=== PATIENT | female | born 2005 | race African-American/Black ===

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

== ENCOUNTER 2023-04-13 15:21 | Outpatient (CLI) | payer OTHER, SELFPAY | END 2023-04-13 15:22 | disposition home or self-care (01) | LOC: AMB 04-30 23:07 | PROVIDERS: PCP Family Medicine; Visit Provider Family Medicine | DX: R55 Syncope and collapse (principal) | CPT/HCPCS: A0425; A0427 ==

== ENCOUNTER 2023-04-13 15:49 | Emergency (ER) | payer OTHER, SELFPAY ==
[2023-04-13 15:54] VITALS: BP 137/91; PULSE 80; RESP 18; TEMP 37.6; O2SAT 95; BMI 33.5
[2023-04-13 16:00] VITALS: BP 137/92; PULSE 84; RESP 12; O2SAT 97
--- NOTE | 2023-04-13 16:07 | ED_ITS ---
HPI - General Adult General Chief complaint: Syncope/Fainted Stated complaint: Faint, short of breath Time Seen by Provider: 04/13/23 15:55 History of Present Illness HPI narrative: Patient was in class ([employer] [place] ) when she had 2 syncopal episodes while sitting at the desk. Notes stabbing chest pain. Currently being worked up for POTS. Patient notes she had a fever over the weekend up to 101.9, denies other sick symptoms. Blood sugar by EMS 90. 17-year-old young woman returning via EMS to the emergency department with concern of syncopal events. Apparently was sitting in class and felt things go black and a couple of occasions ultimately a 3rd as witnessed by significant other who accompanies. Does have a history of recurrent syncopal events currently being evaluated for POTS. Inconclusive to date. There was no head injury. Not described as particularly postictal. Apparently after these events today, had difficulty moving her extremities or standing up and so was recommended to come to the emergency department though she herself prefer not to. No shortness of breath. No cough or cold symptoms prior to this. No dysuria but is having some abdominal cramping now on day 2 of menses. Had a fever between 6 and 5 days ago measured up to 101.9. Has been chilled since. She has been worked up for what sounds to be a fibroma in the spine causing some radicular symptoms to her leg. She was not describing new pain prior to this event. Related Data Home Medications Medication Instructions Recorded Confirmed fluticasone propionate 50 1 spray intranasal DAILY 06/19/22 04/13/23 mcg/actuation nasal spray,suspension loratadine 10 mg tablet 10 mg PO DAILY 06/19/22 04/13/23 sertraline 100 mg tablet (Zoloft) 100 mg PO Q24H 06/19/22 04/13/23 sertraline 25 mg tablet (Zoloft) 25 mg PO DAILY 06/19/22 04/13/23 dextroamphetamine-amphetamine ER 1 cap PO DAILY 12/15/22 04/13/23 10 mg 24hr capsule,extend release (Adderall XR) divalproex 500 mg tablet,extended 500 mg PO DAILY 12/15/22 12/15/22 release 24 hr hydroxyzine HCl 25 mg tablet 25 - 50 mg PO DAILY PRN anxiety 04/13/23 04/13/23 ondansetron 4 mg disintegrating 4 mg PO Q8H PRN nausea/vomiting 04/13/23 04/13/23 tablet Previous Rx's Medication Instructions Recorded prednisone 20 mg tablet 20 mg PO BID #10 tabs 12/15/22 Allergies Allergy/AdvReac Type Severity Reaction Status Date / Time Barnes And Derivatives Allergy Severe Anaphylaxis Verified 04/13/23 15:53 tomato Allergy Intermediate Rash Verified 04/13/23 15:53 adhesive Allergy Unknown Verified 04/13/23 15:53 grapefruit Allergy Unknown Rash Verified 04/13/23 15:53 pineapple Allergy Unknown Rash Verified 04/13/23 15:53 dairy Allergy Intermediate Gi Uncoded 12/15/22 19:11 intolerance Review of Systems Status of ROS: Reports: 6 or more systems reviewed and unremarkable except as noted in History and below [facility] Medical History Seasonal allergies ?J30.2 - Other seasonal allergic rhinitis (ICD-10) Fainting ?R55 - Syncope and collapse (ICD-10) Anxiety and depression ?F41.9 - Anxiety disorder, unspecified (ICD-10) ?F32.A - Depression, unspecified (ICD-10) Asthma ?J45.909 - Unspecified asthma, uncomplicated (ICD-10) Anemia ?D64.9 - Anemia, unspecified (ICD-10) Surgical History History of wisdom tooth extraction ?K08.409 - Partial loss of teeth, unspecified cause, unspecified class (ICD- 10) Social History Smoking Status: Never smoker Do you use any of these nicotine containing products: Vaping Products Second hand tobacco smoke exposure: No How often do you have a drink containing alcohol: never How often do you have six or more drinks on one occasion: Never AUDIT-C Alcohol total score: 0 Non-prescribed substance use: denies use service: No Exam Narrative: Exam Narrative: Pleasant. NAD. With good energy. Breathing easily. Head is atraumatic. Cranial nerves 2-12 intact. No nystagmus evident. Pupils are equal and briskly reactive. Oropharynx unremarkable. Neck is supple without lymphadenopathy. TMs bilaterally are clear. She is sensitive though with this exam but I do not appreciate any inflammation of the ear canals. Heart in a regular rate and rhythm without murmur rub or gallop. Moving all extremities without difficulty. Sensation appears to be intact. Well-perfused peripherally. Abdomen is soft nontender in the upper abdomen. Const: Vital Signs, click to edit/add: Vital Signs - 24 hr 04/13/23 15:54 Temperature 99.6 F Pulse Rate [Pulse Oximeter] 80 Respiratory Rate 18 Blood Pressure [Ri ght Upper Arm] 137/91 H Pulse Oximetry 95 Oxygen Delivery Me thod Room Air Documenting provider has reviewed patient's vital signs: yes Course Vital Signs Vital signs: Initial Vital Signs Temperature 99.6 F 04/13/23 15:54 Temperature Source Temporal Artery Scan 04/13/23 15:54 Pulse Rate 80 04/13/23 15:54 Respiratory Rate 18 04/13/23 15:54 Blood Pressure 137/91 H 04/13/23 15:54 Blood Pressure Mean 106 H 04/13/23 15:54 Blood Pressure Position Sitting 04/13/23 15:54 Pulse Oximetry 95 04/13/23 15:54 Oxygen Delivery Method Room Air 04/13/23 15:54 Vital Signs Temperature 99.6 F 04/13/23 15:54 Pulse Rate 80 04/13/23 15:54 Respiratory Rate 18 04/13/23 15:54 Blood Pressure 137/91 H 04/13/23 15:54 Pulse Oximetry 95 04/13/23 15:54 Oxygen Delivery Method Room Air 04/13/23 15:54 Temperature 99.6 F 04/13/23 15:54 Pulse Rate 84 04/13/23 16:30 Respiratory Rate 11 L 04/13/23 16:30 Blood Pressure 137/87 04/13/23 16:30 Pulse Oximetry 96 04/13/23 16:30 Oxygen Delivery Method Room Air 04/13/23 16:00 Medical Decision Making MDM Narrative Medical decision making narrative: Has had extensive evaluation for the syncopal events. Lab evaluation by me in the past has been negative. Wondering if this may have been a pain response with history of low resting tone and anxiety. Have also though been under some physical stress as sounds to have been ill. With no other symptoms I would screen for COVID/influenza and urinalysis which in the setting of menses would wait to verify singular culture before treating. EKG had already been collected. Discussed considerations and offered IV hydration as well as antiemetic as expressing some nausea. They would rather return home. See patient discharge plan Lab Data Labs: Lab Results 04/13/23 04/13/23 Range/Units 16:25 16:55 Urine Color Yellow (Yellow) Urine Appearance Clear (Clear) Urine pH 7.5 (5.0-8.5) Ur Specific [place] 1.025 (1.000-1.030) Urine Protein Negative (Negative) Urine Glucose (UA) Negative (Negative) Urine Ketones Negative (Negative) Urine Blood 1+ A (Negative) Urine Nitrite Negative (Negative) Urine Bilirubin Negative (Negative) Urine Urobilinogen 0.2 (0.2-1.0) Ur Leukocyte Esterase Negative (Negative) Urine RBC 0-2 (0-2) Urine WBC 0-2 (0-5) Ur Squamous Epith Cells Few (None-Few) Urine Bacteria Few A (None) SARS-CoV-2 (PCR) Negative SARS-CoV-2 (Negative) Influenza Type A (PCR) Negative PCR FLU A (Negative) Influenza Type B (PCR) Negative PCR FLU B (Negative) ECG Data Attestation: I personally reviewed and interpreted this ECG as follows: (Normal sinus rhythm rate of 79 without acute ischemic changes.) Discharge Plan Discharge Clinical Impression: Fever, Syncope Patient Disposition: Home w/ Parent or Adult Condition: Improved Additional Instructions: Stay well-hydrated. Rest. Ibuprofen or acetaminophen for chills. I will call you if any of these results warrant discussion or positive. Return as needed. Prescriptions: No Action fluticasone propionate 50 mcg/actuation spray,suspension 1 spray INTRANASAL DAILY Patient Comments: INSTILL 1 SPRAY INTO AFFECTED NOSTRIL/S DAILY loratadine 10 mg tablet 10 mg PO DAILY Patient Comments: TAKE 1 TABLET (10 MG TOTAL) BY MOUTH DAILY sertraline [Zoloft] 100 mg tablet 100 mg PO Q24H sertraline [Zoloft] 25 mg tablet 25 mg PO DAILY divalproex 500 mg tablet extended release 24 hr 500 mg PO DAILY dextroamphetamine-amphetamine [Adderall XR] 10 mg capsule,extended release 24hr 1 cap PO DAILY prednisone 20 mg tablet 20 mg PO BID Qty: 10 0RF hydroxyzine HCl 25 mg tablet 25 - 50 mg PO DAILY PRN (Reason: anxiety) ondansetron 4 mg tablet,disintegrating 4 mg PO Q8H PRN (Reason: nausea/vomiting) Follow Up/Referrals: Evelia Garcia MD [Primary Care Provider] - Stand Alone Forms: [employer] Info Instructions
[2023-04-13 16:30] VITALS: BP 137/87; PULSE 84; RESP 11; O2SAT 96
[2023-04-13 17:03] LABS: Appearance Urine Clear (Clear); Bilirubin Urine Negative (Negative); Blood Urine 1+ (Negative); Color Urine Yellow (Yellow); Glucose Urine Negative (Negative); Ketones Urine Negative (Negative); Leukocyte Esterase Urine Negative (Negative); Nitrite Urine Negative (Negative); Protein Urine Negative (Negative); Specific Gravity Urine 1.025 (1.000-1.030); Urobilinogen Urine 0.2 (0.2-1.0); pH Urine 7.5 (5.0-8.5)
[2023-04-13 17:32] LABS: Bacteria Urine Few; RBC Urine 0-2 (0-2); Squamous Epithelial Cell Urine Few (None-Few); WBC Urine 0-2 (0-5)
[2023-04-13 17:41] LABS: PCR FLU A Negative PCR FLU A (Negative); PCR FLU B Negative PCR FLU B (Negative)
[2023-04-13 17:43] LABS: SARS PCR* Negative SARS-CoV-2 (Negative)
--- NOTE | 2023-04-19 15:13 | ED.NURSE ---
Patient called requesting note that she was seen in ED on 04/13/23 for travel reimbursement (cancelled flight). Note left at front desk receptionist desk for garbage pick up man stating patient was seen in ED on 04/13/23.
== END 2023-04-13 17:07 | disposition home or self-care (01) ==
LOC: ED 16:52
PROVIDERS: Emergency Provider Family Medicine; PCP Family Medicine
DX: R50.9 Fever, unspecified (principal); R55 Syncope and collapse
CPT/HCPCS: 81001; 87086; 87631; 93005; 99284

== ENCOUNTER 2023-04-18 17:43 | Outpatient (CLI) | payer OTHER, SELFPAY | END 2023-04-18 17:44 | disposition home or self-care (01) | PROVIDERS: PCP Family Medicine; Visit Provider Registered Nurse | DX: R50.9 Fever, unspecified (principal); R51.9 Headache, unspecified | CPT/HCPCS: 86618 ==

== ENCOUNTER 2023-06-06 18:55 | Outpatient (CLI) | payer OTHER, SELFPAY | END 2023-06-06 18:56 | disposition home or self-care (01) | LOC: AMB 06-09 06:09 | PROVIDERS: PCP Family Medicine; Visit Provider Family Medicine | DX: R56.9 Unspecified convulsions (principal); R55 Syncope and collapse | CPT/HCPCS: A0998 ==

== ENCOUNTER 2023-06-06 19:53 | Outpatient (CLI) | payer OTHER, MEDICAID, SELFPAY | END 2023-06-06 19:54 | disposition home or self-care (01) | LOC: AMB 06-09 06:13 | PROVIDERS: PCP Family Medicine; Visit Provider Family Medicine | DX: R55 Syncope and collapse (principal); R56.9 Unspecified convulsions | CPT/HCPCS: A0425; A0427 ==

== ENCOUNTER 2023-06-06 20:21 | Emergency (ER) | payer OTHER, MEDICAID, SELFPAY ==
[2023-06-06 20:38] VITALS: BP 132/101; PULSE 84; RESP 16; TEMP 36.7; O2SAT 99
[2023-06-06 20:51] VITALS: BP 137/92; PULSE 88; O2SAT 98
[2023-06-06 20:52] VITALS: PULSE 89; RESP 19; O2SAT 98
[2023-06-06 21:00] VITALS: PULSE 88; RESP 17; O2SAT 98
[2023-06-06 21:01] VITALS: BP 135/94; PULSE 83; RESP 18; O2SAT 97
[2023-06-06 21:45] VITALS: BP 127/88
--- NOTE | 2023-06-06 22:28 | ED.GENADULT ---
HPI - General Adult General Date Seen: 06/06/23 Chief complaint: Syncope/Fainted Stated complaint: Syncopal seizure Time Seen by Provider: 06/06/23 20:48 History of Present Illness HPI narrative: This is a 17-year-old female brought to the ER today by EMS for possible seizures. [facility] reports that she has a history of possible absence seizures when she was a child, also is currently being worked up for seizures, being worked up for POTS, as well as other medical conditions. EMS reports that she has had multiple episodes today where she seemed to have eye fluttering and unresponsive spells. There been perhaps 20 or 25 episodes today. 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 Her roommate had witnessed the spells. Initially the patient had refused to come to the ER even though her roommate wanted her to come in for evaluation. Her roommate then insisted that they come. They were coming by private car and she had more spells in route. 911 was called. Paramedics responded. The notice that the patient had episodes which seem to have snoring respirations, let her head slumped back, eyes were fluttering, and went unresponsive. She did not respond to sternal rub. No definite seizure activity in her arms or legs. She had a couple more episodes EN route. EMS thought they saw that the patient desaturated down to the 70s briefly. They put her on oxygen. They have not been able to establish an IV. Related Data Home Medications Medication Instructions Recorded Confirmed fluticasone propionate 50 1 spray intranasal DAILY 06/19/22 04/18/23 mcg/actuation nasal spray,suspension loratadine 10 mg tablet 10 mg PO DAILY 06/19/22 04/18/23 sertraline 100 mg tablet (Zoloft) 100 mg PO Q24H 06/19/22 04/18/23 sertraline 25 mg tablet (Zoloft) 25 mg PO DAILY 06/19/22 04/18/23 dextroamphetamine-amphetamine ER 1 cap PO DAILY 12/15/22 04/18/23 10 mg 24hr capsule,extend release (Adderall XR) divalproex 500 mg tablet,extended 500 mg PO DAILY 12/15/22 04/18/23 release 24 hr hydroxyzine HCl 25 mg tablet 25 - 50 mg PO DAILY PRN anxiety 04/13/23 04/18/23 ondansetron 4 mg disintegrating 4 mg PO Q8H PRN nausea/vomiting 04/13/23 04/18/23 tablet Previous Rx's Medication Instructions Recorded prednisone 20 mg tablet 20 mg PO BID #10 tabs 12/15/22 Allergies Allergy/AdvReac Type Severity Reaction Status Date / Time [place] And Derivatives Allergy Severe Anaphylaxis Verified 04/13/23 15:53 tomato Allergy Intermediate Rash Verified 04/13/23 15:53 adhesive Allergy Unknown Verified 04/13/23 15:53 grapefruit Allergy Unknown Rash Verified 04/13/23 15:53 pineapple Allergy Unknown Rash Verified 04/13/23 15:53 dairy Allergy Intermediate Gi Uncoded 12/15/22 19:11 intolerance PFSH PFSH Medical History Seasonal allergies ?J30.2 - Other seasonal allergic rhinitis (ICD-10) Fainting ?R55 - Syncope and collapse (ICD-10) Anxiety and depression ?F41.9 - Anxiety disorder, unspecified (ICD-10) ?F32.A - Depression, unspecified (ICD-10) Asthma ?J45.909 - Unspecified asthma, uncomplicated (ICD-10) Anemia ?D64.9 - Anemia, unspecified (ICD-10) Surgical History History of wisdom tooth extraction ?K08.409 - Partial loss of teeth, unspecified cause, unspecified class (ICD-10) Social History Smoking Status: Never smoker Do you use any of these nicotine containing products: Vaping Products Second hand tobacco smoke exposure: No How often do you have a drink containing alcohol: never How often do you have six or more drinks on one occasion: Never AUDIT-C Alcohol total score: 0 Non-prescribed substance use: denies use service: No Exam Narrative: Exam Narrative: A-patent. No stridor. Bi-lung sounds clear and equal. Oxygen 98 100% on room air. C-no active bleeding. Nurses are working on getting an IV. Blood pressure normal. Normal cap refill D-patient presents with unusual spells. She has twitching her eyelids and fluttering her eyes side to side without any other clear facial tic. She is making some unusual groaning/snoring respirations sounds. Initially concerning for possible partial seizure. EMS report that she did not respond to sternal rub. She does respond to trapezius pinch which abruptly ceases her fluttering she becomes awake. She says that her shoulder is sore. She had another episode of fluttering and sonorous respirations that again ceased when she was splashed in the face with 5 mL of cold saline. Given the abrupt response to external stimuli that causes sensation of these episodes I am confident they are not seizures. Once her seizure-like activity spells ceases she is more conversant. Airways patent. Phonation is normal. Constitutional: Appears well-developed and well-nourished. Alert. Annual she is initially fairly conversant. When I try to ask her about any psychosocial stressors she usually says there are none. She then volunteers that her mother and her mother's are getting . She says that the divorce is not bother her but the fact that her mother's may get ?half of her stuff? including her dog Reagan, it really bothers her. She feels like it is not fair, even though that is the way [place] law his written. When we start talking about this she then developed some odd tics, twisting her head to the right in turning her head right word. I verbally challenged her that I think the tics or probably psychosomatic and she stopped them. Non toxic. HENT: Head: Atraumatic. Nose: Nose normal. Mouth/Throat: Oral mucosa is clear and moist. no trismus. Pharynx normal. Tonsils symmetric. No tonsillar enlargement, erythema, or exudate. Eyes: Conjunctivae normal. EOM normal. Pupils equal, round, and reactive to light. No scleral icterus. Neck: Normal range of motion. Neck supple. No tracheal deviation present. Cardiovascular: Normal rate, regular rhythm. No gallop. No friction rub. No murmur heard. Symmetric radial artery pulses Pulmonary/Chest: Effort normal. No stridor. No respiratory distress. No wheezes. No rales. No rhonchi . No tenderness. Abdominal: Soft. Bowel sounds normal. No distension. No mass. No tenderness. No rebound. No guarding. Musculoskeletal: RUE: Normal range of motion. No tenderness. No deformity LUE: Normal range of motion. No tenderness. No deformity RLE: Normal range of motion. No edema. No tenderness. No deformity LLE: Normal range of motion. No edema. No tenderness. No deformity Lymph: No cervical adenopathy. Neurological: Alert and oriented to person, place, and time. Normal strength. CN II-VII intact. No sensory deficit. GCS eye subscore is 4. GCS verbal subscore is 5. GCS motor subscore is 6. Normal coordination Skin: Skin is warm and dry. No rash noted. No pallor. Normal capillary refill. Psychiatric: Patient presented by EMS after having had multiple repetitive neurologic events. Based on her response to physical stimuli here in the ER I am confident that these are nonepileptic seizures. These are probably pseudoseizures. She also developed some tics here in the ER. I tried to spend time with the patient, and her roommate, to discuss the presentation. I am concerned that these probably are sub conscious/manifestations of mental health. My recommendation was to pursue her that workup. I requested that the patient talk with JOSE. We discussed that perhaps we could add additional outpatient resources, or even possibly pursue an inpatient admission if the spells are becoming so frequent that they were disruptive to her life, and her roommates life, in the dorm. Patient declines to speak with josek. She refuses. I discussed that it is difficult to get her any resources without getting further evaluation with them. Patient does not want inpatient admission. She does not want any further outpatient resources. Patient says she is not suicidal. She denies any other stressors other than her mother's divorce. She says she likes her professors and is doing well in her classes. She denies any other relationship stresses. Subsequently her roommate arrives. Roommate is very supportive. Const: Vital Signs, click to edit/add: Vital Signs - 24 hr 06/06/23 20:38 06/06/23 20:51 06/06/23 20:52 Temperature 98.1 F Pulse Rate 88 89 Pulse Rate [Pulse Oximeter] 84 Respiratory Rate 16 19 Blood Pressure 137/92 H Blood Pressure [Ri ght Upper Arm] 132/101 H Pulse Oximetry 99 98 98 Oxygen Delivery Me thod Room Air 06/06/23 21:00 06/06/23 21:01 06/06/23 21:45 Temperature Pulse Rate 88 83 Pulse Rate [Pulse Oximeter] Respiratory Rate 17 18 Blood Pressure 135/94 H 127/88 Blood Pressure [Ri ght Upper Arm] Pulse Oximetry 98 97 Oxygen Delivery Me thod Course Course ED Course: Initial evaluation performed. We determined that the patient was having pseudoseizures and not epileptic seizures. I offered further evaluation and mental health evaluation but patient is refusing. She says she just wants to go home. I asked the patient to at least complete an ambulation trial. When she stood up at the edge of the bed she is says she got dizzy and nearly fainted. She lowered herself to the floor. This apparently has been a problem for her lately and she is being worked up for POTS. Vital signs are otherwise stable, including blood pressure. I do not think this truly represents a cardiac event or near syncope. Suspect this is probably related to her mental health, similar to her pseudoseizures in her tics from earlier in the ER course. Patient rested in bed for a while. I re-evaluated. I had another long conversation with the patient and her roommate. I again recommended that we pursue a mental health evaluation. The patient again firmly declines. She is really resistant to pursuing that avenue of evaluation. She says she just wants to go home. I asked her to re-attempt ambulation trial with me. She was able to stand up. She did not have any dizziness or fall. Her gait was abnormal. Her steps were slow. With each step she would pause for a minute voice with her the rear foot up on the toes and then abruptly swing at forward in step-down. Then the new rear foot would pause upon the toes and then swing forward. She was initially holding onto me and grabbing onto the cabinets in her room. When I asked her why she was holding on for balance and challenge her on that she actually then could walk without holding onto anything. She ambulated in the hallway with me with her slow and irregular gait all the way to the bathroom without falling. She then ambulated back from the bathroom with a more steady gait. No longer which she having the pauses with her feet boys on the toes. While she was in the bathroom I met with the patient's roommate to disc to meet privately. Patient verbalizes her understanding that were concerned about a mental health crisis. When she got back from her bathroom, I again offered further evaluation of the patient. I am not clear if she has any insight about what is causing her symptoms. She does not want further evaluation. She just wants discharge home. As she is now ambulatory, not suicidal, no longer having her seizure-like spells, I do not have any criteria to place her on a hold. I told her, with honesty, that I feel like it is a mistake for her to go home at this point without some further resources but ultimately I cannot force her to stay. She discharged home with a roommate. She says she will follow up with her outpatient psychiatrist and her counselor. Reevaluation(s) Reevaluation #1: After the patient left her mother Jana called [phone] for an update. I called the patient's mother back. I left a message but she did not answer. Vital Signs Vital signs: Initial Vital Signs Temperature 98.1 F 06/06/23 20:38 Temperature Source Temporal Artery Scan 06/06/23 20:38 Pulse Rate 84 06/06/23 20:38 Respiratory Rate 16 06/06/23 20:38 Blood Pressure 132/101 H 06/06/23 20:38 Blood Pressure Mean 111 H 06/06/23 20:38 Blood Pressure Position Supine 06/06/23 20:38 Pulse Oximetry 99 06/06/23 20:38 Oxygen Delivery Method Room Air 06/06/23 20:38 Vital Signs Temperature 98.1 F 06/06/23 20:38 Pulse Rate 84 06/06/23 20:38 Respiratory Rate 16 06/06/23 20:38 Blood Pressure 132/101 H 06/06/23 20:38 Pulse Oximetry 99 06/06/23 20:38 Oxygen Delivery Method Room Air 06/06/23 20:38 Temperature 98.1 F 06/06/23 20:38 Pulse Rate 83 06/06/23 21:01 Respiratory Rate 18 06/06/23 21:01 Blood Pressure 127/88 06/06/23 21:45 Pulse Oximetry 97 06/06/23 21:01 Oxygen Delivery Method Room Air 06/06/23 20:38 Discharge Plan Discharge Clinical Impression: Psychogenic nonepileptic seizure, Behavioral tic Patient Disposition: Home, Self-Care Condition: Stable Instructions: Epilepsy (DC) Additional Instructions: Please return to the ER right away if you have any concerns, more shaking events, unconscious spells, or any other problems. Please follow-up with her psychiatrist and her counselor soon as possible. Please follow-up with your doctors for your recheck. Prescriptions: No Action fluticasone propionate 50 mcg/actuation spray,suspension 1 spray INTRANASAL DAILY Patient Comments: INSTILL 1 SPRAY INTO AFFECTED NOSTRIL/S DAILY loratadine 10 mg tablet 10 mg PO DAILY Patient Comments: TAKE 1 TABLET (10 MG TOTAL) BY MOUTH DAILY sertraline [Zoloft] 100 mg tablet 100 mg PO Q24H sertraline [Zoloft] 25 mg tablet 25 mg PO DAILY divalproex 500 mg tablet extended release 24 hr 500 mg PO DAILY dextroamphetamine-amphetamine [Adderall XR] 10 mg capsule,extended release 24hr 1 cap PO DAILY prednisone 20 mg tablet 20 mg PO BID Qty: 10 0RF hydroxyzine HCl 25 mg tablet 25 - 50 mg PO DAILY PRN (Reason: anxiety) ondansetron 4 mg tablet,disintegrating 4 mg PO Q8H PRN (Reason: nausea/vomiting) Follow Up/Referrals: Evelia Garcia MD [Primary Care Provider] - Stand Alone Forms: [employer] Info Instructions
== END 2023-06-06 22:35 | disposition home or self-care (01) ==
PROVIDERS: Emergency Provider Emergency Medicine; PCP Family Medicine
DX: R56.9 Unspecified convulsions (principal); F95.8 Other tic disorders
CPT/HCPCS: 99283; 99284

== ENCOUNTER 2023-06-08 13:04 | Outpatient (CLI) | payer OTHER, SELFPAY | END 2023-06-08 13:05 | disposition home or self-care (01) | LOC: AMB 06-09 07:12 | PROVIDERS: PCP Family Medicine; Visit Provider Family Medicine | DX: R55 Syncope and collapse (principal) | CPT/HCPCS: A0425; A0427 ==

== ENCOUNTER 2023-06-08 13:41 | Emergency (ER) | payer OTHER, SELFPAY ==
[2023-06-08 13:45] VITALS: BP 119/86; PULSE 90; RESP 16; TEMP 36.5; O2SAT 98; BMI 34.2
--- NOTE | 2023-06-08 13:55 | ED_ITS ---
HPI - General Adult General Time Seen by Provider: 13:55 Date Seen: 06/08/23 Chief complaint: Syncope/Fainted Stated complaint: syncope Time Seen by Provider: 06/08/23 13:45 Source: patient Mode of arrival: EMS History of Present Illness HPI narrative: Patient is a 17-year-old single student who presents with near syncope x2 today. She apparently was in with other students and passed out and was taken to the ground, she passed out nearly in the ambulance gurney. She was brought in by EMS. Patient has been here several times and has probable significant psychosocial issues, anxiety depression, she there has been some question whether she has seizures but she canceled and EEG she had in the past due to a final tests test. Patient reports she really likes school she is from [facility], she was here Tuesday with similar symptoms. She has had no chest pain breathing problem fever chills or other systemic signs of illness no leg swelling or edema no bleeding or clotting problems. Was recommended she get mental health evaluation. She has worked with s iron worker and neurologist, as well as mental health professionals and it is felt that she may have a component of POTS syndrome, or a manifestation of mental illness although that did not make her happy to hear that. Patient denies symptoms at this time and feels well. She has noticed when she eats salty foods she feels much better. She is enjoying her classes she is from [place] as mention. She denies . She reports she has had no trauma or injury. Related Data Home Medications Medication Instructions Recorded Confirmed fluticasone propionate 50 1 spray intranasal DAILY 06/19/22 06/08/23 mcg/actuation nasal spray,suspension loratadine 10 mg tablet 10 mg PO DAILY 06/19/22 06/08/23 sertraline 100 mg tablet (Zoloft) 100 mg PO Q24H 06/19/22 06/08/23 sertraline 25 mg tablet (Zoloft) 25 mg PO DAILY 06/19/22 06/08/23 dextroamphetamine-amphetamine ER 1 cap PO DAILY 12/15/22 06/08/23 10 mg 24hr capsule,extend release (Adderall XR) divalproex 500 mg tablet,extended 500 mg PO DAILY 12/15/22 06/08/23 release 24 hr hydroxyzine HCl 25 mg tablet 25 - 50 mg PO DAILY PRN anxiety 04/13/23 06/08/23 ondansetron 4 mg disintegrating 4 mg PO Q8H PRN nausea/vomiting 04/13/23 06/08/23 tablet Previous Rx's Medication Instructions Recorded prednisone 20 mg tablet 20 mg PO BID #10 tabs 12/15/22 Allergies Allergy/AdvReac Type Severity Reaction Status Date / Time [place] And Derivatives Allergy Severe Anaphylaxis Verified 06/08/23 14:05 tomato Allergy Intermediate Rash Verified 06/08/23 14:05 adhesive Allergy Unknown Verified 06/08/23 14:05 grapefruit Allergy Unknown Rash Verified 06/08/23 14:05 pineapple Allergy Unknown Rash Verified 06/08/23 14:05 dairy Allergy Intermediate Gi Uncoded 12/15/22 19:11 intolerance Review of Systems Status of ROS: Reports: 6 or more systems reviewed and unremarkable except as noted in History and below [facility] Medical History Seasonal allergies ?J30.2 - Other seasonal allergic rhinitis (ICD-10) Fainting ?R55 - Syncope and collapse (ICD-10) Anxiety and depression ?F41.9 - Anxiety disorder, unspecified (ICD-10) ?F32.A - Depression, unspecified (ICD-10) Asthma ?J45.909 - Unspecified asthma, uncomplicated (ICD-10) Anemia ?D64.9 - Anemia, unspecified (ICD-10) Surgical History History of wisdom tooth extraction ?K08.409 - Partial loss of teeth, unspecified cause, unspecified class (ICD- 10) Social History Smoking Status: Never smoker Do you use any of these nicotine containing products: Vaping Products Second hand tobacco smoke exposure: No How often do you have a drink containing alcohol: never How often do you have six or more drinks on one occasion: Never AUDIT-C Alcohol total score: 0 Non-prescribed substance use: denies use service: No Exam Narrative: Exam Narrative: Objective in general the patient is animated alert, no distress cough talking in even unlabored sentences. Vital signs per a paramedics are unremarkable Alert orient x3 Neurologic nonfocal Pulses regular Heart regular no murmur Lungs clear denies abdominal pain Good peripheral perfusion Const: Vital Signs, click to edit/add: Vital Signs - 24 hr 06/08/23 13:45 Temperature 97.7 F Pulse Rate [Pulse Oximeter] 90 Respiratory Rate 16 Blood Pressure [Ri ght Upper Arm] 119/86 Pulse Oximetry 98 Oxygen Delivery Me thod Room Air Course Vital Signs Vital signs: Initial Vital Signs Temperature 97.7 F 06/08/23 13:45 Temperature Source Temporal Artery Scan 06/08/23 13:45 Pulse Rate 90 06/08/23 13:45 Pulse Rhythm Regular 06/08/23 13:45 Pulse Strength 3+ Normal 06/08/23 13:45 Respiratory Rate 16 06/08/23 13:45 Blood Pressure 119/86 06/08/23 13:45 Blood Pressure Mean 97 06/08/23 13:45 Blood Pressure Position Semi-Fowlers 06/08/23 13:45 Pulse Oximetry 98 06/08/23 13:45 Oxygen Delivery Method Room Air 06/08/23 13:45 Vital Signs Temperature 97.7 F 06/08/23 13:45 Pulse Rate 90 06/08/23 13:45 Respiratory Rate 16 06/08/23 13:45 Blood Pressure 119/86 06/08/23 13:45 Pulse Oximetry 98 06/08/23 13:45 Oxygen Delivery Method Room Air 06/08/23 13:45 Temperature 97.7 F 06/08/23 13:45 Pulse Rate 90 06/08/23 13:45 Respiratory Rate 16 06/08/23 13:45 Blood Pressure 119/86 06/08/23 13:45 Pulse Oximetry 98 06/08/23 13:45 Oxygen Delivery Method Room Air 06/08/23 13:45 Medical Decision Making [facility] Narrative Medical decision making narrative: 17-year-old since college student with mental health issues, question of POTS syndrome. Possible pseudo-seizure activity. At this point recommend just rechecking her EKG which looks to show normal sinus rhythm by my read. Also check her heme 4 basic 7 and she will be allowed to eat some salty food which tends to make her feel better. She feels she is able to go home and I would agree with that. She can follow up with regular physicians as needed. Addendum 2:35 p.m. patient has been stable, and has normal lab studies. EKG looks reassuring I thin we can allow the patient to proceed home. Follow up with providers as planned return as needed. Lab Data Labs: Lab Results 06/08/23 Range/Units 13:59 WBC 4.24 L (4.50-11.00) K/uL RBC 4.29 (4.00-5.20) m/uL Hgb 12.5 (12.0-16.0) gm/dL Hct 39.7 (33.0-51.0) % MCV 93 (80-100) fL MCH 29 (26-34) pg MCHC 32 (32-36) gm/dL RDW Coeff of Preeti 11.5 (11.5-15.5) % Plt Count 274 (140-440) K/uL Neut % (Auto) 41.7 L (42.0-72.0) % Lymph % (Auto) 45.3 H (20-44) % [place] % (Auto) 9.7 (0.0-11.0) % Eos % (Auto) 2.6 (0.0-7.0) % Baso % (Auto) 0.7 (0.0-3.0) % Neut # (Auto) 1.80 (1.7-7.0) K/uL Lymph # (Auto) 1.90 (0.90-2.90) K/uL [place] # (Auto) 0.40 (0.00-0.90) K/UL Eos # (Auto) 0.10 (0.00-0.50) K/uL Baso # (Auto) 0.00 (0.00-0.30) K/uL Abs Immat Gran (auto) 0.00 (0.00-0.30) K/uL Imm/Tot Granulo (auto) 0.0 % Sodium 140 (135-149) mmol/L Potassium 4.7 (3.6-5.1) mmol/L Chloride 106 (96-114) mmol/L Carbon Dioxide 27 (20-32) mmol/L Anion Gap 7 (7-15) mEq/L BUN 15 (5-24) mg/dL Creatinine 0.6 (0.6-1.2) mg/dL Estimated Creat Clear 152.13 Estimated GFR 133 ml/min Glucose 83 (60-115) mg/dL Calcium 9.7 (8.7-10.8) mg/dL Discharge Plan Discharge Clinical Impression: Behavioral tic, Near syncope Condition: Improved Additional Instructions: Recommend salty food, continue home medications, follow up with regular physician group as planned. Return to ED as needed. Would avoid driving or athletics over the next week or 2 until re-evaluated by your care team Activity Level: No Restrictions Discharge Diet: Regular Prescriptions: No Action fluticasone propionate 50 mcg/actuation spray,suspension 1 spray INTRANASAL DAILY Patient Comments: INSTILL 1 SPRAY INTO AFFECTED NOSTRIL/S DAILY loratadine 10 mg tablet 10 mg PO DAILY Patient Comments: TAKE 1 TABLET (10 MG TOTAL) BY MOUTH DAILY sertraline [Zoloft] 100 mg tablet 100 mg PO Q24H sertraline [Zoloft] 25 mg tablet 25 mg PO DAILY divalproex 500 mg tablet extended release 24 hr 500 mg PO DAILY dextroamphetamine-amphetamine [Adderall XR] 10 mg capsule,extended release 24hr 1 cap PO DAILY prednisone 20 mg tablet 20 mg PO BID Qty: 10 0RF hydroxyzine HCl 25 mg tablet 25 - 50 mg PO DAILY PRN (Reason: anxiety) ondansetron 4 mg tablet,disintegrating 4 mg PO Q8H PRN (Reason: nausea/vomiting) Follow Up/Referrals: Evelia Garcia MD [Primary Care Provider] - Stand Alone Forms: [employer] Info Instructions
[2023-06-08 14:07] LABS: Basophils Percent Auto 0.7 % (0.0-3.0); Eosinophils Percent Auto 2.6 % (0.0-7.0); Hematocrit 39.7 % (33.0-51.0); Hemoglobin* 12.5 gm/dL (12.0-16.0); Lymphocytes Percent Auto 45.3 % (20-44); Mean Corpuscular HGB Conc 32 gm/dL (32-36); Mean Corpuscular Hemoglobin 29 pg (26-34); Mean Corpuscular Volume 93 fL (80-100); Monocytes Percent Auto 9.7 % (0.0-11.0); Neutrophils Percent Auto 41.7 % (42.0-72.0); Platelet Count* 274 K/uL (140-440); RDW Coefficient of Variation % 11.5 % (11.5-15.5); Red Blood Count 4.29 m/uL (4.00-5.20); White Blood Count* 4.24 K/uL (4.50-11.00)
[2023-06-08 14:21] LABS: Slide Review Reflex No
[2023-06-08 14:28] LABS: Chloride* 106 mmol/L (96-114); Potassium* 4.7 mmol/L (3.6-5.1); Sodium* 140 mmol/L (135-149)
[2023-06-08 14:31] LABS: Anion Gap 7 mEq/L (7-15); Blood Urea Nitrogen* 15 mg/dL (5-24); Carbon Dioxide* 27 mmol/L (20-32); Creatinine* 0.6 mg/dL (0.6-1.2); Est. Creatinine Clearance* 152.13; Estimated Glomerular Filt Rate 133 ml/min; Glucose* 83 mg/dL (60-115)
[2023-06-08 14:32] LABS: Calcium* 9.7 mg/dL (8.7-10.8)
== END 2023-06-08 14:45 | disposition home or self-care (01) ==
PROVIDERS: Emergency Provider Family Medicine; PCP Family Medicine
DX: F95.8 Other tic disorders (principal); R55 Syncope and collapse
CPT/HCPCS: 36415; 80048; 85025; 93005; 99284

== ENCOUNTER 2023-06-14 18:44 | Outpatient (CLI) | payer OTHER, SELFPAY | END 2023-06-14 18:45 | disposition home or self-care (01) | LOC: AMB 06-20 15:15 | PROVIDERS: PCP Family Medicine; Visit Provider Student in an Organized Health Care Education/Training Program | DX: R53.1 Weakness (principal) | CPT/HCPCS: A0998 ==

== ENCOUNTER 2023-06-15 12:18 | Outpatient (CLI) | payer OTHER, SELFPAY | END 2023-06-15 12:19 | disposition home or self-care (01) | LOC: AMB 06-20 15:32 | PROVIDERS: PCP Family Medicine; Visit Provider Family Medicine | DX: R55 Syncope and collapse (principal) | CPT/HCPCS: A0425; A0429 ==

== ENCOUNTER 2023-06-15 12:42 | Emergency (ER) | payer OTHER, SELFPAY ==
--- NOTE | 2023-06-15 12:51 | ED.GENADULT ---
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 She has been diagnosed with potential pots disorder, and has been worked up by Neurology and Cardiology. She felt too hot today as she is ?unable to regulate her temperature. And stepped outside and felt lightheaded and dizzy. School demanded that she go with the ambulance to the hospital. She feels fine at this time. She ate breakfast today, she has been drinking water. She has no dysuria frequency chest pain breathing problem fevers chills cough chest pain headache or other issues. Related Data Home Medications Medication Instructions Recorded Confirmed fluticasone propionate 50 1 spray intranasal DAILY 06/19/22 06/08/23 mcg/actuation nasal spray,suspension loratadine 10 mg tablet 10 mg PO DAILY 06/19/22 06/08/23 sertraline 100 mg tablet (Zoloft) 100 mg PO Q24H 06/19/22 06/08/23 sertraline 25 mg tablet (Zoloft) 25 mg PO DAILY 06/19/22 06/08/23 dextroamphetamine-amphetamine ER 1 cap PO DAILY 12/15/22 06/08/23 10 mg 24hr capsule,extend release (Adderall XR) divalproex 500 mg tablet,extended 500 mg PO DAILY 12/15/22 06/08/23 release 24 hr hydroxyzine HCl 25 mg tablet 25 - 50 mg PO DAILY PRN anxiety 04/13/23 06/08/23 ondansetron 4 mg disintegrating 4 mg PO Q8H PRN nausea/vomiting 04/13/23 06/08/23 tablet Previous Rx's Medication Instructions Recorded prednisone 20 mg tablet 20 mg PO BID #10 tabs 12/15/22 Allergies Allergy/AdvReac Type Severity Reaction Status Date / Time [place] And Derivatives Allergy Severe Anaphylaxis Verified 06/08/23 14:05 tomato Allergy Intermediate Rash Verified 06/08/23 14:05 adhesive Allergy Unknown Verified 06/08/23 14:05 grapefruit Allergy Unknown Rash Verified 06/08/23 14:05 pineapple Allergy Unknown Rash Verified 06/08/23 14:05 dairy Allergy Intermediate Gi Uncoded 12/15/22 19:11 intolerance Review of Systems Status of ROS: Reports: 6 or more systems reviewed and unremarkable except as noted in History and below [facility] Medical History Seasonal allergies ?J30.2 - Other seasonal allergic rhinitis (ICD-10) Fainting ?R55 - Syncope and collapse (ICD-10) Anxiety and depression ?F41.9 - Anxiety disorder, unspecified (ICD-10) ?F32.A - Depression, unspecified (ICD-10) Asthma ?J45.909 - Unspecified asthma, uncomplicated (ICD-10) Anemia ?D64.9 - Anemia, unspecified (ICD-10) Surgical History History of wisdom tooth extraction ?K08.409 - Partial loss of teeth, unspecified cause, unspecified class (ICD-10) Social History Smoking Status: Never smoker Do you use any of these nicotine containing products: Vaping Products Second hand tobacco smoke exposure: No How often do you have a drink containing alcohol: never How often do you have six or more drinks on one occasion: Never AUDIT-C Alcohol total score: 0 Non-prescribed substance use: denies use service: No Exam Narrative: Exam Narrative: Objective: General patient apparent distress reading or computer interactive Vital signs are within normal limits HEENT is unremarkable no facial asymmetry Heart rhythm regular heart murmur Neurologic in upper extremities nonfocal Const: Vital Signs, click to edit/add: Vital Signs - 24 hr 06/15/23 12:54 06/15/23 13:05 Temperature 97.1 F L 97.1 F L Pulse Rate [Right Pulse Oximeter] 88 88 Respiratory Rate 16 16 Blood Pressure [Ri ght Upper Arm] 148/95 H 148/95 H Pulse Oximetry 99 Oxygen Delivery Me thod Room Air Course Vital Signs Vital signs: Initial Vital Signs Temperature 97.1 F L 06/15/23 12:54 Temperature Source Temporal Artery Scan 06/15/23 12:54 Pulse Rate 88 06/15/23 12:54 Respiratory Rate 16 06/15/23 12:54 Blood Pressure 148/95 H 06/15/23 12:54 Blood Pressure Mean 112 H 06/15/23 12:54 Blood Pressure Position Sitting 06/15/23 12:54 Pulse Oximetry 99 06/15/23 12:54 Oxygen Delivery Method Room Air 06/15/23 12:54 Vital Signs Temperature 97.1 F L 06/15/23 12:54 Pulse Rate 88 06/15/23 12:54 Respiratory Rate 16 06/15/23 12:54 Blood Pressure 148/95 H 06/15/23 12:54 Pulse Oximetry 99 06/15/23 12:54 Oxygen Delivery Method Room Air 06/15/23 12:54 Temperature 97.1 F L 06/15/23 13:05 Pulse Rate 88 06/15/23 13:05 Respiratory Rate 16 06/15/23 13:05 Blood Pressure 148/95 H 06/15/23 13:05 Pulse Oximetry 99 06/15/23 12:54 Oxygen Delivery Method Room Air 06/15/23 12:54 Medical Decision Making MDM Narrative Medical decision making narrative: 17-year-old college student with recurrent near syncope episodes, questionable pots disorder. EKGs, workup has been negative to this point. At this point I thinks she is going to get some water, recommend light activity today in fluids and return to class and continue present activities. She should follow up with neurologist and aircraft steel fabricator as planned. Return to ED is problems or concerns. Again there was no concern at this time for cardiac embolic febrile or other issue. Discharge Plan Discharge Clinical Impression: Near syncope Patient Disposition: Home, Self-Care Condition: Improved Additional Instructions: Light activity today, drink lots of fluids, follow-up with your aircraft steel fabricator, neurologist as planned. Activity Level: Light activity Discharge Diet: Regular Prescriptions: No Action fluticasone propionate 50 mcg/actuation spray,suspension 1 spray INTRANASAL DAILY Patient Comments: INSTILL 1 SPRAY INTO AFFECTED NOSTRIL/S DAILY loratadine 10 mg tablet 10 mg PO DAILY Patient Comments: TAKE 1 TABLET (10 MG TOTAL) BY MOUTH DAILY sertraline [Zoloft] 100 mg tablet 100 mg PO Q24H sertraline [Zoloft] 25 mg tablet 25 mg PO DAILY divalproex 500 mg tablet extended release 24 hr 500 mg PO DAILY dextroamphetamine-amphetamine [Adderall XR] 10 mg capsule,extended release 24hr 1 cap PO DAILY prednisone 20 mg tablet 20 mg PO BID Qty: 10 0RF hydroxyzine HCl 25 mg tablet 25 - 50 mg PO DAILY PRN (Reason: anxiety) ondansetron 4 mg tablet,disintegrating 4 mg PO Q8H PRN (Reason: nausea/vomiting) Follow Up/Referrals: Evelia Garcia MD [Primary Care Provider] - Stand Alone Forms: [employer] Info Instructions
[2023-06-15 12:54] VITALS: BP 148/95; PULSE 88; RESP 16; TEMP 36.2; O2SAT 99; BMI 26.6
--- NOTE | 2023-06-15 13:00 | ED.NURSE ---
Water provided, per MD request.
[2023-06-15 13:05] VITALS: BP 148/95; PULSE 88; RESP 16; TEMP 36.2
== END 2023-06-15 13:05 | disposition home or self-care (01) ==
LOC: ED 12:54
PROVIDERS: Emergency Provider Family Medicine; PCP Family Medicine
DX: R55 Syncope and collapse (principal)
CPT/HCPCS: 99283

== ENCOUNTER 2023-09-18 21:53 | Outpatient (CLI) | payer OTHER, SELFPAY | END 2023-09-18 21:54 | disposition home or self-care (01) | LOC: AMB 10-02 12:40 | PROVIDERS: PCP Family Medicine; Visit Provider Family Medicine | DX: R55 Syncope and collapse (principal) | CPT/HCPCS: A0998 ==

== ENCOUNTER 2023-09-19 21:30 | Outpatient (CLI) | payer OTHER, MEDICAID, SELFPAY | END 2023-09-19 21:31 | disposition home or self-care (01) | LOC: AMB 10-05 12:37 | PROVIDERS: PCP Family Medicine; Visit Provider Emergency Medicine | DX: R55 Syncope and collapse (principal); R10.9 Unspecified abdominal pain | CPT/HCPCS: A0425; A0433 ==

== ENCOUNTER 2023-09-19 22:08 | Emergency (ER) | payer OTHER, SELFPAY ==
[2023-09-19] VITALS (12 sets, daily range): BP systolic 109–151; BP diastolic 63–104; PULSE 76–100; RESP 14–16; TEMP 36.7; O2SAT 95–99; BMI 37.3
--- NOTE | 2023-09-19 22:22 | ED_ITS ---
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 No clear findings. She was here in June of 2023, that note is reviewed in its entirety. She had episodes of eye fluttering and unresponsiveness which aborted abruptly with splashing cold water on her face. Symptoms consistent with pseudoseizures. EMS gave her 2 and half of Versed. They noted that she had had about a 2 minute episode staring into space, they gave her Versed, she has was conversant for about 30 seconds and then began staring into space again. They had not given her any additional medication. She has not had any generalized tonic clonic activity. On arrival to the ER she was staring into space with her lips kind of trembling. Color was good, no tonic clonic movement. Her IV became dislodged moving her over to the ER cart, and before giving her any additional medications her spell seem to resolve. Thus far she is not verbalizing anything to me or answering questions though. This seems to be a typical pattern for her. Related Data Home Medications Medication Instructions Recorded Confirmed fluticasone propionate 50 1 spray intranasal DAILY 06/19/22 06/08/23 mcg/actuation nasal spray,suspension loratadine 10 mg tablet 10 mg PO DAILY 06/19/22 06/08/23 sertraline 100 mg tablet (Zoloft) 100 mg PO Q24H 06/19/22 06/08/23 sertraline 25 mg tablet (Zoloft) 25 mg PO DAILY 06/19/22 06/08/23 dextroamphetamine-amphetamine ER 1 cap PO DAILY 12/15/22 06/08/23 10 mg 24hr capsule,extend release (Adderall XR) divalproex 500 mg tablet,extended 500 mg PO DAILY 12/15/22 06/08/23 release 24 hr hydroxyzine HCl 25 mg tablet 25 - 50 mg PO DAILY PRN anxiety 04/13/23 06/08/23 ondansetron 4 mg disintegrating 4 mg PO Q8H PRN nausea/vomiting 04/13/23 06/08/23 tablet albuterol sulfate 90 mcg/actuation inhalation 09/19/23 aerosol inhaler cholecalciferol (vitamin D3) 25 PO 09/19/23 mcg (1,000 unit) tablet hydroxyzine pamoate 25 mg capsule 25 mg PO DAILY PRN 09/19/23 09/19/23 Previous Rx's Medication Instructions Recorded prednisone 20 mg tablet 20 mg PO BID #10 tabs 12/15/22 Allergies Allergy/AdvReac Type Severity Reaction Status Date / Time [place] And Derivatives Allergy Severe Anaphylaxis Verified 09/19/23 22:30 tomato Allergy Intermediate Rash Verified 09/19/23 22:30 adhesive Allergy Unknown Verified 09/19/23 22:30 grapefruit Allergy Unknown Rash Verified 09/19/23 22:30 pineapple Allergy Unknown Rash Verified 09/19/23 22:30 dairy Allergy Intermediate Gi Uncoded 12/15/22 19:11 intolerance Review of Systems Status of ROS: Reports: unobtainable due to medical condition [facility] Medical History Seasonal allergies ?J30.2 - Other seasonal allergic rhinitis (ICD-10) Fainting ?R55 - Syncope and collapse (ICD-10) Anxiety and depression ?F41.9 - Anxiety disorder, unspecified (ICD-10) ?F32.A - Depression, unspecified (ICD-10) Asthma ?J45.909 - Unspecified asthma, uncomplicated (ICD-10) Anemia ?D64.9 - Anemia, unspecified (ICD-10) Surgical History History of wisdom tooth extraction ?K08.409 - Partial loss of teeth, unspecified cause, unspecified class (ICD- 10) Social History Smoking Status: Never smoker Do you use any of these nicotine containing products: Vaping Products Second hand tobacco smoke exposure: No How often do you have a drink containing alcohol: never How often do you have six or more drinks on one occasion: Never AUDIT-C Alcohol total score: 0 Non-prescribed substance use: denies use service: No Exam Narrative: Exam Narrative: Vital signs as noted above. In general, an alert, nontoxic young woman. Head: Normocephalic, atraumatic. Eyes: Pupils are equal reactive. Extraocular movements are full. Conjunctivae are normal. ENT: Mucous membranes are moist. Neck: Supple without lymphadenopathy. Heart: Regular rate and rhythm. No murmur or rub. Lungs: Clear bilaterally. No increased work of breathing, crackles or wheezes. Abdomen: Soft and nontender. No organomegaly. Extremities: Well perfused. No edema. No calf tenderness. Pulses intact. Neurologic: Patient currently alert, looking around the room. Not answering questions at present. Affect: Flat. Skin: Warm and dry. Well perfused. Const: Vital Signs, click to edit/add: Vital Signs - 24 hr 09/19/23 22:18 09/19/23 22:20 09/19/23 22:23 Temperature 98.1 F Pulse Rate 89 88 Pulse Rate [Pulse Oximeter] 85 Respiratory Rate 14 Blood Pressure 138/93 H Blood Pressure [Ri ght Upper Arm] 151/104 H Pulse Oximetry 95 96 99 Oxygen Delivery Me thod Room Air 09/19/23 22:30 09/19/23 22:32 09/19/23 22:45 Temperature Pulse Rate 97 92 88 Pulse Rate [Pulse Oximeter] Respiratory Rate Blood Pressure 135/104 H Blood Pressure [Ri ght Upper Arm] Pulse Oximetry 97 98 99 Oxygen Delivery Me thod 09/19/23 22:46 09/19/23 22:50 09/19/23 23:11 Temperature Pulse Rate 100 99 Pulse Rate [Pulse Oximeter] Respiratory Rate 16 16 16 Blood Pressure 143/89 H 129/87 135/81 Blood Pressure [Ri ght Upper Arm] Pulse Oximetry 97 96 98 Oxygen Delivery Me thod 09/19/23 23:17 09/19/23 23:31 09/19/23 23:46 Temperature Pulse Rate 82 76 81 Pulse Rate [Pulse Oximeter] Respiratory Rate 16 16 16 Blood Pressure 129/82 125/78 109/63 Blood Pressure [Ri ght Upper Arm] Pulse Oximetry 97 97 95 Oxygen Delivery Me thod Documenting provider has reviewed patient's vital signs: yes Course Course ED Course: Given patient's history, my suspicion for true neurologic event such as seizure is quite low. She has a pattern of similar behaviors which have not been documented to be seizures, and her evaluation for seizure has been negative, including EEG and MRI. Workup for POTS has apparently been unrevealing as well. She is maintained on Adderall and sertraline, she does take divalproex as of April of 2023, unclear whether she is still on this medication and unclear whether it is being used to treat seizure-like activity. Dr. Goodrich spoke to her at length suggesting mental health evaluation last time she was here and she refused. She did not receive further medications in the ER. She was interactive with the nurses initially though not with me. After a bit she was sitting up and using her phone and at that point she was willing to talk to me. She talks about herself in a somewhat self-deprecating manner, stating that she is lots of fun as a patient, and then clarifying that she is being sarcastic. She is a sophomore and says that school is going very well, she is particularly enjoying a class on [employer]. She tells me that her doctors in [place] are very close to making a diagnosis, and have narrowed it to 4 things. She has a video appointment upcoming with her neurologist in [place] apparently. Evaluation is unremarkable here. Labs including CBC, BMP, LFTs are normal. Drug screen is positive for opiates, I believe the medics did give her some morphine. Interestingly, there are no benzos in her drug screen, despite having received Versed in the rig. Alcohol level is 0. She is at baseline, exam and workup are unremarkable. Jakub at [facility] requested an update, which was provided after the patient agreed. Plan will be to discharge back to school, outpatient follow-up as planned. Vital Signs Vital signs: Initial Vital Signs Pulse Rate 89 09/19/23 22:18 Pulse Oximetry 95 09/19/23 22:18 Vital Signs Pulse Rate 89 09/19/23 22:18 Pulse Oximetry 95 09/19/23 22:18 Temperature 98.1 F 09/19/23 22:23 Pulse Rate 81 09/19/23 23:46 Respiratory Rate 16 09/19/23 23:46 Blood Pressure 109/63 02/19/24 23:46 Pulse Oximetry 95 09/19/23 23:46 Oxygen Delivery Method Room Air 09/19/23 22:23 Medications Administered Medications: Discontinued Medications Generic Name Dose Route Start Last Admin Trade Name Val PRN Reason Stop Dose Admin Ondansetron HCl 4 mg 09/19/23 22:30 09/19/23 22:34 Ondansetron 2 Mg/Ml Inj IVP 09/19/23 22:31 4 mg ONCE ONE Administration Medical Decision Making Lab Data Labs: Lab Results 09/19/23 09/19/23 09/19/23 Range/Units 22:20 23:00 23:00 WBC 5.14 (4.50-11.00) K/uL RBC 3.93 L (4.00-5.20) m/uL Hgb 11.4 L (12.0-16.0) gm/dL Hct 36.7 (33.0-51.0) % MCV 93 (80-100) fL MCH 29 (26-34) pg MCHC 31 L (32-36) gm/dL RDW Coeff of Preeti 11.9 (11.5-15.5) % Plt Count 277 (140-440) K/uL Neut % (Auto) 43.8 (42.0-72.0) % Lymph % (Auto) 44.9 H (20-44) % [place] % (Auto) 9.5 (0.0-11.0) % Eos % (Auto) 1.4 (0.0-7.0) % Baso % (Auto) 0.4 (0.0-3.0) % Neut # (Auto) 2.25 (1.7-7.0) K/uL Lymph # (Auto) 2.30 (0.90-2.90) K/uL [place] # (Auto) 0.50 (0.00-0.90) K/UL Eos # (Auto) 0.07 (0.00-0.50) K/uL Baso # (Auto) 0.02 (0.00-0.30) K/uL Abs Immat Gran (auto) 0.00 (0.00-0.30) K/uL Imm/Tot Granulo (auto) 0.0 % Sodium 138 (135-149) mmol/L Potassium 3.5 L (3.6-5.1) mmol/L Chloride 106 (96-114) mmol/L Carbon Dioxide 24 (20-32) mmol/L Anion Gap 8 (7-15) mEq/L BUN 12 (5-24) mg/dL Creatinine 0.6 (0.5-1.5) mg/dL Estimated Creat Clear 150.88 Estimated GFR 132 ml/min Glucose 96 (60-115) mg/dL Calcium 9.2 (8.4-10.6) mg/dL Magnesium 1.9 (1.5-2.6) mg/dL Total Bilirubin 0.3 (0.1-1.5) mg/dL Direct Bilirubin 0.0 (0.0-0.5) mg/dL AST 34 (12-35) U/L ALT 30 (4-35) U/L Alkaline Phosphatase 73 (40-150) U/L Total Protein 8.1 (6.0-8.3) g/dL Albumin 4.7 (3.3-5.0) g/dL Urine Color Yellow Cancelled (Yellow) Urine Appearance Slightly Cloudy A (Clear) Urine pH (5.0-8.5) Ur Specific [place] (1.000-1.030) Urine Protein (Negative) Urine Glucose (UA) (Negative) Urine Ketones (Negative) Urine Blood (Negative) Urine Nitrite (Negative) Urine Bilirubin (Negative) Urine Urobilinogen (0.2-1.0) Ur Leukocyte Esterase (Negative) Urine RBC (0-2) Urine WBC (0-5) Urine WBC Clumps Ur Squamous Epith Cells (None-Few) [place] Biurate Crystals Calcium Carbonate Cryst Calcium Phosphate Cryst Calcium Oxalate Crystal Cystine Crystals Uric Acid Crystals Triple Phos Crystals Sulfur Crystals Cholesterol Crystals Tyrosine Crystals Hippuric Acid Crystals Amorphous Sediment (None) Other Sediment Urine Bacteria (None) Fatty Casts Hyaline Casts Fine Granular Casts Coarse Granular Casts Waxy Casts RBC Casts WBC Casts Other Casts Urine Starch Urine Mucus Urine Trichomonas Urine Yeast Urine HCG, Qual (Negative) Urine Opiates Screen (Negative) Ur Oxycodone Screen (Negative) Urine Methadone Screen (Negative) Ur Barbiturates Screen (Negative) U Tricyclic Antidepress (Negative) Ur Phencyclidine Scrn (Negative) Ur Amphetamines Screen (Negative) U Methamphetamines Scrn (Negative) U Benzodiazepines Scrn (Negative) Urine Cocaine Screen (Negative) U Marijuana (THC) Screen (Negative) Ur Drug Screen Comment Ethyl Alcohol < 0.01 L (0.01-0.03) % 09/19/23 09/19/23 09/19/23 Range/Units 23:00 23:00 23:00 WBC (4.50-11.00) K/uL RBC (4.00-5.20) m/uL Hgb (12.0-16.0) gm/dL Hct (33.0-51.0) % MCV (80-100) fL MCH (26-34) pg MCHC (32-36) gm/dL RDW Coeff of Preeti (11.5-15.5) % Plt Count (140-440) K/uL Neut % (Auto) (42.0-72.0) % Lymph % (Auto) (20-44) % [place] % (Auto) (0.0-11.0) % Eos % (Auto) (0.0-7.0) % Baso % (Auto) (0.0-3.0) % Neut # (Auto) (1.7-7.0) K/uL Lymph # (Auto) (0.90-2.90) K/uL [place] # (Auto) (0.00-0.90) K/UL Eos # (Auto) (0.00-0.50) K/uL Baso # (Auto) (0.00-0.30) K/uL Abs Immat Gran (auto) (0.00-0.30) K/uL Imm/Tot Granulo (auto) % Sodium (135-149) mmol/L Potassium (3.6-5.1) mmol/L Chloride (96-114) mmol/L Carbon Dioxide (20-32) mmol/L Anion Gap (7-15) mEq/L BUN (5-24) mg/dL Creatinine (0.5-1.5) mg/dL Estimated Creat Clear Estimated GFR ml/min Glucose (60-115) mg/dL Calcium (8.4-10.6) mg/dL Magnesium (1.5-2.6) mg/dL Total Bilirubin (0.1-1.5) mg/dL Direct Bilirubin (0.0-0.5) mg/dL AST (12-35) U/L ALT (4-35) U/L Alkaline Phosphatase (40-150) U/L Total Protein (6.0-8.3) g/dL Albumin (3.3-5.0) g/dL Urine Color (Yellow) Urine Appearance Cancelled (Clear) Urine pH 6.5 Cancelled (5.0-8.5) Ur Specific [place] 1.025 Cancelled (1.000-1.030) Urine Protein Negative (Negative) Urine Glucose (UA) (Negative) Urine Ketones (Negative) Urine Blood (Negative) Urine Nitrite (Negative) Urine Bilirubin (Negative) Urine Urobilinogen (0.2-1.0) Ur Leukocyte Esterase (Negative) Urine RBC (0-2) Urine WBC (0-5) Urine WBC Clumps Ur Squamous Epith Cells (None-Few) [place] Biurate Crystals Calcium Carbonate Cryst Calcium Phosphate Cryst Calcium Oxalate Crystal Cystine Crystals Uric Acid Crystals Triple Phos Crystals Sulfur Crystals Cholesterol Crystals Tyrosine Crystals Hippuric Acid Crystals Amorphous Sediment (None) Other Sediment Urine Bacteria (None) Fatty Casts Hyaline Casts Fine Granular Casts Coarse Granular Casts Waxy Casts RBC Casts WBC Casts Other Casts Urine Starch Urine Mucus Urine Trichomonas Urine Yeast Urine HCG, Qual (Negative) Urine Opiates Screen (Negative) Ur Oxycodone Screen (Negative) Urine Methadone Screen (Negative) Ur Barbiturates Screen (Negative) U Tricyclic Antidepress (Negative) Ur Phencyclidine Scrn (Negative) Ur Amphetamines Screen (Negative) U Methamphetamines Scrn (Negative) U Benzodiazepines Scrn (Negative) Urine Cocaine Screen (Negative) U Marijuana (THC) Screen (Negative) Ur Drug Screen Comment Ethyl Alcohol (0.01-0.03) % 09/19/23 09/19/23 09/19/23 Range/Units 23:00 23:00 23:00 WBC (4.50-11.00) K/uL RBC (4.00-5.20) m/uL Hgb (12.0-16.0) gm/dL Hct (33.0-51.0) % MCV (80-100) fL MCH (26-34) pg MCHC (32-36) gm/dL RDW Coeff of Preeti (11.5-15.5) % Plt Count (140-440) K/uL Neut % (Auto) (42.0-72.0) % Lymph % (Auto) (20-44) % [place] % (Auto) (0.0-11.0) % Eos % (Auto) (0.0-7.0) % Baso % (Auto) (0.0-3.0) % Neut # (Auto) (1.7-7.0) K/uL Lymph # (Auto) (0.90-2.90) K/uL [place] # (Auto) (0.00-0.90) K/UL Eos # (Auto) (0.00-0.50) K/uL Baso # (Auto) (0.00-0.30) K/uL Abs Immat Gran (auto) (0.00-0.30) K/uL Imm/Tot Granulo (auto) % Sodium (135-149) mmol/L Potassium (3.6-5.1) mmol/L Chloride (96-114) mmol/L Carbon Dioxide (20-32) mmol/L Anion Gap (7-15) mEq/L BUN (5-24) mg/dL Creatinine (0.5-1.5) mg/dL Estimated Creat Clear Estimated GFR ml/min Glucose (60-115) mg/dL Calcium (8.4-10.6) mg/dL Magnesium (1.5-2.6) mg/dL Total Bilirubin (0.1-1.5) mg/dL Direct Bilirubin (0.0-0.5) mg/dL AST (12-35) U/L ALT (4-35) U/L Alkaline Phosphatase (40-150) U/L Total Protein (6.0-8.3) g/dL Albumin (3.3-5.0) g/dL Urine Color (Yellow) Urine Appearance (Clear) Urine pH (5.0-8.5) Ur Specific [place] (1.000-1.030) Urine Protein Cancelled (Negative) Urine Glucose (UA) Negative Cancelled (Negative) Urine Ketones Negative Cancelled (Negative) Urine Blood 1+ A (Negative) Urine Nitrite (Negative) Urine Bilirubin (Negative) Urine Urobilinogen (0.2-1.0) Ur Leukocyte Esterase (Negative) Urine RBC (0-2) Urine WBC (0-5) Urine WBC Clumps Ur Squamous Epith Cells (None-Few) [place] Biurate Crystals Calcium Carbonate Cryst Calcium Phosphate Cryst Calcium Oxalate Crystal Cystine Crystals Uric Acid Crystals Triple Phos Crystals Sulfur Crystals Cholesterol Crystals Tyrosine Crystals Hippuric Acid Crystals Amorphous Sediment (None) Other Sediment Urine Bacteria (None) Fatty Casts Hyaline Casts Fine Granular Casts Coarse Granular Casts Waxy Casts RBC Casts WBC Casts Other Casts Urine Starch Urine Mucus Urine Trichomonas Urine Yeast Urine HCG, Qual (Negative) Urine Opiates Screen (Negative) Ur Oxycodone Screen (Negative) Urine Methadone Screen (Negative) Ur Barbiturates Screen (Negative) U Tricyclic Antidepress (Negative) Ur Phencyclidine Scrn (Negative) Ur Amphetamines Screen (Negative) U Methamphetamines Scrn (Negative) U Benzodiazepines Scrn (Negative) Urine Cocaine Screen (Negative) U Marijuana (THC) Screen (Negative) Ur Drug Screen Comment Ethyl Alcohol (0.01-0.03) % 09/19/23 09/19/23 09/19/23 Range/Units 23:00 23:00 23:00 WBC (4.50-11.00) K/uL RBC (4.00-5.20) m/uL Hgb (12.0-16.0) gm/dL Hct (33.0-51.0) % MCV (80-100) fL MCH (26-34) pg MCHC (32-36) gm/dL RDW Coeff of Preeti (11.5-15.5) % Plt Count (140-440) K/uL Neut % (Auto) (42.0-72.0) % Lymph % (Auto) (20-44) % [place] % (Auto) (0.0-11.0) % Eos % (Auto) (0.0-7.0) % Baso % (Auto) (0.0-3.0) % Neut # (Auto) (1.7-7.0) K/uL Lymph # (Auto) (0.90-2.90) K/uL [place] # (Auto) (0.00-0.90) K/UL Eos # (Auto) (0.00-0.50) K/uL Baso # (Auto) (0.00-0.30) K/uL Abs Immat Gran (auto) (0.00-0.30) K/uL Imm/Tot Granulo (auto) % Sodium (135-149) mmol/L Potassium (3.6-5.1) mmol/L Chloride (96-114) mmol/L Carbon Dioxide (20-32) mmol/L Anion Gap (7-15) mEq/L BUN (5-24) mg/dL Creatinine (0.5-1.5) mg/dL Estimated Creat Clear Estimated GFR ml/min Glucose (60-115) mg/dL Calcium (8.4-10.6) mg/dL Magnesium (1.5-2.6) mg/dL Total Bilirubin (0.1-1.5) mg/dL Direct Bilirubin (0.0-0.5) mg/dL AST (12-35) U/L ALT (4-35) U/L Alkaline Phosphatase (40-150) U/L Total Protein (6.0-8.3) g/dL Albumin (3.3-5.0) g/dL Urine Color (Yellow) Urine Appearance (Clear) Urine pH (5.0-8.5) Ur Specific [place] (1.000-1.030) Urine Protein (Negative) Urine Glucose (UA) (Negative) Urine Ketones (Negative) Urine Blood Cancelled (Negative) Urine Nitrite Negative Cancelled (Negative) Urine Bilirubin Negative Cancelled (Negative) Urine Urobilinogen 0.2 (0.2-1.0) Ur Leukocyte Esterase (Negative) Urine RBC (0-2) Urine WBC (0-5) Urine WBC Clumps Ur Squamous Epith Cells (None-Few) [place] Biurate Crystals Calcium Carbonate Cryst Calcium Phosphate Cryst Calcium Oxalate Crystal Cystine Crystals Uric Acid Crystals Triple Phos Crystals Sulfur Crystals Cholesterol Crystals Tyrosine Crystals Hippuric Acid Crystals Amorphous Sediment (None) Other Sediment Urine Bacteria (None) Fatty Casts Hyaline Casts Fine Granular Casts Coarse Granular Casts Waxy Casts RBC Casts WBC Casts Other Casts Urine Starch Urine Mucus Urine Trichomonas Urine Yeast Urine HCG, Qual (Negative) Urine Opiates Screen (Negative) Ur Oxycodone Screen (Negative) Urine Methadone Screen (Negative) Ur Barbiturates Screen (Negative) U Tricyclic Antidepress (Negative) Ur Phencyclidine Scrn (Negative) Ur Amphetamines Screen (Negative) U Methamphetamines Scrn (Negative) U Benzodiazepines Scrn (Negative) Urine Cocaine Screen (Negative) U Marijuana (THC) Screen (Negative) Ur Drug Screen Comment Ethyl Alcohol (0.01-0.03) % 09/19/23 09/19/23 09/19/23 Range/Units 23:00 23:00 23:00 WBC (4.50-11.00) K/uL RBC (4.00-5.20) m/uL Hgb (12.0-16.0) gm/dL Hct (33.0-51.0) % MCV (80-100) fL MCH (26-34) pg MCHC (32-36) gm/dL RDW Coeff of Preeti (11.5-15.5) % Plt Count (140-440) K/uL Neut % (Auto) (42.0-72.0) % Lymph % (Auto) (20-44) % [place] % (Auto) (0.0-11.0) % Eos % (Auto) (0.0-7.0) % Baso % (Auto) (0.0-3.0) % Neut # (Auto) (1.7-7.0) K/uL Lymph # (Auto) (0.90-2.90) K/uL [place] # (Auto) (0.00-0.90) K/UL Eos # (Auto) (0.00-0.50) K/uL Baso # (Auto) (0.00-0.30) K/uL Abs Immat Gran (auto) (0.00-0.30) K/uL Imm/Tot Granulo (auto) % Sodium (135-149) mmol/L Potassium (3.6-5.1) mmol/L Chloride (96-114) mmol/L Carbon Dioxide (20-32) mmol/L Anion Gap (7-15) mEq/L BUN (5-24) mg/dL Creatinine (0.5-1.5) mg/dL Estimated Creat Clear Estimated GFR ml/min Glucose (60-115) mg/dL Calcium (8.4-10.6) mg/dL Magnesium (1.5-2.6) mg/dL Total Bilirubin (0.1-1.5) mg/dL Direct Bilirubin (0.0-0.5) mg/dL AST (12-35) U/L ALT (4-35) U/L Alkaline Phosphatase (40-150) U/L Total Protein (6.0-8.3) g/dL Albumin (3.3-5.0) g/dL Urine Color (Yellow) Urine Appearance (Clear) Urine pH (5.0-8.5) Ur Specific [place] (1.000-1.030) Urine Protein (Negative) Urine Glucose (UA) (Negative) Urine Ketones (Negative) Urine Blood (Negative) Urine Nitrite (Negative) Urine Bilirubin (Negative) Urine Urobilinogen Cancelled (0.2-1.0) Ur Leukocyte Esterase Trace A Cancelled (Negative) Urine RBC 0-2 Cancelled (0-2) Urine WBC 2-5 (0-5) Urine WBC Clumps Ur Squamous Epith Cells (None-Few) [place] Biurate Crystals Calcium Carbonate Cryst Calcium Phosphate Cryst Calcium Oxalate Crystal Cystine Crystals Uric Acid Crystals Triple Phos Crystals Sulfur Crystals Cholesterol Crystals Tyrosine Crystals Hippuric Acid Crystals Amorphous Sediment (None) Other Sediment Urine Bacteria (None) Fatty Casts Hyaline Casts Fine Granular Casts Coarse Granular Casts Waxy Casts RBC Casts WBC Casts Other Casts Urine Starch Urine Mucus Urine Trichomonas Urine Yeast Urine HCG, Qual (Negative) Urine Opiates Screen (Negative) Ur Oxycodone Screen (Negative) Urine Methadone Screen (Negative) Ur Barbiturates Screen (Negative) U Tricyclic Antidepress (Negative) Ur Phencyclidine Scrn (Negative) Ur Amphetamines Screen (Negative) U Methamphetamines Scrn (Negative) U Benzodiazepines Scrn (Negative) Urine Cocaine Screen (Negative) U Marijuana (THC) Screen (Negative) Ur Drug Screen Comment Ethyl Alcohol (0.01-0.03) % 09/19/23 09/19/23 09/19/23 Range/Units 23:00 23:00 23:00 WBC (4.50-11.00) K/uL RBC (4.00-5.20) m/uL Hgb (12.0-16.0) gm/dL Hct (33.0-51.0) % MCV (80-100) fL MCH (26-34) pg MCHC (32-36) gm/dL RDW Coeff of Preeti (11.5-15.5) % Plt Count (140-440) K/uL Neut % (Auto) (42.0-72.0) % Lymph % (Auto) (20-44) % [place] % (Auto) (0.0-11.0) % Eos % (Auto) (0.0-7.0) % Baso % (Auto) (0.0-3.0) % Neut # (Auto) (1.7-7.0) K/uL Lymph # (Auto) (0.90-2.90) K/uL [place] # (Auto) (0.00-0.90) K/UL Eos # (Auto) (0.00-0.50) K/uL Baso # (Auto) (0.00-0.30) K/uL Abs Immat Gran (auto) (0.00-0.30) K/uL Imm/Tot Granulo (auto) % Sodium (135-149) mmol/L Potassium (3.6-5.1) mmol/L Chloride (96-114) mmol/L Carbon Dioxide (20-32) mmol/L Anion Gap (7-15) mEq/L BUN (5-24) mg/dL Creatinine (0.5-1.5) mg/dL Estimated Creat Clear Estimated GFR ml/min Glucose (60-115) mg/dL Calcium (8.4-10.6) mg/dL Magnesium (1.5-2.6) mg/dL Total Bilirubin (0.1-1.5) mg/dL Direct Bilirubin (0.0-0.5) mg/dL AST (12-35) U/L ALT (4-35) U/L Alkaline Phosphatase (40-150) U/L Total Protein (6.0-8.3) g/dL Albumin (3.3-5.0) g/dL Urine Color (Yellow) Urine Appearance (Clear) Urine pH (5.0-8.5) Ur Specific [place] (1.000-1.030) Urine Protein (Negative) Urine Glucose (UA) (Negative) Urine Ketones (Negative) Urine Blood (Negative) Urine Nitrite (Negative) Urine Bilirubin (Negative) Urine Urobilinogen (0.2-1.0) Ur Leukocyte Esterase (Negative) Urine RBC (0-2) Urine WBC Cancelled (0-5) Urine WBC Clumps Cancelled Ur Squamous Epith Cells Moderate A Cancelled (None-Few) [place] Biurate Crystals Cancelled Calcium Carbonate Cryst Cancelled Calcium Phosphate Cryst Cancelled Calcium Oxalate Crystal Cancelled Cystine Crystals Cancelled Uric Acid Crystals Cancelled Triple Phos Crystals Cancelled Sulfur Crystals Cancelled Cholesterol Crystals Cancelled Tyrosine Crystals Cancelled Hippuric Acid Crystals Cancelled Amorphous Sediment Few A Cancelled (None) Other Sediment Cancelled Urine Bacteria Moderate A (None) Fatty Casts Hyaline Casts Fine Granular Casts Coarse Granular Casts Waxy Casts RBC Casts WBC Casts Other Casts Urine Starch Urine Mucus Urine Trichomonas Urine Yeast Urine HCG, Qual (Negative) Urine Opiates Screen (Negative) Ur Oxycodone Screen (Negative) Urine Methadone Screen (Negative) Ur Barbiturates Screen (Negative) U Tricyclic Antidepress (Negative) Ur Phencyclidine Scrn (Negative) Ur Amphetamines Screen (Negative) U Methamphetamines Scrn (Negative) U Benzodiazepines Scrn (Negative) Urine Cocaine Screen (Negative) U Marijuana (THC) Screen (Negative) Ur Drug Screen Comment Ethyl Alcohol (0.01-0.03) % 09/19/23 Range/Units 23:00 WBC (4.50-11.00) K/uL RBC (4.00-5.20) m/uL Hgb (12.0-16.0) gm/dL Hct (33.0-51.0) % MCV (80-100) fL MCH (26-34) pg MCHC (32-36) gm/dL RDW Coeff of Preeti (11.5-15.5) % Plt Count (140-440) K/uL Neut % (Auto) (42.0-72.0) % Lymph % (Auto) (20-44) % [place] % (Auto) (0.0-11.0) % Eos % (Auto) (0.0-7.0) % Baso % (Auto) (0.0-3.0) % Neut # (Auto) (1.7-7.0) K/uL Lymph # (Auto) (0.90-2.90) K/uL [place] # (Auto) (0.00-0.90) K/UL Eos # (Auto) (0.00-0.50) K/uL Baso # (Auto) (0.00-0.30) K/uL Abs Immat Gran (auto) (0.00-0.30) K/uL Imm/Tot Granulo (auto) % Sodium (135-149) mmol/L Potassium (3.6-5.1) mmol/L Chloride (96-114) mmol/L Carbon Dioxide (20-32) mmol/L Anion Gap (7-15) mEq/L BUN (5-24) mg/dL Creatinine (0.5-1.5) mg/dL Estimated Creat Clear Estimated GFR ml/min Glucose (60-115) mg/dL Calcium (8.4-10.6) mg/dL Magnesium (1.5-2.6) mg/dL Total Bilirubin (0.1-1.5) mg/dL Direct Bilirubin (0.0-0.5) mg/dL AST (12-35) U/L ALT (4-35) U/L Alkaline Phosphatase (40-150) U/L Total Protein (6.0-8.3) g/dL Albumin (3.3-5.0) g/dL Urine Color (Yellow) Urine Appearance (Clear) Urine pH (5.0-8.5) Ur Specific [place] (1.000-1.030) Urine Protein (Negative) Urine Glucose (UA) (Negative) Urine Ketones (Negative) Urine Blood (Negative) Urine Nitrite (Negative) Urine Bilirubin (Negative) Urine Urobilinogen (0.2-1.0) Ur Leukocyte Esterase (Negative) Urine RBC (0-2) Urine WBC (0-5) Urine WBC Clumps Ur Squamous Epith Cells (None-Few) [place] Biurate Crystals Calcium Carbonate Cryst Calcium Phosphate Cryst Calcium Oxalate Crystal Cystine Crystals Uric Acid Crystals Triple Phos Crystals Sulfur Crystals Cholesterol Crystals Tyrosine Crystals Hippuric Acid Crystals Amorphous Sediment (None) Other Sediment Urine Bacteria Cancelled (None) Fatty Casts Cancelled Hyaline Casts Cancelled Fine Granular Casts Cancelled Coarse Granular Casts Cancelled Waxy Casts Cancelled RBC Casts Cancelled WBC Casts Cancelled Other Casts Cancelled Urine Starch Cancelled Urine Mucus Cancelled Urine Trichomonas Cancelled Urine Yeast Cancelled Urine HCG, Qual Negative (Negative) Urine Opiates Screen POSITIVE A (Negative) Ur Oxycodone Screen Negative (Negative) Urine Methadone Screen Negative (Negative) Ur Barbiturates Screen Negative (Negative) U Tricyclic Antidepress Negative (Negative) Ur Phencyclidine Scrn Negative (Negative) Ur Amphetamines Screen POSITIVE A (Negative) U Methamphetamines Scrn Negative (Negative) U Benzodiazepines Scrn Negative (Negative) Urine Cocaine Screen Negative (Negative) U Marijuana (THC) Screen Negative (Negative) Ur Drug Screen Comment See Note Ethyl Alcohol (0.01-0.03) % Discharge Plan Discharge Clinical Impression: Unresponsive episode Patient Disposition: Home, Self-Care Condition: Improved Additional Instructions: Continue to follow-up with your outpatient providers. Return as needed. Prescriptions: No Action fluticasone propionate 50 mcg/actuation spray,suspension 1 spray INTRANASAL DAILY Patient Comments: INSTILL 1 SPRAY INTO AFFECTED NOSTRIL/S DAILY loratadine 10 mg tablet 10 mg PO DAILY Patient Comments: TAKE 1 TABLET (10 MG TOTAL) BY MOUTH DAILY sertraline [Zoloft] 100 mg tablet 100 mg PO Q24H sertraline [Zoloft] 25 mg tablet 25 mg PO DAILY albuterol sulfate 90 mcg/actuation HFA aerosol inhaler inhalation hydroxyzine pamoate 25 mg capsule 25 mg PO DAILY PRN cholecalciferol (vitamin D3) 25 mcg (1,000 unit) tablet PO divalproex 500 mg tablet extended release 24 hr 500 mg PO DAILY dextroamphetamine-amphetamine [Adderall XR] 10 mg capsule,extended release 24hr 1 cap PO DAILY prednisone 20 mg tablet 20 mg PO BID Qty: 10 0RF hydroxyzine HCl 25 mg tablet 25 - 50 mg PO DAILY PRN (Reason: anxiety) ondansetron 4 mg tablet,disintegrating 4 mg PO Q8H PRN (Reason: nausea/vomiting) Follow Up/Referrals: Evelia Garcia MD [Primary Care Provider] - Stand Alone Forms: [facility] Info Instructions
--- OUTSIDE RECORDS SUMMARY | 2023-09-19 22:23 | XMS_ITS | Clinical Summary ---
Author Name Unknown Organization [facility] Address [address] [place] [id number] Care Team Providers Care Tank Wagon Driver Name Role Phone None Reported, Pcp Primary Care Provider Unavail able Source Comments Patient records contain information from all sites at [facility]. For routine questions regarding patient records, call [phone] during business hours, M-F 8:00 AM - 5:00 PM Central Time. Record requests for emergency care only can be directed to [phone] at any time.[facility] Allergies Active Allergy Reactions Criticality Noted Date Comments Grapefruit Rash,GI intolerance Medium 04/20/2022 Milk GI intolerance Medium 11/29/2019 Pineapple Rash Medium 07/05/2022 Medications Medication Sig Dispensed Refills Start Date End Date Status diphenhydrAMINE (BENADRYL) 25 mg capsule Take 50 mg by mouth every 6 (six) hours as needed for itching. 0 02/24/2022 Active fluticasone propionate (FLONASE) 50 mcg/actuation nasal spray Administer 1 spray into each nostril daily. 0 04/12/2022 Active ibuprofen (ADVIL,MOTRIN) 400 mg tablet Take 400 mg by mouth every 8 (eight) hours as needed. 0 09/04/2019 Active levonorgestreL-ethiny l estrad (AVIANE,ALESSE,LESSIN A) 0.1-20 mg-mcg per tablet Take 1 tablet by mouth daily. 0 05/01/2019 Active melatonin 5 mg tablet Take 5 mg by mouth at bedtime as needed. 0 Active divalproex (DEPAKOTE ER) 500 mg 24 hr tablet Take 1 tablet (500 mg total) by mouth daily. 30 tablet 0 08/22/2022 Active ondansetron ODT (ZOFRAN-ODT) 4 mg disintegrating tablet Dissolve 1 tablet (4 mg total) in the mouth every 6 (six) hours as needed for nausea or vomiting. 10 tablet 0 08/22/2022 Active sertraline (ZOLOFT) 100 mg tablet Take 1 tablet (100 mg total) by mouth at bedtime. 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 Other Iron Deficiency Anemias 04/15/2019 Resolved Problems Problem Noted Date Diagnosed Date Resolved Date Suicide Ideation 08/17/2022 08/22/2022 Family History * Patient is adopted Medical History Relation Name Comments Schizophrenia Father Substance dependence Father Heroin Schizophrenia Mother Substance dependence Mother Heroin Relation Name Status Comments Father Mother Social History Tobacco Use Types Packs/Day Years Used Date Smoking Tobacco: Never Tobacco Cessation:Counseling Given: Not Answered Alcohol Use Standard Drinks/Week Comments Never 0 (1 standard drink = 0.6 oz pur e alcohol) PHQ-2 Answer Date Recorded PHQ-2 Score 4 08/17/2022 Depression Answer Date Recor ded PHQ-9 Total Score (max 27) 14 08/17 Nutrition Answer Date Recorded Nutrition: EVOO Fat Source Unknown 08/17 Nutrition: Servings of Fruits/Vegetables per Day Not on file 08/17/2022 Dental Answer Date Recorded Dental: Regular Dentist Unknown 08/17/19 Sex and Gender Information Value Date Recorded Sex Assigned at Not on file Gender Identity Not on file Sexual Orientation Not on file Last Filed Vital Signs Vital Sign Reading Time Taken Comments Blood Pressure 107/55 08/22/2022 6:45 AM BOX TRUCK WASHER Pulse 58 08/22/2022 6:45 AM BOX TRUCK WASHER Temperature 36.3 ??C (97.3 ??F) 08/22/2022 6:45 AM CS T Respiratory Rate 16 08/22/2022 6:45 AM BOX TRUCK WASHER Oxygen Saturation 99% 08/22/2022 6:45 AM BOX TRUCK WASHER Inhaled Oxygen Concentration - - Weight 87.1 kg (192 lb) 08/17/2022 3:00 AM BOX TRUCK WASHER Height 172.7 cm (5' 8) 08/17/2022 3:00 AM BOX TRUCK WASHER Body Mass Index 29.19 08/17/2022 3:00 AM BOX TRUCK WASHER Plan of Treatment Health Maintenance Due Date Last Done Comments Chlamydia and Gonorrhea Screening 2003 HIV Screening 2003 Hearing Screening during Well Child Visit 2003 Hepatitis C Screening 2003 Tobacco Cessation counseling 2003 1 week Well Child Check-Up 2003 1 month Well Child Check-Up 2003 2 month Well Child Check-Up 2003 4 month Well Child Check-Up 2003 6 month Well Child Check-Up 02/10/2004 9 month Well Child Check-Up 05/12/2004 12 month Well Child Check-Up 08/12/2004 15 month Well Child Check-Up 11/10/2004 Hepatitis B Vaccines (2 of 3 - 3-dose series) 12/09/2004 11/11/2004 18 month Well Child Check-Up 02/09/2005 2 year Well Child Check-Up 08/12/2005 30 month Well Child Check-Up 02/09/2006 3 year Well Child Check-Up 08/12/2006 Well Child Check-Up Completed in Past Year 08/12/2006 4 year Well Child Check-Up 08/12/2007 5 year Well Child Check-Up 08/12/2008 6 year Well Child Check-Up 08/12/2009 7 year Well Child Check-Up 08/12/2010 8 year Well Child Check-Up 08/12/2011 9 year Well Child Check-Up 08/12/2012 10 year Well Child Check-Up 08/12/2013 11 year Well Child Check-Up 08/12/2014 12 year Well Child Check-Up 08/12/2015 13 year Well Child Check-Up 08/12/2016 14 year Well Child Check-Up 08/12/2017 Vision Screening during Well Child Visit 2017 15 year Well Child Check-Up 08/12/2018 16 year Well Child Check-Up 08/12/2019 17 year Well Child Check-Up 08/12/2020 18 year Well Child Check-Up 08/12/2021 19 year Well Child Check-Up 08/12/2022 Influenza Vaccine (#1) 2023 2, 06/05/2019, 09/06/2017, Additional history exists Depression Screening (Annual PHQ-2) 08/01/2023 20 year Well Child Check-Up 08/12/2023 Well Child Check-Up ([facility]) 08/12/2023 DTaP,Tdap,and Td Vaccines (7 - Td or Tdap) 09/25/2024 09/25/2014, 04/24/2008, 04/07/2006, Additional history exists Pneumococcal vaccine (0-64 years) Aged Out 07/12/2005, 03/30/2005, 09/08/2004, Additional history exists No longer eligible based on patient's age to complete this topic HPV Vaccines Completed 05/08/2015, 03/2015, 09/25/2014 Meningococcal Vaccine Completed 04/16/2020, 015 Anemia/Iron Deficiency Screening During Well Child Visit (if High Risk Menstruating Female) Completed 05/11/2023, 04/20/2023, 08/18/2022, Additional history exists COVID-19 Vaccine Completed 05/11/2023, , 08/26/2021, Additional history exists Advance Directives For more information, please contact: [phone] Latest Code Status on File Code Status Date Activated Date Inactivated Comments Full Code 08/17/2022 3:26 AM 08/22/2022 11:38 AM Question Answer Comments Full Code: Not Discussed Due to: Not medically appropriate Care Teams Tank Wagon Driver Relationship Specialty Start Date End Date None Reported, Pcp PCP - General Family Medicine 08/17/22
--- OUTSIDE RECORDS SUMMARY | 2023-09-19 22:24 | XMS_ITS ---
Author Name Unknown Organization [facility] Address [address] [place] [address] Care Team Providers Care Trouble Locater Name Role Phone Unavailable Unavailable Unavailable Surgery Details Not on file Complications Check Surgery Details section. Procedure Estimated Blood Loss Check Surgery Details section. Procedure Findings Check Surgery Details section. Procedure Specimens Taken Check Surgery Details section.
--- OUTSIDE RECORDS SUMMARY | 2023-09-19 22:24 | XMS_ITS | Clinical Summary ---
Author Name Unknown Organization [facility] Address [place] [address] Care Team Providers Care Software Development Intern Name Role Phone Evelia Garcia MD Primary Care Provider [phone] Allergies Active Allergy Reactions Criticality Noted Date Comments Adhesive *Unknown 04/13/2023 Alfalfa And Derivatives Anaphylaxis High 12/15/2022 Grapefruit GI Upset 04/20/2022 Lactase GI Upset High 12/15/2022 Pineapple Hives Medium 03/09/2022 Tomato Itching,Rash 10/12/2022 Medications Medication Sig Dispensed Refills Start Date End Date Status diphenhydrAMINE (BENADRYL) 25 mg capsule Take 50 mg by mouth every 6 hours if needed. 0 02/24/2022 Active melatonin 5 mg tab tablet Take 5 mg by mouth once daily if needed. 0 Active ondansetron (ZOFRAN ODT) 4 mg disintegrating tabletIndications:Naus ea Place 1 Tablet (4 mg) on the tongue every 8 hours if needed for Nausea/Vomiting . 30 Tablet 0 09/30/2022 Active dextroamphetamine-amph etamine (Adderall XR) 10 mg Extended-Release capsuleIndications:Att ention deficit hyperactivity disorder (ADHD), predominantly inattentive type Take 1 Capsule (10 mg) by mouth once daily. 30 Capsule 0 10/12/2022 Active fluticasone (50 mcg per actuation) nasal solution (FLONASE) Inhale 1 [place] into affected nostril(s). 0 01/06/2023 Active loratadine (CLARITIN) 10 mg tablet Take 10 mg by mouth. 0 01/06/2023 Active dextroamphetamine-amph etamine (Adderall XR) 10 mg Extended-Release capsuleIndications:Att ention deficit hyperactivity disorder (ADHD), predominantly inattentive type Take 1 Capsule (10 mg) by mouth once daily. 30 Capsule 0 06/10/2023 Active sertraline (ZOLOFT) 100 mg tabletIndications:Gene ralized anxiety disorder Take 1 Tablet (100 mg) by mouth once daily. 90 Tablet 0 04/11/2023 Active sertraline (ZOLOFT) 25 mg tabletIndications:Gene ralized anxiety disorder Take 1 Tablet (25 mg) by mouth once daily. Take with 100 mg tablet for total of 125 mg daily. 90 Tablet 0 04/11/2023 Active hydrOXYzine HCL (ATARAX) 25 mg tabletIndications:Gene ralized anxiety disorder Take 1-2 tablets (25-50 mg) once daily as needed for anxiety. Do not take with Benadryl. 60 Tablet 2 04/11/2023 Active ibuprofen (ADVIL; MOTRIN) 600 mg tablet Take 600 mg by mouth every 6 hours if needed. 0 04/19/2023 Active blood-glucose meterIndications:Hypog lycemia Dispense meter, test strips, lancets covered by pt ins. For Hypoglycemia. Check blood sugar when symptoms occur. 1 Each 0 06/13/2023 Active Active Problems Problem Noted Date Diagnosed Date POTS (postural orthostatic tachycardia syndrome) 06/13/2023 Syncope and collapse 06/13/2023 Generalized anxiety disorder 10/13/2022 Attention deficit hyperactiv ity disorder (ADHD), predominantly inattentive type 10/13/2022 Controlled substance agreement signed 10/12/2022 Overview: 10/12/2022, Laith Spears NP, Psychairty Bipolar II disorder 08/26/2022 Immunizations Name Administration Dates Next Due COVID-19 Vaccine Spikevax (M oderna 50mcg/0.5mL) 12YO+ [id number] Formula PF 05/11/2023 COVID-19 vaccine ([place] [employer] NTech 30mcg/0.3mL) 12YO+ BIVALENT PF, MDV 04/20/2022 DTaP 04/24/2008, 6,03/30/2005,09/08,2003,2003 HIB-HepB (Comvax) 11/11/2004 HPV 9 (Gardasil 9) 05/08/2015 Hepatitis A (Peds) 11/22/2006,04/07/2006 Hepatitis B (Peds) 11/11/2004,09/08/2004, 004 Hib Conjugate, Unspecified 11/11/2004,09/08/2004 ,2003 Human Papilloma Virus Vaccine 01/06/2015, 015 Inactivated Polio Vaccine 04/24/2008,,09/08/2004,12/24 Influenza Virus, Unspecified 07/29/2022,06/05/20 19,09/06/2017 Influenza, IIV4 05/05/2023 Influenza,LAIV4 Live Intrana leo (Flumist) 06/04/2015 MMR 04/24/2008,11/11/2004 Meningococcal Vaccine (Menactra) 04/16/2020,03/2015 Pneumococcal conj 7-Valent (Prevnar 7) 1 2004,03/30/2005,09/08/2004,12/24 Tdap 09/25/2014 Varicella Vaccine 04/24/2008,11/11/2004 Social History Tobacco Use Types Packs/Day Years Used Date Smoking Tobacco: Never Passive Smoke Exposure: Never Smokeless Tobacco: Never Tobacco Cessation:Counseling Given: Yes Alcohol Use Standard Drinks/Week Comments Never 0 (1 standard drink = 0.6 oz pur e alcohol) PHQ-2 Answer Date Recorded PHQ-2 TOTAL SCORE 4 04/11/2023 Social Connections Answer Date Recorded Frequency of Communication with Friends and Fami ly Not on file 08/26/2023 Financial Resource Strain Answer Date R ecorded Difficulty of Paying Living Expenses 3 08/25/2022 Difficulty of Paying Living Expenses Not on file 08/25/2022 Food Insecurity Answer Date Recorded Worried About Running Out of Food in the Last Ye ar 1 08/25/2022 Transportation Needs Answer Date Record ed Lack of Transportation (Medical) 1 08/25/2022 Housing Stability Answer Date Recorded Unable to Pay for Housing in the Last Year 1 08/25/2022 Sex and Gender Information Value Date Recorded Sex Assigned at Female 08/31/2022 10:12 AM COMMUTATOR PRESSER Gender Identity nonbinary 09/04/2022 11:21 PM COMMUTATOR PRESSER Sexual Orientation Not on file Obstetrics History Last Filed Vital Signs Vital Sign Reading Time Taken Comments Blood Pressure 118/77 06/14/2023 9:35 AM COMMUTATOR PRESSER Pulse 85 06/14/2023 9:35 AM COMMUTATOR PRESSER Temperature 36.7 ??C (98 ??F) 08/26/2022 2:13 PM COMMUTATOR PRESSER Respiratory Rate - - Oxygen Saturation 95% 06/14/2023 9:35 AM COMMUTATOR PRESSER Inhaled Oxygen Concentration - - Weight 100.7 kg (222 lb) 06/14/2023 9:35 AM COMMUTATOR PRESSER Height 174 cm (5' 8.5) 04/22/2023 8:44 AM CDT Body Mass Index - - Plan of Treatment Health Maintenance Due Date Last Done Comments Well Child Check for age 3-20 08/12/2006 HIV for age 15-65 2018 Chlamydia for age 16-24 2019 Hepatitis C screening for age 18-79 2021 Depression screening for age 12+ 04/11/2024 04/11/2023, 11/10/2022, 11/09/2022, Additional history exists BMI (ht and wt on same day) for age 18+ 04/22/2024 04/22/2023, 11/09/2022, 04/20/2022 Tetanus booster 09/25/2024 09/25/2014 Pneumococcal series for age 6-64 Aged Out 07/12/2005, 03/30/2005, 09/08/2004, Additional history exists No longer eligible based on patient's age to complete this topic Tdap Completed 09/25/2014 HPV series for age 9-26 Completed 05/08/20 15, 01/06/2015, 09/25/2014 HPV series for age 9-26 Completed 05/08/20 15, 01/06/2015, 09/25/2014 Meningococcal series for age 11-21 Completed 04/16/2020, 01/06/2015 Influenza for age 9-49 Completed 3, 07/29/2022, 06/05/2019, Additional history exists COVID-19 vaccine series Completed 05/11/20 23, 04/20/2022, 08/26/2021, Additional history exists Care Teams Software Development Intern Relationship Specialty Start Date End Date Evelia Garcia MD [address] [place] [address] PCP - General Family Practice 08/06/22
--- OUTSIDE RECORDS SUMMARY | 2023-09-19 22:24 | XMS_ITS | Encounter Summary ---
Author Name Unknown Organization [facility] Address [address] [place] [address] Care Team Providers Care Latex Caster Name Role Phone None Reported, Pcp Primary Care Provider Unavail able Encounter Details Date Type Department Care Team (Latest Contact Info) Description 08/17/2022 Intake [facility] Social History Tobacco Use Types Packs/Day Years Used Date Smoking Tobacco: Never Alcohol Use Standard Drinks/Week Comments Never 0 [...] on file Sexual Orientation Not on file documented as of this encounter Plan of Treatment Not on file documented as of this encounter Visit Diagnoses Not on filedocumented in this encounter Additional Health Concerns Assessment Noted Time PHQ-9 Depression Total Score: 14 023 2:57 PM NON CDL DRIVER documented as of this encounter Care Teams Latex Caster Relationship Specialty Start Date End Date None Reported, Pcp PCP - General Family Medicine 08/17/22 documented as of this encounter
--- OUTSIDE RECORDS SUMMARY | 2023-09-19 22:24 | XMS_ITS | Referral Summary ---
Author Name Unknown Organization [facility] Address [address] [place] [address] Care Team Providers Care Position Classification Specialist Name Role Phone None Reported, Pcp Primary Care Provider Unavail able Source Comments Patient records contain information from all sites at [facility]. For routine questions regarding patient records, call [phone] during business hours, M-F 8:00 AM - 5:00 PM Central Time. Record requests for emergency care only can be directed to [phone] at any time.[facility] Allergies Active Allergy Reactions Criticality Noted Date [...] Date Resolved Date Suicide Ideation 08/17/2022 08/22/2022 Social History Tobacco Use Types Packs/Day Years [...] Comments Blood Pressure 107/55 08/22/2022 6:45 AM LONG HAUL TRUCK DRIVER Pulse 58 08/22/2022 6:45 AM LONG HAUL TRUCK DRIVER Temperature 36.3 ??C (97.3 ??F) 08/22/2022 6:45 AM CS T Respiratory Rate 16 08/22/2022 6:45 AM LONG HAUL TRUCK DRIVER Oxygen Saturation 99% 08/22/2022 6:45 AM LONG HAUL TRUCK DRIVER Inhaled Oxygen Concentration - - Weight 87.1 kg (192 lb) 08/17/2022 3:00 AM LONG HAUL TRUCK DRIVER Height 172.7 cm (5' 8) 08/17/2022 3:00 AM LONG HAUL TRUCK DRIVER Body Mass Index 29.19 08/17/2022 3:00 AM LONG HAUL TRUCK DRIVER Plan of Treatment Not on file Advance Directives For more information, please contact: [phone] Latest Code Status on File Code Status Date Activated Date Inactivated Comments Full Code 08/17/2022 3:26 AM 08/22/2022 11:38 AM Question Answer Comments Full Code: Not Discussed Due to: Not medically appropriate Care Teams Position Classification Specialist Relationship Specialty Start Date End Date None Reported, Pcp PCP - General Family Medicine 08/17/22
[2023-09-19 22:31] LABS: Basophils Absolute Auto 0.02 K/uL (0.00-0.30); Basophils Percent Auto 0.4 % (0.0-3.0); Eosinophils Absolute Auto 0.07 K/uL (0.00-0.50); Eosinophils Percent Auto 1.4 % (0.0-7.0); Hematocrit 36.7 % (33.0-51.0); Hemoglobin* 11.4 gm/dL (12.0-16.0); Lymphocytes Percent Auto 44.9 % (20-44); Mean Corpuscular HGB Conc 31 gm/dL (32-36); Mean Corpuscular Hemoglobin 29 pg (26-34); Mean Corpuscular Volume 93 fL (80-100); Monocytes Percent Auto 9.5 % (0.0-11.0); Neutrophils Absolute Auto 2.25 K/uL (1.7-7.0); Neutrophils Percent Auto 43.8 % (42.0-72.0); Platelet Count* 277 K/uL (140-440); RDW Coefficient of Variation % 11.9 % (11.5-15.5); Red Blood Count 3.93 m/uL (4.00-5.20); White Blood Count* 5.14 K/uL (4.50-11.00)
[2023-09-19] MEDS: ONDANSETRON 2 MG/ML inj 4 MG IVP (22:34)
[2023-09-19 22:41] LABS: Albumin* 4.7 g/dL (3.3-5.0)
[2023-09-19 22:42] LABS: Chloride* 106 mmol/L (96-114); Potassium* 3.5 mmol/L (3.6-5.1); Sodium* 138 mmol/L (135-149)
[2023-09-19 22:44] LABS: Anion Gap 8 mEq/L (7-15); Aspartate Amino Transferase* 34 U/L (12-35); Bilirubin Total* 0.3 mg/dL (0.1-1.5); Blood Urea Nitrogen* 12 mg/dL (5-24); Carbon Dioxide* 24 mmol/L (20-32); Creatinine* 0.6 mg/dL (0.5-1.5); Est. Creatinine Clearance* 150.88; Estimated Glomerular Filt Rate 132 ml/min; Total Protein* 8.1 g/dL (6.0-8.3)
[2023-09-19 22:45] LABS: Alanine Aminotransferase* 30 U/L (4-35); Alkaline Phosphatase* 73 U/L (40-150); Calcium* 9.2 mg/dL (8.4-10.6); Glucose* 96 mg/dL (60-115); Magnesium* 1.9 mg/dL (1.5-2.6)
[2023-09-19 22:52] LABS: Ethanol* < 0.01 % (0.01-0.03)
[2023-09-19 22:58] LABS: Slide Review Reflex No
[2023-09-19 23:20] LABS: Appearance Urine Slightly Cloudy (Clear); Bilirubin Urine Negative (Negative); Blood Urine 1+ (Negative); Color Urine Yellow (Yellow); Glucose Urine Negative (Negative); Ketones Urine Negative (Negative); Leukocyte Esterase Urine Trace (Negative); Nitrite Urine Negative (Negative); Protein Urine Negative (Negative); Specific Gravity Urine 1.025 (1.000-1.030); Urobilinogen Urine 0.2 (0.2-1.0); pH Urine 6.5 (5.0-8.5)
[2023-09-19 23:23] LABS: Amphetamine Screen Urine POSITIVE (Negative); Barbiturate Screen Urine Negative (Negative); Benzodiazepines Screen Urine Negative (Negative); Cannabinoid Screen Urine Negative (Negative); Cocaine Screen Urine Negative (Negative); Methadone Screen Urine Negative (Negative); Methamphetamines Screen Urine Negative (Negative); Opiate Screen Urine POSITIVE (Negative); Oxycodone Screen Urine Negative (Negative); Phencyclidine Screen Urine Negative (Negative); Tricyclic Antidepressant Urine Negative (Negative)
[2023-09-19 23:38] LABS: Amorphous Sediment Urine Few; Bacteria Urine Moderate; RBC Urine 0-2 (0-2); Squamous Epithelial Cell Urine Moderate (None-Few)
[2023-09-19 23:55] LABS: Ur HCG Qualitative* Negative (Negative)
--- NOTE | 2023-09-20 00:07 | PC.NURSE ---
public safety contacted for transport. patient DC via W/C per request, all DC instructions reviewed with fely and she has no further questions. patients belongings all sent home with patient
== END 2023-09-20 00:09 | disposition home or self-care (01) ==
PROVIDERS: Emergency Provider Emergency Medicine; PCP Family Medicine
DX: R41.82 Altered mental status, unspecified (principal)
CPT/HCPCS: 36415; 80048; 80076; 80306; 81001; 81025; 82077; 83735; 85025; 87086; 96374; 99283; 99284; J2405

== ENCOUNTER 2023-09-20 17:55 | Outpatient (CLI) | payer OTHER, SELFPAY | END 2023-09-20 17:56 | disposition home or self-care (01) | LOC: AMB 10-07 13:36 | PROVIDERS: PCP Family Medicine; Visit Provider Emergency Medicine | DX: R55 Syncope and collapse (principal) | CPT/HCPCS: A0998 ==

== ENCOUNTER 2023-09-21 17:10 | Outpatient (CLI) | payer OTHER, SELFPAY | END 2023-09-21 17:11 | disposition home or self-care (01) | LOC: AMB 10-07 13:44 | PROVIDERS: PCP Family Medicine; Visit Provider Student in an Organized Health Care Education/Training Program | DX: R55 Syncope and collapse (principal) | CPT/HCPCS: A0425; A0433 ==

== ENCOUNTER 2023-09-21 21:40 | Emergency (ER) | payer OTHER, MEDICAID, SELFPAY ==
[2023-09-21 21:57] VITALS: BP 115/59; PULSE 97; RESP 20; TEMP 37.6; O2SAT 95; BMI 36.5
[2023-09-21 22:10] VITALS: PULSE 93; O2SAT 95
[2023-09-21 22:30] VITALS: PULSE 93; O2SAT 94
[2023-09-21 22:31] VITALS: BP 131/49; PULSE 92; O2SAT 93
--- NOTE | 2023-09-21 22:39 | CT_ITS ---
Final Report Patient: [facility] Facility:?[facility] Patient ID:?[id number] Site Patient ID:?[id number]. Site :?2003 Study:?CT Abdomen/Pelvis W/ISOVUE 370 118CC-09/21/2023 11:56:25 PM Ordering Physician:JENIFER Final Report: INDICATION: Diffuse abdominal pain. TECHNIQUE: CT abdomen and pelvis acquired with 118 cc Isovue 370 IV contrast. COMPARISON: None. FINDINGS: Lower chest: Unremarkable. Liver: Unremarkable. Normal in size and attenuation. No suspicious masses. Gallbladder and bile ducts: Unremarkable. No stones or inflammation. No biliary dilatation. Pancreas: Unremarkable. No mass or inflammation. Spleen: Unremarkable. Normal in size. No masses. Adrenal glands: Unremarkable. No nodules. Kidneys: Unremarkable. No suspicious masses, stones, or hydronephrosis. GI tract: Large colonic stool burden. Fecalized terminal ileum, implying a slow transit state. No bowel obstruction, mural thickening, or inflammatory changes. Normal appendix. Vasculature: Abdominal aorta is normal in caliber. Mesenteric arteries are patent. Lymph nodes: No lymphadenopathy. Peritoneum/Abdominal Wall: Unremarkable. No sign of mass or infiltration. No free air or significant free fluid. Pelvis: Unremarkable. Bones: Unremarkable for age. IMPRESSION: 1. No acute findings within the abdomen and pelvis. Normal appendix. 2. Large colonic stool burden with fecalized terminal ileum, implying a slow transit state. Recommend correlation for constipation. Please note that all CT scans at this facility use dose modulation, iterative reconstruction, and/or weight-based dosing when appropriate to reduce radiation dose to as low as reasonably achievable. Dictated by Mio Rose MD @ 09/22/2023 12:03:07 AM (Electronic Signature)
--- NOTE | 2023-09-21 22:53 | ED_ITS ---
HPI - General Adult General Date Seen: 09/21/23 Chief complaint: Syncope/Fainted Stated complaint: Syncopal Time Seen by Provider: 09/21/23 21:41 Source: patient Mode of arrival: EMS Limitations: no limitations History of Present Illness HPI narrative: Patient is a 18-year-old female presenting to the emergency department for multiple complaints. She has a history of multiple unresponsive episodes that she has been coming to our emergency department for over the past few months. She says she has been dealing with this for several years. She states she would just pass out and has been told she has chronic neurocardiogenic syncope also known as vasovagal syncope. She has had this worked up by multiple doctors in [place] where she is from. She last saw her providers 3 weeks ago and has seen her neurologist in 2 days. 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 Based on previous notes she will wake up to stimulation during these seizure episodes. EMS was called to her today for a multiple episodes of passing out. They tried to get her to a improved symptom pena but they states she within passed out for 6-7 minutes very frequently they state. They state by her side for several hours. She is now states she feels asymptomatic other than some abdominal pain she has been having for a few days. She do with having abdominal pain last time she was seen in the emergency department and lab work was done and was normal. Denies having symptoms like this before. Her mother called in says she is concerned about the abdominal pain gets is not normal for her. Patient denies chest pain, shortness of breath, lightheadedness, dizziness, nausea/vomiting, fevers, chills. Related Data Home Medications Medication Instructions Recorded Confirmed fluticasone propionate 50 1 spray intranasal DAILY 06/19/22 09/21/23 mcg/actuation nasal spray,suspension loratadine 10 mg tablet 10 mg PO DAILY 06/19/22 09/21/23 sertraline 100 mg tablet (Zoloft) 100 mg PO Q24H 06/19/22 09/21/23 sertraline 25 mg tablet (Zoloft) 25 mg PO DAILY 06/19/22 09/21/23 dextroamphetamine-amphetamine ER 1 cap PO DAILY 12/15/22 09/21/23 10 mg 24hr capsule,extend release (Adderall XR) divalproex 500 mg tablet,extended 500 mg PO DAILY 12/15/22 09/21/23 release 24 hr hydroxyzine HCl 25 mg tablet 25 - 50 mg PO DAILY PRN anxiety 04/13/23 09/21/23 ondansetron 4 mg disintegrating 4 mg PO Q8H PRN nausea/vomiting 04/13/23 09/21/23 tablet albuterol sulfate 90 mcg/actuation inhalation 09/19/23 aerosol inhaler cholecalciferol (vitamin D3) 25 PO 09/19/23 mcg (1,000 unit) tablet hydroxyzine pamoate 25 mg capsule 25 mg PO DAILY PRN 09/19/23 09/21/23 Previous Rx's Medication Instructions Recorded prednisone 20 mg tablet 20 mg PO BID #10 tabs 12/15/22 Allergies Allergy/AdvReac Type Severity Reaction Status Date / Time Labette And Derivatives Allergy Severe Anaphylaxis Verified 09/21/23 21:56 tomato Allergy Intermediate Rash Verified 09/21/23 21:56 adhesive Allergy Unknown Verified 09/21/23 21:56 grapefruit Allergy Unknown Rash Verified 09/21/23 21:56 pineapple Allergy Unknown Rash Verified 09/21/23 21:56 dairy Allergy Intermediate Gi Uncoded 12/15/22 19:11 intolerance Review of Systems Status of ROS: Reports: 10 or more systems reviewed and unremarkable except as noted in History and below [facility] Medical History Seasonal allergies ?J30.2 - Other seasonal allergic rhinitis (ICD-10) Fainting ?R55 - Syncope and collapse (ICD-10) Anxiety and depression ?F41.9 - Anxiety disorder, unspecified (ICD-10) ?F32.A - Depression, unspecified (ICD-10) Asthma ?J45.909 - Unspecified asthma, uncomplicated (ICD-10) Anemia ?D64.9 - Anemia, unspecified (ICD-10) Surgical History History of wisdom tooth extraction ?K08.409 - Partial loss of teeth, unspecified cause, unspecified class (ICD-1 0) Social History Smoking Status: Never smoker Do you use any of these nicotine containing products: None and Vaping Products Second hand tobacco smoke exposure: No How often do you have a drink containing alcohol: never How often do you have six or more drinks on one occasion: Never AUDIT-C Alcohol total score: 0 Non-prescribed substance use: denies use service: No Exam Narrative: Exam Narrative: Const: Well-nourished, Well-developed, in mild distress Eyes: PERRL, no conjunctival injection, and symmetrical lids HENT: Atraumatic external nose and ears. Moist mucous membranes. Neck: Symmetric, trachea midline, No thyromegaly. CVS: RRR, No murmurs or gallops. Peripheral pulses 2+ and equal in all ex tremities RESP: Unlabored respiratory effort. Clear to auscultation bilaterally. GI: Diffuse abdominal tenderness, Nondistended, No rebound or guarding. MSK:Extremities w/o deformity, Normal Active ROM Skin: Warm, Dry. No rashes or lesions. Neuro: Normal Muscle tone, No focal neurological deficits. Psych: Awake, Alert, & Oriented x3. Appropriate mood and affect. Const: Vital Signs, click to edit/add: Vital Signs - 24 hr 09/21/23 21:57 09/21/23 22:10 09/21/23 22:30 Temperature 99.6 F Pulse Rate 93 93 Pulse Rate [Pulse Oximeter] 97 Respiratory Rate 20 Blood Pressure Blood Pressure [Ri ght Upper Arm] 115/59 L Pulse Oximetry 95 95 94 Oxygen Delivery Me thod Room Air 09/21/23 22:31 09/21/23 23:00 09/21/23 23:01 Temperature Pulse Rate 92 88 87 Pulse Rate [Pulse Oximeter] Respiratory Rate Blood Pressure 131/49 L 105/60 Blood Pressure [Ri ght Upper Arm] Pulse Oximetry 93 96 96 Oxygen Delivery Me thod Course Vital Signs Vital signs: Initial Vital Signs Temperature 99.6 F 09/21/23 21:57 Temperature Source Temporal Artery Scan 09/21/23 21:57 Pulse Rate 97 09/21/23 21:57 Respiratory Rate 20 09/21/23 21:57 Blood Pressure 115/59 L 09/21/23 21:57 Blood Pressure Mean 77 09/21/23 21:57 Blood Pressure Position Left Lateral 09/21/23 21:57 Pulse Oximetry 95 09/21/23 21:57 Oxygen Delivery Method Room Air 09/21/23 21:57 Vital Signs Temperature 99.6 F 09/21/23 21:57 Pulse Rate 97 09/21/23 21:57 Respiratory Rate 20 09/21/23 21:57 Blood Pressure 115/59 L 09/21/23 21:57 Pulse Oximetry 95 09/21/23 21:57 Oxygen Delivery Method Room Air 09/21/23 21:57 Temperature 99.6 F 09/21/23 21:57 Pulse Rate 87 09/21/23 23:01 Respiratory Rate 20 09/21/23 21:57 Blood Pressure 105/60 09/21/23 23:01 Pulse Oximetry 96 09/21/23 23:01 Oxygen Delivery Method Room Air 09/21/23 21:57 Medical Decision Making MDM Narrative Medical decision making narrative: Patient is a 18-year-old presenting to the emergency department for abdominal pain and syncopal episodes. These syncopal episodes and seizure episodes have been worked up extensively here in the emergency department and she has even been offered a psych evaluation as previous provider is believe a lot this is psych related. She has also had extensive workup done with her doctors in [place]. She has had 0 episodes here in the emergency department I do not believe this needs to be further worked up at this time. Her mother is concerned about her abdominal pain we will work this up. Will order CBC, CMP, lipase and do a CT scan of the abdomen and pelvis. She did not get imaging a few days ago when the symptoms started. CBC, CMP, lipase all returned showing no concerning findings. Hemoglobin appears stable. CT scan reviewed by myself and the radiologist shows a large stool burden. Removed this constipation may be was causing her recent abdominal pain no other acute concerning findings were seen. She was given instructions to have a colon cleanout prep done to help with the constipation. Patient is agreeable to this plan. Of note her entire time she was in the emergency department she had no further episodes of syncope or seizure-like activity. Lab Data Labs: Lab Results 09/21/23 Range/Units 23:00 WBC 5.74 (4.50-11.00) K/uL RBC 3.83 L (4.00-5.20) m/uL Hgb 11.2 L (12.0-16.0) gm/dL Hct 36.0 (33.0-51.0) % MCV 94 (80-100) fL MCH 29 (26-34) pg MCHC 31 L (32-36) gm/dL RDW Coeff of Preeti 11.9 (11.5-15.5) % Plt Count 273 (140-440) K/uL Neut % (Auto) 52.6 (42.0-72.0) % Lymph % (Auto) 36.6 (20-44) % [place] % (Auto) 9.1 (0.0-11.0) % Eos % (Auto) 0.9 (0.0-7.0) % Baso % (Auto) 0.3 (0.0-3.0) % Neut # (Auto) 3.02 (1.7-7.0) K/uL Lymph # (Auto) 2.10 (0.90-2.90) K/uL [place] # (Auto) 0.50 (0.00-0.90) K/UL Eos # (Auto) 0.05 (0.00-0.50) K/uL Baso # (Auto) 0.02 (0.00-0.30) K/uL Abs Immat Gran (auto) 0.03 (0.00-0.30) K/uL Imm/Tot Granulo (auto) 0.5 % Sodium 140 (135-149) mmol/L Potassium 3.7 (3.6-5.1) mmol/L Chloride 105 (96-114) mmol/L Carbon Dioxide 26 (20-32) mmol/L Anion Gap 9 (7-15) mEq/L BUN 12 (5-24) mg/dL Creatinine 0.6 (0.5-1.5) mg/dL Estimated Creat Clear 150.88 Estimated GFR 132 ml/min Glucose 97 (60-115) mg/dL Calcium 9.1 (8.4-10.6) mg/dL Total Bilirubin 0.3 (0.1-1.5) mg/dL AST 24 (12-35) U/L ALT 20 (4-35) U/L Alkaline Phosphatase 71 (40-150) U/L Total Protein 7.6 (6.0-8.3) g/dL Albumin 4.4 (3.3-5.0) g/dL Lipase 66 (23-300) U/L HCG, Qual Negative (Negative) Imaging Data CT scan abdomen pelvis: Radiologist's impression: 1. No acute findings within the abdomen and pelvis. Normal appendix. 2. Large colonic stool burden with fecalized terminal ileum, implying a slow transit state. Recommend correlation for constipation. Please note that all CT scans at this facility use dose modulation, iterative reconstruction, and/or weight-based dosing when appropriate to reduce radiation dose to as low as reasonably achievable. Dictated by Mio Rose MD @ 09/22/2023 12:03:07 AM Discharge Plan Discharge Clinical Impression: Constipation Qualifiers: Constipation type: unspecified constipation type Qualified Code(s): K59.00 - Constipation, unspecified Patient Disposition: Home, Self-Care Condition: Stable Instructions: Constipation (DC) Additional Instructions: ?2 - Bisacodyl tablets (Dulcolax? laxative NOT Dulcolax? stool softener) each tablet contains 5 mg of bisacodyl ?1 - 8.3 ounce bottle of Polyethylene Glycol (PEG) 3350 Powder (MiraLAX, SmoothLAX, ClearLAX or generic equivalent) 64 oz. Gatorade? (No red colored flavors) Regular Gatorade?, Gatorade G2?, Powerade?, Powerade Zero?, Pedialyte or Propel?, Liquid IV, and other electrolyte beverages are acceptable. Red flavors are not allowed; all other colors (yellow, green, orange, purple, blue) are okay. It is also okay to buy two 2.12 oz packets of powdered Gatorade that can be mixed with water to a total volume of 64 oz of liquid. ?1 - 10 oz. bottle Magnesium Citrate (No red colored flavors) It is also okay for you to use a 0.5 ounce package of powdered magnesium citrate (17 grams) mixed with 10 ounces of water. ?Tomorrow begin Clear Liquid Diet (clear liquids include things you can see through). Examples of a clear liquid diet include: water, clear broth or bouillon (gluten free options available), Gatorade, Pedialyte or Powerade, car bonated and non-carbonated soft drinks (Sprite, 7-Up, Gingerale), strained fruit juices without pulp (apple, white grape, white cranberry), Jell-O, popsicles, and up to one cup of black coffee or tea (no milk or cream) each day. The following are not allowed on a clear liquid diet: red liquids, alcoholic beverages, dairy products, protein shakes, cream broths, juice with pulp, products containing oil and chewing tobacco. For additional details on following a clear liquid diet, please see [email or web address]-[email or web address] ?Take 2 Bisacodyl (Dulcolax) tablets ?4-6 hour later Drink Miralax ? Gatorade preparation Mix 1 bottle of Miralax with 64 oz. of Gatorade in a large pitcher. Drink 1 - 8 oz. glass of the Miralax/Gatorade solution. Continue drinking 1 - 8 oz. glass every 15 minutes thereafter until the mixture is gone Prescriptions: No Action fluticasone propionate 50 mcg/actuation spray,suspension 1 spray INTRANASAL DAILY Patient Comments: INSTILL 1 SPRAY INTO AFFECTED NOSTRIL/S DAILY loratadine 10 mg tablet 10 mg PO DAILY Patient Comments: TAKE 1 TABLET (10 MG TOTAL) BY MOUTH DAILY sertraline [Zoloft] 100 mg tablet 100 mg PO Q24H sertraline [Zoloft] 25 mg tablet 25 mg PO DAILY albuterol sulfate 90 mcg/actuation HFA aerosol inhaler inhalation hydroxyzine pamoate 25 mg capsule 25 mg PO DAILY PRN cholecalciferol (vitamin D3) 25 mcg (1,000 unit) tablet PO divalproex 500 mg tablet extended release 24 hr 500 mg PO DAILY dextroamphetamine-amphetamine [Adderall XR] 10 mg capsule,extended release 24hr 1 cap PO DAILY prednisone 20 mg tablet 20 mg PO BID Qty: 10 0RF hydroxyzine HCl 25 mg tablet 25 - 50 mg PO DAILY PRN (Reason: anxiety) ondansetron 4 mg tablet,disintegrating 4 mg PO Q8H PRN (Reason: nausea/vomiting) Follow Up/Referrals: Evelia Garcia MD [Primary Care Provider] - Stand Alone Forms: [facility] Info Instructions
[2023-09-21 23:00] VITALS: PULSE 88; O2SAT 96
[2023-09-21 23:01] VITALS: BP 105/60; PULSE 87; O2SAT 96
[2023-09-21 23:07] LABS: Basophils Absolute Auto 0.02 K/uL (0.00-0.30); Basophils Percent Auto 0.3 % (0.0-3.0); Eosinophils Absolute Auto 0.05 K/uL (0.00-0.50); Eosinophils Percent Auto 0.9 % (0.0-7.0); Hemoglobin* 11.2 gm/dL (12.0-16.0); Immature Granulocytes Abs Auto 0.03 K/uL (0.00-0.30); Immature Granulocytes Pct Auto 0.5 %; Lymphocytes Percent Auto 36.6 % (20-44); Mean Corpuscular HGB Conc 31 gm/dL (32-36); Mean Corpuscular Hemoglobin 29 pg (26-34); Mean Corpuscular Volume 94 fL (80-100); Monocytes Percent Auto 9.1 % (0.0-11.0); Neutrophils Absolute Auto 3.02 K/uL (1.7-7.0); Neutrophils Percent Auto 52.6 % (42.0-72.0); Platelet Count* 273 K/uL (140-440); RDW Coefficient of Variation % 11.9 % (11.5-15.5); Red Blood Count 3.83 m/uL (4.00-5.20); White Blood Count* 5.74 K/uL (4.50-11.00)
[2023-09-21 23:40] LABS: Slide Review Reflex No
[2023-09-21 23:41] LABS: Albumin* 4.4 g/dL (3.3-5.0); Chloride* 105 mmol/L (96-114); Sodium* 140 mmol/L (135-149)
[2023-09-21 23:42] LABS: Potassium* 3.7 mmol/L (3.6-5.1)
[2023-09-21 23:44] LABS: Alanine Aminotransferase* 20 U/L (4-35); Alkaline Phosphatase* 71 U/L (40-150); Anion Gap 9 mEq/L (7-15); Aspartate Amino Transferase* 24 U/L (12-35); Bilirubin Total* 0.3 mg/dL (0.1-1.5); Blood Urea Nitrogen* 12 mg/dL (5-24); Carbon Dioxide* 26 mmol/L (20-32); Creatinine* 0.6 mg/dL (0.5-1.5); Est. Creatinine Clearance* 150.88; Estimated Glomerular Filt Rate 132 ml/min; Glucose* 97 mg/dL (60-115); Lipase* 66 U/L (23-300); Total Protein* 7.6 g/dL (6.0-8.3)
[2023-09-21 23:45] LABS: Calcium* 9.1 mg/dL (8.4-10.6); HCG Qualitative Serum* Negative (Negative)
== END 2023-09-22 01:15 | disposition home or self-care (01) ==
PROVIDERS: Emergency Provider Student in an Organized Health Care Education/Training Program; PCP Family Medicine
DX: J44.1 Chronic obstructive pulmonary disease with (acute) exacerbation (principal)
CPT/HCPCS: 36415; 74177; 80053; 83690; 84703; 85025; 99283; 99285; Q9967

== ENCOUNTER 2023-09-26 20:01 | Outpatient (CLI) | payer OTHER, SELFPAY | END 2023-09-26 20:02 | disposition home or self-care (01) | LOC: AMB 10-08 15:34 | PROVIDERS: PCP Family Medicine; Visit Provider Family Medicine | DX: R56.9 Unspecified convulsions (principal) | CPT/HCPCS: A0425; A0427 ==

== ENCOUNTER 2023-09-26 20:27 | Emergency (ER) | payer OTHER, MEDICAID, SELFPAY ==
[2023-09-26 20:31] VITALS: BP 145/101; PULSE 95; RESP 18; TEMP 37; O2SAT 98; BMI 35.4
[2023-09-26 20:56] VITALS: BP 133/89; PULSE 89; RESP 16; O2SAT 98
--- NOTE | 2023-09-26 20:57 | PC.NURSE ---
patient left with out being seen, paper work signed
== END 2023-09-26 21:52 | disposition left against medical advice (07) ==
PROVIDERS: Emergency Provider Family Medicine; PCP Family Medicine
DX: Z53.21 Procedure and treatment not carried out due to patient leaving prior to being seen by health care provider (principal)

== ENCOUNTER 2023-10-04 21:32 | Outpatient (CLI) | payer OTHER, SELFPAY | END 2023-10-04 21:33 | disposition home or self-care (01) | LOC: AMB 10-15 06:10 | PROVIDERS: PCP Family Medicine; Visit Provider Emergency Medicine | DX: R51.9 Headache, unspecified (principal) | CPT/HCPCS: A0998 ==

== ENCOUNTER 2023-11-20 19:32 | Outpatient (CLI) | payer OTHER, SELFPAY ==
--- OUTSIDE RECORDS SUMMARY | 2023-12-02 04:04 | XMS_ITS ---
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 Procedure Estimated Blood Loss Check Surgery Details section. Procedure Findings Check Surgery Details section. Procedure Specimens Taken Check Surgery Details section.
--- OUTSIDE RECORDS SUMMARY | 2023-12-02 04:04 | XMS_ITS | Referral Summary ---
Author Name Unknown Organization [facility] Address [address] [place] [id number] Care Team Providers Care Certified Paralegal Name Role Phone None Reported, Pcp Primary Care Provider Unavail able Source Comments Patient records contain information from all sites at [facility]. For routine questions regarding patient records, call [phone] during business hours, M-F 8:00 AM - 5:00 PM Central Time. Record requests for emergency care only can be directed to [phone] at any time.[facility] Allergies Active Allergy Reactions Criticality Noted Date Comments Grapefruit Rash,GI intolerance Medium 04/20/2022 Milk GI intolerance Medium 11/29/2019 Pineapple Rash Medium 07/05/2022 Medications Medication Sig Dispensed Refills Start Date End Date Status diphenhydrAMINE (BENADRYL) 25 mg capsule Take 50 mg by mouth every 6 (six) hours as needed for itching. 02/24/2022 Active fluticasone propionate (FLONASE) 50 mcg/actuation nasal spray Administer 1 spray into each nostril daily. 04/12/2022 Active ibuprofen (ADVIL,MOTRIN) 400 mg tablet Take 400 mg by mouth every 8 (eight) hours as needed. 09/04/2019 Active levonorgestreL-ethiny l estrad (AVIANE,ALESSE,LESSIN A) 0.1-20 mg-mcg per tablet Take 1 tablet by mouth daily. 05/01/2019 Active melatonin 5 mg tablet Take 5 mg by mouth at bedtime as needed. Active divalproex (DEPAKOTE ER) 500 mg 24 hr tablet Take 1 tablet (500 mg total) by mouth daily. 30 tablet 08/22/2022 Active ondansetron ODT (ZOFRAN-ODT) 4 mg disintegrating tablet Dissolve 1 tablet (4 mg total) in the mouth every 6 (six) hours as needed for nausea or vomiting. 10 tablet 08/22/2022 Active sertraline (ZOLOFT) 100 mg tablet Take 1 tablet (100 mg total) by mouth at bedtime. 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 Inhaled Oxygen Concentration - - Weight 87.1 kg (192 lb) 08/17/2022 3:00 AM [employer]ES [employer]OUTE DRIVER HELPER Height 172.7 cm (5' 8) 08/17/2022 3:00 AM [employer]IVER HELPER Body Mass Index 29.19 08/17/2022 3:00 AM [employer] DRIVER HELPER Plan of Treatment Not on file Procedures Procedure Name Priority Date/Time Associated Diagnosis Comments EXTI CBC WITH DIFFERENTIAL, B Routine 05/11/2023 4:00 PM CDT from Last 3 Months or Most Recently Relevant to Health Maintenance Advance Directives For more information, please contact: [phone] * Full Code (Latest Code Status on File) Date Activated Date Inactivated Comments 08/17/2022 3:26 AM 08/22/2022 11:38 AM Question Answer Comments Full Code: Not Discussed Due to: Not medically appropriate Care Teams Certified Paralegal Relationship Specialty Start Date End Date None Reported, Pcp PCP - General Family Medicine 08/17/22
--- OUTSIDE RECORDS SUMMARY | 2023-12-02 04:04 | XMS_ITS | Clinical Summary ---
Author Name Unknown Organization [facility] Address [place] [address] Care Team Providers Care Snowmobile Mechanic Name Role Phone Evelia Garcia MD Primary Care Provider Allergies Active Allergy Reactions Criticality Noted Date Comments Adhesive *Unknown,*Unknown - Follow up needed 04/13/2023 Cantaloupe Chest Pain,Hives,Itching,Rash 05/15/2023 [place] And Derivatives Anaphylaxis High 12/15/2022 Grapefruit GI Upset,Rash 04/20/2022 Lactase GI Upset High 12/15/2022 Pineapple Hives,Rash Medium 03/09/2022 Radish Cough,Hives,Itching, Nausea Only,Rash Low 09/30/2014 Tomato Itching,Rash High 10/12/2022 Unlisted Allergen (Include Detail In Comments) Cough,Hives,Itching,Rash 09/30/2014 Medications Medication Sig Dispensed Refills Start Date End Date Status fluticasone (50 mcg per actuation) nasal solution (FLONASE) Inhale 1 [place] into affected nostril(s). 01/06/2023 Active loratadine (CLARITIN) 10 mg tablet Take 10 mg by mouth. 01/06/2023 Active ibuprofen (ADVIL; MOTRIN) 600 mg tablet Take 600 mg by mouth every 6 hours if needed. 04/19/2023 Active blood-glucose meterIndications:Hy poglycemia Dispense meter, test strips, lancets covered by pt ins. For Hypoglycemia. Check blood sugar when symptoms occur. 1 Each 06/13/2023 Active albuterol HFA (PRO-AIR; VENTOLIN; PROVENTIL) 90 mcg/actuation inhaler Inhale 2 Puffs by mouth every 4 hours if needed for Shortness Of Breath or Wheezing. 08/29/2023 Active hydrOXYzine HCL (ATARAX) 25 mg tabletIndications:G eneralized anxiety disorder,Bipolar II disorder (HC),Obsessive-comp ulsive disorder, unspecified type Take 1-2 tablets (25-50 mg) once daily as needed for anxiety. Do not take with Benadryl. 60 Tablet 2 10/05/2023 Active sertraline (ZOLOFT) 100 mg tabletIndications:G eneralized anxiety disorder,Bipolar II disorder (HC),Obsessive-comp ulsive disorder, unspecified type Take 1 Tablet (100 mg) by mouth once daily. 90 Tablet 10/05/2023 Active sertraline (ZOLOFT) 25 mg tabletIndications:G eneralized anxiety disorder,Bipolar II disorder (HC),Obsessive-comp ulsive disorder, unspecified type Take 1 Tablet (25 mg) by mouth once daily. Take with 100 mg tablet for total of 125 mg daily. 90 Tablet 10/05/2023 Active dextroamphetamine-a mphetamine (Adderall XR) 10 mg Extended-Release capsuleIndications: Attention deficit hyperactivity disorder (ADHD), predominantly inattentive type Take 1 Capsule (10 mg) by mouth once daily. 30 Capsule 11/04/2023 Active dextroamphetamine-a mphetamine (Adderall XR) 10 mg Extended-Release capsuleIndications: Attention deficit hyperactivity disorder (ADHD), predominantly inattentive type Take 1 Capsule (10 mg) by mouth once daily. 30 Capsule 12/04/2023 Active ondansetron (ZOFRAN ODT) 4 mg disintegrating tabletIndications:N ausea PLACE 1 TABLET (4 MG) ON THE TONGUE EVERY 8 HOURS IF NEEDED FOR NAUSEA/VOMITIN G. 30 Tablet 10/19/2023 Active polyethylene glycoL (MIRALAX) 17 gram/scoop powderIndications:C onstipation, unspecified constipation type Mix 1 scoop (17 g) in liquid then take by mouth once daily if needed for Constipation. 510 g 11/09/2023 Active diphenhydrAMINE (BENADRYL) 25 mg capsule Take 50 mg by mouth every 6 hours if needed. 02/24/2022 4 Discontinued (*Patient states no longer taking) dextroamphetamine-a mphetamine (Adderall XR) 10 mg Extended-Release capsuleIndications: Attention deficit hyperactivity disorder (ADHD), predominantly inattentive type Take 1 Capsule (10 mg) by mouth once daily. 30 Capsule 10/05/2023 dicyclomine (BENTYL) 10 mg capsuleIndications: Generalized abdominal pain Take 1 Capsule (10 mg) by mouth two times daily before meals. 30 Capsule 11/09/2023 4 Discontinued (*Discontinu ed by another clinician) Active Problems Problem Noted Date Diagnosed Date POTS (postural orthostatic tachycardia syndrome) 06/13/2023 Syncope and collapse 06/13/2023 Generalized anxiety disorder 10/13/2022 Attention deficit hyperactiv ity disorder (ADHD), predominantly inattentive type 10/13/2022 Controlled substance agreement signed 10/12/2022 Overview: 10/12/2022, Laith Spears NP, Psychairty Bipolar II disorder 08/26/2022 Encounters Date Type Department Care Team Description 11/11/2023 2:25 PM CDT Office Visit [facility] [address] [place] [address] Evelia Garcia MD Concerns (Troubles eating, keeping things down) 11/11/2023 Travel 11/09/2023 10:50 AM CDT Office Visit [facility] [address] [place] [address] Meche Kapoor, ER Follow up (Was struggling to keep liquids and solids down. Started 2 weeks ago. Got IV fluids at 11/02. Has ARFID and anorexia, but food intake has improved in the last week. Using DF meal replacement shakes as well) 11/09/2023 Travel 11/07/2023 Travel 11/03/2023 Travel 11/02/2023 Nurse Triage [facility] [address] [place] [address] Evelia Garcia MD Vomiting 10/19/2023 Refill [facility] [address] [place] [address] Evelia Garcia MD Refill Request (Ondansetron) 10/06/2023 10:50 AM PUBLIC RELATIONS ANALYST Office Visit [facility] [address] [place] [address] Evelia Garcia MD Follow Up 10/05/2023 10:45 AM PUBLIC RELATIONS ANALYST Office Visit [facility] [address] [place] [address] Shila Spears, RONY Medication Management (Has been very anxious for the last two month, was on medical leave due to medical issue,/Is taking Vistaril 25-50 mg to help sleep for about 2 months) 10/05/2023 Travel 10/01/2023 Travel 09/21/2023 Orders Only [facility] Scanner 1 scan: (1-Ord) [facility], CT ABDOMEN PELVIS W CON, 09/21/2023 from Last 3 Months Immunizations Name Administration Dates Next Due COVID-19 Vaccine Spikevax (M oderna 50mcg/0.5mL) 12YO+ 7926-2078 Formula PF 05/11/2023 COVID-19 vaccine ([employer] NTech 30mcg/0.3mL) 12YO+ BIVALENT PF, MDV 04/20/2022 DTaP 04/24/2008, 6,03/30/2005,09/08,2003,2003 HIB-HepB (Comvax) 11/11/2004 HPV 9 (Gardasil 9) 05/08/2015 Hepatitis A (Peds) 11/22/2006,04/07/2006 Hepatitis B (Peds) 11/11/2004,09/08/2004, 004 Hib Conjugate, Unspecified 11/11/2004,09/08/2004 ,2003 Human Papilloma Virus Vaccine 01/06/2015, 015 Inactivated Polio Vaccine 04/24/2008,,09/08/2004,12/24 Influenza Virus, Unspecified 07/29/2022,06/05/20 19,09/06/2017 Influenza, IIV4 05/05/2023 Influenza,LAIV4 Live Intrana leo (Flumist) 06/04/2015 MMR 04/24/2008,11/11/2004 Meningococcal Vaccine (Menactra) 04/16/2020,0603/2015 Pneumococcal conj 7-Valent (Prevnar 7) 1 2004,03/30/2005,09/08/2004,12/24 Tdap 09/25/2014 Varicella Vaccine 04/24/2008,11/11/2004 Social History Tobacco Use Types Packs/Day Years Used Date Smoking Tobacco: Never Passive Smoke Exposure: Never Smokeless Tobacco: Never Tobacco Cessation:Counseling Given: Yes Alcohol Use Standard Drinks/Week Comments Yes 0 (1 standard drink = 0.6 oz pur e alcohol) rare PHQ-2 Answer Date Recorded PHQ-2 TOTAL SCORE 4 10/04/2023 Social Connections Answer Date Recorded Frequency of Communication with Friends and Fami ly 4 10/01/2023 Financial Resource Strain Answer Date R ecorded Difficulty of Paying Living Expenses 3 10/01/2023 Difficulty of Paying Living Expenses Not on file 10/01/2023 Food Insecurity Answer Date Recorded Worried About Running Out of Food in the Last Ye ar 1 10/01/2023 Transportation Needs Answer Date Record ed Lack of Transportation (Medical) 1 10/01/2023 Housing Stability Answer Date Recorded Unable to Pay for Housing in the Last Year 1 10/01/2023 Sex and Gender Information Value Date Recorded Sex Assigned at Female 08/31/2022 10:12 AM PUBLIC RELATIONS ANALYST Gender Identity nonbinary 09/04/2022 11:21 PM PUBLIC RELATIONS ANALYST Sexual Orientation Not on file Obstetrics History Last Filed Vital Signs Vital Sign Reading Time Taken Comments Blood Pressure 118/78 11/11/2023 2:26 PM CDT Pulse 75 11/11/2023 2:26 PM CDT Temperature 36.7 ??C (98 ??F) 08/26/2022 2:13 PM PUBLIC RELATIONS ANALYST Respiratory Rate - - Oxygen Saturation 98% 11/11/2023 2:26 PM CDT Inhaled Oxygen Concentration - - Weight 111.8 kg (246 lb 6.4 oz) 11/11/2023 2:26 PM CDT Height 174 cm (5' 8.5) 04/22/2023 8:44 AM CDT Body Mass Index - - Plan of Treatment Health Maintenance Due Date Last Done Comments Well Child Check for age 3-20 08/12/2006 HIV for age 15-65 2018 Chlamydia for age 16-24 2019 Hepatitis C screening for age 18-79 2021 Influenza for age 9-49 04/01/2024 , 07/29/2022, 06/05/2019, Additional history exists BMI (ht and wt on same day) for age 18+ 04/22/2024 04/22/2023, 11/09/2022, 04/20/2022 Tetanus booster 09/25/2024 09/25/2014 Depression screening for age 12+ 10/05/2024 10/06/2023, 10/05/2023, 10/04/2023, Additional history exists Pneumococcal series for age 6-64 Aged Out 07/12/2005, 03/30/2005, 09/08/2004, Additional history exists No longer eligible based on patient's age to complete this topic Tdap Completed 09/25/2014 HPV series for age 9-26 Completed 05/08/20 15, 01/06/2015, 09/25/2014 HPV series for age 9-26 Completed 05/08/20 15, 01/06/2015, 09/25/2014 Meningococcal series for age 11-21 Completed 04/16/2020, 01/06/2015 COVID-19 vaccine series Completed 05/11/20 23, 04/20/2022, 08/26/2021, Additional history exists Procedures Procedure Name Priority Date/Time Associated Diagnosis Comments STREP A PCR Routine 10/06/2023 11:00 AM PUBLIC RELATIONS ANALYST Fever, unspecified fever cause THROAT RAPID STREP A WITH REFLEX Routine 10/06/2023 11:00 AM PUBLIC RELATIONS ANALYST Fever, unspecified fever cause SCAN-CT INTERPRETATION 12:00 AM PUBLIC RELATIONS ANALYST from Last 3 Months Results * STREP A PCR (10/06/2023 11:00 AM PUBLIC RELATIONS ANALYST) Pathologist [facility] A STREP Negative 10/06/2023 9:40 PM PUBLIC RELATIONS ANALYST [facility] Throat SPECIMEN FROM THROAT / Unknown Non-Blood / Unknown 10/06/2023 11:00 AM PUBLIC RELATIONS ANALYST 10/06/2023 11:12 AM PUBLIC RELATIONS ANALYST Evelia Garcia MD MICROBIOLOGY [facility] [address] [place] [address], [place] * THROAT RAPID STREP A WITH REFLEX (10/06/2023 11:00 AM PUBLIC RELATIONS ANALYST) STREP A ANTIGEN Negative 10/06/2023 11:12 AM PUBLIC RELATIONS ANALYST [facility] Comment:PCR to follow. Throat SPECIMEN FROM THROAT / Unknown Non-Blood / Unknown 10/06/2023 11:00 AM PUBLIC RELATIONS ANALYST 10/06/2023 11:04 AM PUBLIC RELATIONS ANALYST Evelia Garcia MD MICROBIOLOGY Performing Organization Address [facility] Co de Phone Number [facility] [address] [place] [address], * SCAN-CT INTERPRETATION (09/21/2023 12:00 AM PUBLIC RELATIONS ANALYST) Anatomical Region Laterality Modality Other Scanner OTHER from Last 3 Months Care Teams Snowmobile Mechanic Relationship Specialty Start Date End Date Evelia Garcia MD [address] [place] [address] PCP - General Family Practice 08/06/22
--- OUTSIDE RECORDS SUMMARY | 2023-12-02 04:04 | XMS_ITS | Clinical Summary ---
Author Name Unknown Organization [facility] Address [address] [place] [address] Care Team Providers Care Underwriter Mortgage Loan Name Role Phone None Reported, Pcp Primary Care Provider Unavail able Source Comments Patient records contain information from all sites at [facility]. For routine questions regarding patient records, call [phone] during business hours, M-F 8:00 AM - 5:00 PM Central Time. Record requests for emergency care only can be directed to [phone] at any time.[facility] Allergies Active Allergy Reactions Criticality Noted Date [...] Comments Blood Pressure 107/55 08/22/2022 6:45 AM PLASTER LATHER Pulse 58 08/22/2022 6:45 AM PLASTER LATHER Temperature 36.3 ??C (97.3 ??F) 08/22/2022 6:45 AM CS T Respiratory Rate 16 08/22/2022 6:45 AM PLASTER LATHER Oxygen Saturation 99% 08/22/2022 6:45 AM PLASTER LATHER Inhaled Oxygen Concentration - - Weight 87.1 kg (192 lb) 08/17/2022 3:00 AM PLASTER LATHER Height 172.7 cm (5' 8) 08/17/2022 3:00 AM PLASTER LATHER Body Mass Index 29.19 08/17/2022 3:00 AM PLASTER LATHER Plan of Treatment Health Maintenance Due Date [...] 08/12/2021 17 year Well Child Check-Up 08/12/2022 Depression Screening (Annual PHQ-2) 08/01/2023 18 year [...] 03/2015, 09/25/2014 Meningococcal Vaccine Completed 04/16/2020, 015 Influenza Vaccine Completed 05/05/2023, , 06/05/2019, Additional history exists Anemia/Iron Deficiency Screening During Well Child Visit (if High Risk Menstruating Female) Completed 05/11/2023, 04/20/2023, 08/18/2022, Additional history exists COVID-19 Vaccine Completed 05/11/2023, 04/20/2022 Procedures Procedure Name Priority Date/Time Associated Diagnosis Comments EXTI CBC WITH DIFFERENTIAL, B Routine 05/11/2023 4:00 PM CDT from Last 3 Months or Most Recently Relevant to Health Maintenance Advance Directives For more information, please contact: [phone] * Full Code (Latest Code Status on File) Date Activated Date Inactivated Comments 08/17/2022 3:26 AM 08/22/2022 11:38 AM Question Answer Comments Full Code: Not Discussed Due to: Not medically appropriate Care Teams Underwriter Mortgage Loan Relationship Specialty Start Date End Date None Reported, Pcp PCP - General Family Medicine 08/17/22
== END 2023-11-20 19:33 | disposition home or self-care (01) ==
LOC: AMB 12-02 04:02
PROVIDERS: PCP Family Medicine; Visit Provider Family Medicine
DX: R55 Syncope and collapse (principal)
CPT/HCPCS: A0998

== ENCOUNTER 2023-11-20 21:00 | Outpatient (CLI) | payer OTHER, SELFPAY | END 2023-11-20 21:01 | disposition home or self-care (01) | LOC: AMB 12-02 04:04 | PROVIDERS: PCP Family Medicine; Visit Provider Family Medicine | DX: R55 Syncope and collapse (principal) | CPT/HCPCS: A0998 ==

== ENCOUNTER 2024-05-15 22:02 | Outpatient (CLI) | payer MEDICAID, SELFPAY ==
--- OUTSIDE RECORDS SUMMARY | 2024-05-31 15:11 | XMS_ITS | Referral Summary ---
Author Organization [facility] Address [address] [place] [address] Care Team Providers Care Agricultural Equipment Mechanic Name Role Phone None Reported, Pcp Primary Care Provider Unavail able Source Comments Patient records contain information from all sites at [facility]. For routine questions regarding patient records, call [phone] during business hours, M-F 8:00 AM - 5:00 PM Central Time. Record requests for emergency care only can be directed to [phone] at any time.[facility] Allergies Active Allergy Reactions Criticality Noted Date Comments Grapefruit Rash,GI intolerance Medium 04/20/2022 Milk GI intolerance Medium 11/29/2019 Pineapple Rash Medium 07/05/2022 Medications * This document contains information received from the source organization and may not represent a complete record from that organization. diphenhydrAMINE (BENADRYL) 25 mg capsule Take 50 mg by mouth every 6 (six) hours as needed for itching. 2 Active fluticasone propionate (FLONASE) 50 mcg/actuation nasal spray Administer 1 spray into each nostril daily. 2 Active ibuprofen (ADVIL,MOTRIN) 400 mg tablet Take 400 mg by mouth every 8 (eight) hours as needed. 0 Active levonorgestreL-eth inyl estrad (AVIANE,ALESSE,LES CHAI) 0.1-20 mg-mcg per tablet Take 1 tablet by mouth daily. 9 Active melatonin 5 mg tablet Take 5 mg by mouth at bedtime as needed. Active divalproex (DEPAKOTE ER) 500 mg 24 hr tablet Take 1 tablet (500 mg total) by mouth daily. 30 tablet 3 Active ondansetron ODT (ZOFRAN-ODT) 4 mg disintegrating tablet Dissolve 1 tablet (4 mg total) in the mouth every 6 (six) hours as needed for nausea or vomiting. 10 tablet 3 Active sertraline (ZOLOFT) 100 mg tablet Take 1 tablet (100 mg total) by mouth at bedtime. 30 tablet 3 Active Active Problems Problem Noted Date Diagnosed [...] Date Recorded Dental: Regular Dentist Unknown 08/17/19 23 Comments No Sex and Gender Information Value Date Recorded Sex Assigned at Not on file Legal Sex Female 12:49 AM ANIMAL STUNNER Gender Identity Not on file Sexual Orientation Not on file Last Filed Vital Signs Vital Sign Reading Time Taken Comments Blood Pressure 107/55 08/22/2022 6:45 AM ANIMAL STUNNER Pulse 58 08/22/2022 6:45 AM ANIMAL STUNNER Temperature 36.3 ??C (97.3 ??F) 08/22/2022 6:45 AM CS T Respiratory Rate 16 08/22/2022 6:45 AM ANIMAL STUNNER Oxygen Saturation 99% 08/22/2022 6:45 AM ANIMAL STUNNER Inhaled Oxygen Concentration - - Weight 87.1 kg (192 lb) 08/17/2022 3:00 AM ANIMAL STUNNER Height 172.7 cm (5' 8) 08/17/2022 3:00 AM ANIMAL STUNNER Body Mass Index 29.19 08/17/2022 3:00 AM ANIMAL STUNNER Plan of Treatment Not on file Procedures Procedure Name Priority Date/Time Associated Diagnosis Comments CBC WITH DIFFERENTIAL, B Routine 08/18/2022 5:29 AM ANIMAL STUNNER from Last 3 Months or Most Recently Relevant to Health Maintenance Results * (ABNORMAL) CBC with Differential, Blood (08/18/2022 5:29 AM ANIMAL STUNNER) Hemoglobin 11.1(L) 11.6 - 15.0 g/dL 08/18/2022 5:39 AM ANIMAL STUNNER RUSSELL Hematocrit 35.9 35.5 - 44.9 % 08/18/2022 5:39 AM ANIMAL STUNNER RUSSELL Erythrocytes 3.75(L) 3.92 - 5.13 x10(12)/L 08/18/2022 5:39 AM ANIMAL STUNNER RUSSELL MCV 95.7 78.2 - 97.9 fL 08/18/2022 5:39 AM ANIMAL STUNNER RUSSELL RBC Distrib Width 11.7(L) 12.2 - 16.1 % 08/18/2022 5:39 AM ANIMAL STUNNER RUSSELL Platelet Count 246 157 - 371 x10(9)/L 08/18/2022 5:39 AM ANIMAL STUNNER RUSSELL Leukocytes 5.2 3.4 - 9.6 x10(9)/L 08/18/2022 5:39 AM ANIMAL STUNNER RUSSELL Neutrophils 1.22(L) 1.56 - 6.45 x10(9)/L 08/18/2022 5:39 AM ANIMAL STUNNER RUSSELL Lymphocytes 3.52(H) 0.95 - 3.07 x10(9)/L 08/18/2022 5:39 AM ANIMAL STUNNER RUSSELL Monocytes 0.36 0.26 - 0.81 x10(9)/L 08/18/2022 5:39 AM ANIMAL STUNNER RUSSELL Eosinophils 0.09 0.03 - 0.48 x10(9)/L 08/18/2022 5:39 AM ANIMAL STUNNER RUSSELL Basophils <0.03 0.01 - 0.08 x10(9)/L 08/18/2022 5:39 AM ANIMAL STUNNER RUSSELL Blood (Blood, Venous) 08/18/2022 5:29 AM ANIMAL STUNNER 08/18/2022 5:37 AM ANIMAL STUNNER us Fidel Morton M.D. LAB BLOOD ADD-ON Final Resul t [facility] [place] [address] [place] [address], [facility] [address] [facility] [place] [address] from Last 3 Months or Most Recently Relevant to Health Maintenance [place] [address] [place] [address] Advance Directives For more information, please contact: [phone] * Full Code (Latest Code Status on File) Date Activated Date Inactivated Comments 08/17/2022 3:26 AM 08/22/2022 11:38 AM Question Answer Comments Full Code: Not Discussed Due to: Not medically appropriate Care Teams Agricultural Equipment Mechanic Relationship Specialty Start Date End Date None Reported, Pcp PCP - General Family Medicine 08/17/22
--- OUTSIDE RECORDS SUMMARY | 2024-05-31 15:11 | XMS_ITS ---
Author Organization [facility] Address [facility] [address] [place] [address] Care Team Providers Care Certified Medical Asst Name Role Phone Unavailable Unavailable Unavailable Surgery Details Not on file Complications Check Surgery Details section. Procedure Estimated Blood Loss Check Surgery Details section. Procedure Findings Check Surgery Details section. Procedure Specimens Taken Check Surgery Details section.
--- OUTSIDE RECORDS SUMMARY | 2024-05-31 15:11 | XMS_ITS | Clinical Summary ---
Author Organization [facility] Address [address] [place] [id number] Care Team Providers Care Nail Making Machine Setter Name Role Phone None Reported, Pcp Primary Care Provider Unavail able Source Comments Patient records contain information from all sites at [facility]. For routine questions regarding patient records, call [phone] during business hours, M-F 8:00 AM - 5:00 PM Central Time. Record requests for emergency care only can be directed to [phone] at any time.[facility] Allergies Active Allergy Reactions Criticality Noted Date [...] on file Legal Sex Female 12:49 AM DOG CONTROL OFFICER Gender Identity Not on file Sexual Orientation Not on file Last Filed Vital Signs Vital Sign Reading Time Taken Comments Blood Pressure 107/55 08/22/2022 6:45 AM DOG CONTROL OFFICER Pulse 58 08/22/2022 6:45 AM DOG CONTROL OFFICER Temperature 36.3 ??C (97.3 ??F) 08/22/2022 6:45 AM CS T Respiratory Rate 16 08/22/2022 6:45 AM DOG CONTROL OFFICER Oxygen Saturation 99% 08/22/2022 6:45 AM DOG CONTROL OFFICER Inhaled Oxygen Concentration - - Weight 87.1 kg (192 lb) 08/17/2022 3:00 AM DOG CONTROL OFFICER Height 172.7 cm (5' 8) 08/17/2022 3:00 AM DOG CONTROL OFFICER Body Mass Index 29.19 08/17/2022 3:00 AM DOG CONTROL OFFICER Plan of Treatment Health Maintenance Due Date Last Done Comments Chlamydia and Gonorrhea Screening 2003 HIV Screening 2003 Hearing Screening during Well Child Visit 2003 Hepatitis C Screening 2003 TB Screening during Well Child Visit 2003 Tobacco Cessation counseling 2003 1 week [...] Check-Up 08/12/2023 Well Child Check-Up (WCC) 08/12/2023 COVID-19 Vaccine (3 - season) 2024 05/11/2023, 04/20/2022 Influenza Vaccine (#1) 2024 , 07/29/2022, 06/05/2019, Additional history exists DTaP,Tdap,and Td Vaccines (7 - Td or Tdap) 09/25/2024 09/25/2014, 04/24/2008, 04/07/2006, Additional history exists Pneumococcal vaccine (0-64 years) Aged Out 07/12/2005, 03/30/2005, 09/08/2004, Additional history exists No longer eligible based on patient's age to complete this topic IPV Vaccines Completed 04/24/2008, 10/30, 09/08/2004, Additional history exists HPV Vaccines Completed 05/08/2015, 03/2015, 09/25/2014 Meningococcal Vaccine Completed 04/16/2020, 015 Anemia/Iron Deficiency Screening During Well Child Visit (if High Risk Menstruating Female) Completed 05/11/2023, 04/20/2023, 08/18/2022, Additional history exists Procedures Procedure Name Priority Date/Time Associated Diagnosis Comments CBC WITH DIFFERENTIAL, B Routine 08/18/2022 5:29 AM DOG CONTROL OFFICER from Last 3 Months or Most Recently Relevant to Health Maintenance Results * (ABNORMAL) CBC with Differential, Blood (08/18/2022 5:29 AM DOG CONTROL OFFICER) Hemoglobin 11.1(L) 11.6 - 15.0 g/dL 08/18/2022 5:39 AM DOG CONTROL OFFICER RUSSELL Hematocrit 35.9 35.5 - 44.9 % 08/18/2022 5:39 AM DOG CONTROL OFFICER RUSSELL Erythrocytes 3.75(L) 3.92 - 5.13 x10(12)/L 08/18/2022 5:39 AM DOG CONTROL OFFICER RUSSELL MCV 95.7 78.2 - 97.9 fL 08/18/2022 5:39 AM DOG CONTROL OFFICER RUSSELL RBC Distrib Width 11.7(L) 12.2 - 16.1 % 08/18/2022 5:39 AM DOG CONTROL OFFICER RUSSELL Platelet Count 246 157 - 371 x10(9)/L 08/18/2022 5:39 AM DOG CONTROL OFFICER RUSSELL Leukocytes 5.2 3.4 - 9.6 x10(9)/L 08/18/2022 5:39 AM DOG CONTROL OFFICER RUSSELL Neutrophils 1.22(L) 1.56 - 6.45 x10(9)/L 08/18/2022 5:39 AM DOG CONTROL OFFICER RUSSELL Lymphocytes 3.52(H) 0.95 - 3.07 x10(9)/L 08/18/2022 5:39 AM DOG CONTROL OFFICER RUSSELL Monocytes 0.36 0.26 - 0.81 x10(9)/L 08/18/2022 5:39 AM DOG CONTROL OFFICER RUSSELL Eosinophils 0.09 0.03 - 0.48 x10(9)/L 08/18/2022 5:39 AM DOG CONTROL OFFICER RUSSELL Basophils <0.03 0.01 - 0.08 x10(9)/L 08/18/2022 5:39 AM DOG CONTROL OFFICER RUSSELL Blood (Blood, Venous) 08/18/2022 5:29 AM DOG CONTROL OFFICER 08/18/2022 5:37 AM DOG CONTROL OFFICER Fidel Morton M.D. LAB BLOOD ADD-ON Final Resul t [facility] [address] [address], [facility] RUSSELL [place] [facility] [address] [place] [address] from Last 3 Months or Most Recently Relevant to Health Maintenance Insurance [facility] Advance Directives For more information, please contact: [phone] * Full Code (Latest Code Status on File) Date Activated Date Inactivated Comments 08/17/2022 3:26 AM 08/22/2022 11:38 AM Question Answer Comments Full Code: Not Discussed Due to: Not medically appropriate Care Teams Nail Making Machine Setter Relationship Specialty Start Date End Date None Reported, Pcp PCP - General Family Medicine 08/17/22
--- OUTSIDE RECORDS SUMMARY | 2024-05-31 15:11 | XMS_ITS | Clinical Summary ---
Author Organization [email or web address] [facility] Address [place] [address] Care Team Providers Care Benefits Analyst Name Role Phone Evelia Garcia MD Primary Care Provider [phone] Allergies Active Allergy Reactions Criticality Noted Date Comments Adhesive *Unknown,*Unknown - Follow up needed 04/13/2023 Cantaloupe Chest Pain,Hives,Itching,Rash 05/15/2023 Hartley And Derivatives Anaphylaxis High 12/15/2022 Grapefruit GI Upset,Rash 04/20/2022 Lactase GI Upset High 12/15/2022 Pineapple Hives,Rash Medium 03/09/2022 Radish Cough,Hives,Itching, Nausea Only,Rash Low 09/30/2014 Tomato Itching,Rash High 10/12/2022 Unlisted Allergen (Include Detail In Comments) Cough,Hives,Itching,Rash 09/30/2014 Medications Medication Sig Dispensed Refills Start Date End Date Status fluticasone (50 mcg per actuation) nasal solution (FLONASE) Inhale 1 [place] into affected nostril(s). 01/06/2023 Active loratadine (CLARITIN) [...] Shortness Of Breath or Wheezing. 08/29/2023 Active ondansetron (ZOFRAN ODT) 4 mg disintegrating tabletIndications:N ausea PLACE 1 TABLET (4 MG) ON THE TONGUE EVERY 8 HOURS IF NEEDED FOR NAUSEA/VOMITING . 30 Tablet 10/19/2023 Active polyethylene glycoL (MIRALAX) 17 gram/scoop powderIndications:C onstipation, unspecified constipation type Mix 1 scoop (17 g) in liquid then take by mouth once daily if needed for Constipation. 510 g 11/09/2023 Active OneTouch Ultra Test strip TEST DIRECTED 06/13/2023 Active Aerochamber MV Use as instructed 02/03/2024 Active OneTouch Delica Plus Lancet 33 gauge misc DIRECTED CHECK BLOOD SUGAR WHEN SYMPTOMS OCCUR 06/13/2023 Active hydrOXYzine HCL (ATARAX) 50 mg tabletIndications:G eneralized anxiety disorder,Bipolar II disorder (HC) Take 1 tablet (50 mg) by mouth twice daily as needed for anxiety/sleep. 90 Tablet 1 05/01/2024 Active sertraline (ZOLOFT) 25 mg tabletIndications:G eneralized anxiety disorder,Bipolar II disorder (HC) Take 1 Tablet (25 mg) by mouth once daily. Take with 100 mg tablet for total of 125 mg daily. 90 Tablet 05/01/2024 Active sertraline (ZOLOFT) 100 mg tabletIndications:G eneralized anxiety disorder,Bipolar II disorder (HC) Take 1 Tablet (100 mg) by mouth once daily. 90 Tablet 05/01/2024 Active sucralfate (CARAFATE) 1 gram tabletIndications:C hronic constipation,Abdomi nal pain, generalized Take 1 Tablet (1 g) by mouth four times daily before meals and at bedtime. 120 Tablet 05/10/2024 Active methylphenidate (Concerta) 18 mg extended-release tabletIndications:A ttention deficit hyperactivity disorder (ADHD), predominantly inattentive type Take 1 Tablet (18 mg) by mouth once daily. 30 Tablet 05/30/2024 Active famotidine (PEPCID) 20 mg tabletIndications:D ysphagia, unspecified type Take 1 Tablet (20 mg) by mouth two times daily. 60 Tablet 04/19/2024 4 Discontinue d(*Med complete/Re gimen complete/[place] of care change) methylphenidate (Concerta) 36 mg extended-release tabletIndications:A ttention deficit hyperactivity disorder (ADHD), predominantly inattentive type Take 1 Tablet (36 mg) by mouth once daily. 30 Tablet 05/01/2024 4 Discontinue d(*Medicati on adjustment) methylphenidate (Concerta) 36 mg extended-release tabletIndications:A ttention deficit hyperactivity disorder (ADHD), predominantly inattentive type Take 1 Tablet (36 mg) by mouth once daily. 30 Tablet 05/31/2024 4 Discontinue d(*Medicati on adjustment) methylphenidate (Concerta) 36 mg extended-release tabletIndications:A ttention deficit hyperactivity disorder (ADHD), predominantly inattentive type Take 1 Tablet (36 mg) by mouth once daily. 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 [address] [place] [address] MilviaJose Manuel angulo DO Seizure-like activity (HC) (Primary Dx); Nausea and vomiting, unspecified vomiting type; Gastrointestinal symptoms Discharge Disposition: Home Self Care 05/10/2024 2:25 PM CDT Office Visit [facility] [address] [place] [address] Evelia Garcia MD Follow Up (Fainting/eating) 05/09/2024 Travel 05/03/2024 9:45 AM CDT Ancillary Procedure [facility] [address] [place] [address] 05/03/2024 Travel 05/01/2024 1:15 PM CDT Telemedicine [facility] [address] [place] [address] Shila Spears NP Telehealth (patient is in [place]); Follow Up 04/28/2024 Travel 04/26/2024 Travel 04/19/2024 2:25 PM CDT Office Visit [facility] [address] [place] [address] Meche Kapoor DO Concerns (having pre-syncopal episodes 1-3 times a week for several months with vision changes, nausea, weakness. Interested in treatment with IV fluids. Having difficulty with temperature control. ) 04/19/2024 Travel 04/15/2024 Travel 04/05/2024 8:45 AM CDT Telemedicine [facility] [address] [place] [address] Shila Spears NP Telehealth; Medication Management (Things are going okay) 04/03/2024 Travel from Last 3 Months Immunizations Name Administration Dates Next Due COVID-19 VACCINE SPIKEVAX (M ODERNA 50MCG/0.5ML) 12YO+ PFS 05/10/2024,05/11/2023 COVID-19 vaccine (Pfizer-Bio NTech 30mcg/0.3mL) 12YO+ BIVALENT PF, MDV 04/20/2022 DTaP 04/24/2008, 6,03/30/2005,09/08,2003,2003 HIB-HepB (Comvax) 11/11/2004 HPV 9 (Gardasil 9) 05/08/2015 Hepatitis A (Peds) 11/22/2006,04/07/2006 Hepatitis B (Peds) 11/11/2004,09/08/2004, 004 Hib Conjugate, Unspecified 11/11/2004,09/08/2004 ,2003 Human Papilloma Virus Vaccine 01/06/2015, 015 INFLUENZA, IIV3 PF (AGE >= 6 MO) 05/10/2024 Inactivated Polio Vaccine 04/24/2008,,09/08/2004,12/24 Influenza Virus, Unspecified [...] Given: Yes Alcohol Use Standard Drinks/Week Comments Not Currently 0 (1 standard drink = 0.6 oz pur e alcohol) rare PHQ-2 Answer Date Recorded PHQ-2 TOTAL SCORE 4 05/29/2024 Social Connections Answer Date Recorded Do you often feel lonely or isolated from those around you? 4 10/01/2023 Financial Resource Strain Answer Date R ecorded Difficulty of Paying Living Expenses 3 10/01/2023 Difficulty of Paying Living Expenses Not on file 10/01/2023 Food Insecurity Answer Date Recorded Do you worry your food will run out before you are able to buy more? 1 10/01/2023 Transportation Needs Answer Date Record ed Does lack of transportation keep you from medica l appointments? 1 10/01/2023 Does lack of transportation keep you from work, meetings or getting things that you need? 1 10/01/2023 Housing Stability Answer Date Recorded What is your housing situation today? 1 10/01/2023 Sex and Gender Information Value Date Recorded Sex Assigned at Female 08/31/2022 10:12 AM HOME CARE SCHEDULER Gender Identity nonbinary 09/04/2022 11:21 PM HOME CARE SCHEDULER Sexual Orientation Not on file Obstetrics History Last Filed Vital Signs Vital Sign Reading Time Taken Comments Blood Pressure 118/73 05/30/2024 3:49 PM CDT Pulse 103 05/30/2024 3:49 PM CDT Temperature 37.2 ??C (99 ??F) 05/15/2024 10:50 PM CDT Respiratory Rate 16 05/16/2024 12:19 AM CDT Oxygen Saturation 97% 05/16/2024 12:19 AM CDT Inhaled Oxygen Concentration - - Weight 112 kg (247 lb) 05/30/2024 3:49 PM CDT Height 174 cm (5' 8.5) 05/15/2024 10:50 PM CDT Body Mass Index - - Plan of Treatment Upcoming Encounters Date Type Department Care Team (Late st Contact Info) Description 06/14/2024 12:45 PM HOME CARE SCHEDULER Office Visit [facility] [address] [place] [address] Evelia Garcia MD [address] [place] [address] 06/14/2024 1:30 PM HOME CARE SCHEDULER Office Visit [facility] [address] [place] [address] Brando Cooper MD [address] [place] [address] 07/02/2024 9:00 AM HOME CARE SCHEDULER Office Visit [facility] [address] [place] [address] Jesus Manuel Ruiz MD [address] [place] [address] Health Maintenance Due Date Last Done Comments Well Child Check for age 3-20 08/12/2006 HIV for age 15-65 2018 Chlamydia for age 16-24 2019 Hepatitis C screening for age 18-79 2021 BMI (ht and wt on same day) for age 18+ 04/22/2024 04/22/2023, 11/09/2022, 04/20/2022 Tetanus booster 09/25/2024 09/25/2014 Depression screening for age 12+ 05/30/2025 05/30/2024, 05/29/2024, 05/10/2024, Additional history exists Pneumococcal series for age 6-64 Aged Out 07/12/2005, 03/30/2005, 09/08/2004, Additional history exists No longer eligible based on patient's age to complete this topic Tdap Completed 09/25/2014 HPV series for age 9-26 Completed 05/08/20, 01/06/2015, 09/25/2014 HPV series for age 9-26 Completed 05/08/20, 01/06/2015, 09/25/2014 Meningococcal series for age 11-21 Completed 04/16/2020, 01/06/2015 COVID-19 vaccine series Completed 05/10/20 24, 05/11/2023, 04/20/2022, Additional history exists Influenza for age 9-49 Completed , 05/05/2023, 07/29/2022, Additional history exists Procedures Procedure Name Priority Date/Time Associated Diagnosis Comments URINALYSIS MICROSCOPIC STAT 05/15/2024 11:21 PM CDT DRUG SCREEN RAPID URINE INHOUSE STAT 05/15/2024 11:21 PM CDT UA W/ SEDIMENT EXAM REFLEXED PER CRITERIA STAT 05/15/2024 11:21 PM CDT CBC WITH AUTO DIFFERENTIAL STAT 05/15/2024 11:11 PM CDT ,SERUM STAT 05/15/2024 11:11 PM CDT TSH WITH REFLEX STAT 05/15/2024 11:11 PM CDT LACTATE VENOUS STAT 05/15/2024 11:11 PM CDT HEPATIC FUNCTION PANEL STAT 05/15/2024 11:11 PM CDT MAGNESIUM STAT 05/15/2024 11:11 PM CDT BASIC METABOLIC PANEL STAT 05/15/2024 11:11 PM CDT CBC WITH AUTO DIFFERENTIAL STAT 05/15/2024 11:11 PM CDT EKG 12 LEAD STAT 05/15/2024 11:05 PM CDT US ABDOMEN COMPLETE TREVOR 05/03/2024 1 0:15 AM CDT Right sided abdominal pain Nausea and vomiting, unspecified vomiting type CBC WITH AUTO DIFFERENTIAL Routine 04/19/2024 3:33 PM CDT HEMOGLOBIN A1C Routine 04/19/2024 3:33 PM CDT Polycystic ovaries PROLACTIN (QUEST) Routine 04/19/2024 3:3 3 PM CDT Menstrual irregularity LUTEINIZING HORMONE Routine 04/19/2024 3 :33 PM CDT Menstrual irregularity FSH Routine 04/19/2024 3:33 PM CDT Menstrual irregularity COMP METABOLIC PANEL Routine 04/19/2024 3:33 PM CDT Pre-syncope TSH WITH REFLEX Routine 04/19/2024 3:33 PM CDT Pre-syncope VITAMIN D 25 (DEFICIENCY) Routine 04/19/2024 3:33 PM CDT Vitamin D deficiency from Last 3 Months Results * DRUG ABUSE SCREEN RAPID URINE INHOUSE(ODONNELL) (05/15/2024 11:21 PM CDT) THC METABOLITES,CHAYA L Not Detected Not Detected 05/15/2024 11:52 PM CDT [facility] PCP,QUAL Not Detected Not Detected 05/15/2024 11:52 PM T [facility] COCAINE,QUAL Not Detected Not Detected 05/15/2024 11:52 PM T [facility] METHAMPHETAMINE , QUALITATIVE Not Detected Not Detected 05/15/2024 11:52 PM T [facility] OPIATES,QUAL Not Detected Not Detected 05/15/2024 11:52 PM T [facility] AMPHETAMINE, QUALITATIVE Not Detected Not Detected 05/15/2024 11:52 PM [facility] BENZODIAZEPINES ,QUAL Not Detected Not Detected 05/15/2024 11:52 PM [facility] TRICYCLICS,QUAL Not Detected Not Detected 05/15/2024 11:52 PM [facility] METHADONE, QUALITATIVE Not Detected Not Detected 05/15/2024 11:52 PM [facility] BARBITURATES,QU AL Not Detected Not Detected 05/15/2024 11:52 PM [facility] OXYCODONE, QUALITATIVE Not Detected Not Detected 05/15/2024 11:52 PM [facility] BUPRENORPHINE, QUALITATIVE Not Detected Not Detected 05/15/2024 11:52 PM [facility] Urine URINE SPECIMEN / Unknown Non-Blood / Unknown 05/15/2024 11:21 PM CDT 05/15/2024 11:39 PM CDT [facility] - 05/15/2024 11:52 PM CDT Please Note: ?? This is a screening test only, all results are unconfirmed and should be used for medical purposes only. ??Unconfirmed results must not be used for non-medical purposes (e.g., employment testing, legal testing). ??Suggest analyte specific confirmation for all non-negative results. ??Specimens will be held for 24 hours if additional testing is needed. ?? The following threshold concentrations are used for this analysis: ? Drug ? Screening Threshold ? Buprenorphine ? 10 ng/mL PCP ? 25 ng/mL ?? THC Metabolites ? 50 ng/mL *Opiates ? 100 ng/mL Oxycodone ?100 ng/mL Cocaine ?150 ng/mL Benzodiazepines ?150 ng/mL ?? Methadone ?200 ng/mL ?? Barbiturates ? 200 ng/mL Tricyclic Antidepressants ?300 ng/mL ?? Amphetamines ? 500 ng/mL ?? Methamphetamines ? 500 ng/mL ?*Includes related compounds: ? Codeine ?50 ng/mL ? Heroin ?100 ng/mL ? Morphine ?100 ng/mL ? Hydrocodone ? 400 ng/mL ? Hydromorphone ? 800 ng/mL ?Venlafaxine (Effexor) is a known cross reactant in the PCP ?assay. ??If clinically indicated, order PCP confirmation. Jose Manuel Steel DO URINE Performing Organization Address City/[facility]/ZIP Co de Phone Number [facility] [address] [place] [address] * (ABNORMAL) URINALYSIS MICROSCOPIC (05/15/2024 11:21 PM CDT) RBC 0-2 0-2, None Seen /HPF 05/15/2024 11:47 PM CDT [facility] WBC 0-2 0-2, 3-5, None Seen /HPF 05/15/2024 11:47 PM CDT [facility] BACTERIA Moderate(A) None Seen, Rare, Few Bacteria/ HPF 05/15/2024 11:47 PM CDT [facility] EPITHELIAL CELLS Few None Seen, Few Epi/HPF 05/15/2024 11:47 PM CDT [facility] Mucus Present 05/15/2024 11:47 PM CDT [facility] AMORPHOUS Present(A) (none) 05/15/2024 11:47 PM CDT [facility] Urine URINE SPECIMEN / Unknown Non-Blood / Unknown 05/15/2024 11:21 PM CDT 05/15/2024 11:39 PM CDT Jose Manuel Steel DO URINE Performing Organization Address City/[facility]/ZIP Co de Phone Number [facility] [address] [place], [place] [id number] * (ABNORMAL) URINALYSIS W REFLEX MICROSCOPIC IF POSITIVE (05/15/2024 11:21 PM CDT) COLOR Yellow Yellow Color 05/15/2024 11:47 PM CDT [facility] CLARITY Slightly Cloudy(A) Clear Clarity 05/15/2024 11:47 PM [facility] SPECIFIC GRAVITY,URINE 1.025 1.010, 1.015, 1.020, 1.025 05/15/2024 11:47 PM [facility] PH,URINE 8.0 6.0, 7.0, 8.0, 5.5, 6.5, 7.5, 8.5 05/15/2024 11:47 PM [facility] UROBILINOGEN, QUALITATIVE Normal Normal EU/dl 05/15/2024 11:47 PM [facility] PROTEIN, URINE Negative Negative mg/dL 05/15/2024 11:47 PM [facility] GLUCOSE, URINE Negative Negative mg/dL 05/15/2024 11:47 PM [facility] KETONES,URINE Negative Negative mg/dL 05/15/2024 11:47 PM [facility] BILIRUBIN,URI NE Negative Negative 05/15/2024 11:47 PM [facility] OCCULT BLOOD,URINE Negative Negative 05/15/2024 11:47 PM [facility] NITRITE Negative Negative 05/15/2024 11:47 PM [facility] LEUKOCYTE ESTERASE Negative Negative 05/15/2024 11:47 PM [facility] Urine URINE SPECIMEN / Unknown Non-Blood / Unknown 05/15/2024 11:21 PM CDT 05/15/2024 11:39 PM T Jose Manuel Steel DO URINE Performing Organization Address [facility]/State/ZIP Co de Phone Number [facility] [address] [place] [address] * (ABNORMAL) CBC WITH AUTO DIFFERENTIAL (05/15/2024 11:11 PM CDT) Only the most recent of2 resultswithin the time period is included. WHITE BLOOD COUNT 7.0 4.5 - 11.0 thou/cu mm 05/15/2024 11:18 PM [facility] RED BLOOD COUNT 4.07 4.00 - 5.20 mil/cu mm 05/15/2024 11:18 PM [facility] HEMOGLOBIN 12.3 12.0 - 16.0 g/dL 05/15/2024 11:18 PM [facility] HEMATOCRIT 37.3 33.0 - 51.0 % 05/15/2024 11:18 PM [facility] MCV 92 80 - 100 fL 05/15/2024 11:18 PM [facility] MCH 30.2 26.0 - 34.0 pg 05/15/2024 11:18 PM [facility] MCHC 33.0 32.0 - 36.0 g/dL 05/15/2024 11:18 PM [facility] RDW 11.4(L) 11.5 - 15.5 % 05/15/2024 11:18 PM [facility] PLATELET COUNT 259 140 - 440 thou/cu mm 05/15/2024 11:18 PM [facility] MPV 10.8 6.5 - 11.0 fL 05/15/2024 11:18 PM [facility] % NEUT 43.2 % 05/15/2024 11:18 PM [facility] % LYMPH 45.9 % 05/15/2024 11:18 PM [facility] % MONO 9.4 % 05/15/2024 11:18 PM [facility] % EOS 1.4 % 05/15/2024 11:18 PM [facility] % BASO 0.1 % 05/15/2024 11:18 PM [facility] ABSOLUTE NEUTROPHILS 3.0 1.7 - 7.0 thou/cu mm 05/15/2024 11:18 PM [facility] ABSOLUTE LYMPHOCYTES 3.2(H) 0.9 - 2.9 thou/cu mm 05/15/2024 11:18 PM [facility] ABSOLUTE MONOCYTES 0.7 <0.9 thou/cu mm 05/15/2024 11:18 PM [facility] ABSOLUTE EOSINOPHILS 0.1 <0.5 thou/cu mm 05/15/2024 11:18 PM CDT [facility] ABSOLUTE BASOPHILS 0.0 <0.3 thou/cu mm 05/15/2024 11:18 PM CDT [facility] Blood BLOOD SPECIMEN / Unknown Butterfly / Unknown 05/15/2024 11:11 PM CDT 05/15/2024 11:15 PM CDT Jose Manuel Steel DO HEMATOLOGY Performing Organization Address City/[facility]/ZIP Co de Phone Number [facility] [address] [place] [address] * LACTATE VENOUS (05/15/2024 11:11 PM CDT) LACTATE,VENOUS 1.4 0.5 - 2.0 mmol/L 05/15/2024 11:33 PM CDT [facility] Blood BLOOD SPECIMEN / Unknown Butterfly / Unknown 05/15/2024 11:11 PM CDT 05/15/2024 11:15 PM CDT Jose Manuel Steel DO CHEMISTRY Performing Organization Address [facility] Co de Phone Number [facility] [address] [place] [address] * TSH WITH REFLEX (05/15/2024 11:11 PM CDT) Only the most recent of2 resultswithin the time period is included. TSH 2.33 0.27 - 4.20 uIU/mL 05/15/2024 11:42 PM CDT [facility] Blood BLOOD SPECIMEN / Unknown Butterfly / Unknown 05/15/2024 11:11 PM CDT 05/15/2024 11:15 PM CDT Narrative [facility] - 05/15/2024 11:42 PM CDT In Adults, TSH values between 5.00 and 10.00 uIU/ml do not necessarily indicate the presence of Hypothyroidism. Correlation with clinical findings such as presence of goiter and/or Thyroperoxidase (TPO) Antibody may be helpful. For more information please refer to ISAK 2004; 291: 228-238. Jose Manuel Steel DO CHEMISTRY Performing Organization Address City/[facility]/ZIP Co de Phone Number [facility] [address] [place] [address] * ,SERUM (05/15/2024 11:11 PM CDT) ,SERU M Negative Negative 05/15/2024 11:27 PM CDT [facility] Blood BLOOD SPECIMEN / Unknown Butterfly / Unknown 05/15/2024 11:11 PM CDT 05/15/2024 11:15 PM CDT Jose Manuel Steel DO CHEMISTRY Performing Organization Address [facility] Co de Phone Number [facility] [address] [place] [address] * MAGNESIUM (05/15/2024 11:11 PM CDT) Pathologist [facility] MAGNESIUM 1.8 1.6 - 2.6 mg/dL 05/15/2024 11:42 PM CDT [facility] Blood BLOOD SPECIMEN / Unknown Butterfly / Unknown 05/15/2024 11:11 PM CDT 05/15/2024 11:15 PM CDT Jose Manuel Steel DO CHEMISTRY Performing Organization Address [facility]/ZIP Co de Phone Number [facility] [address] [place] [address] * (ABNORMAL) HEPATIC FUNCTION PANEL (05/15/2024 11:11 PM CDT) ALBUMIN 4.5 4.0 - 4.9 g/dL 05/15/2024 11:42 PM CDT [facility] PROTEIN,TOTAL 7.6 6.0 - 8.0 g/dL 05/15/2024 11:42 PM CDT [facility] BILIRUBIN,TOTAL 0.2 0.0 - 1.2 mg/dL 05/15/2024 11:42 PM T [facility] BILIRUBIN,DIRECT 0.1 0.0 - 0.2 mg/dL 05/15/2024 11:42 PM T [facility] BILIRUBIN,INDIRE CT 05/15/2024 11:42 PM [facility] Comment:Unable to calculate, Direct Bili <0.2 ALK PHOSPHATASE 89 35 - 104 IU/L 05/15/2024 11:42 PM [facility] ALT (SGPT) 6(L) 10 - 35 IU/L 05/15/2024 11:42 PM [facility] AST (SGOT) 18 10 - 35 IU/L 05/15/2024 11:42 PM [facility] Blood BLOOD SPECIMEN / Unknown Butterfly / Unknown 05/15/2024 11:11 PM CDT 05/15/2024 11:15 PM CDT Jose Manuel Steel DO CHEMISTRY Performing Organization Address [facility]/State/ZIP Co de Phone Number [facility] [address] [place] [address] * (ABNORMAL) BASIC METABOLIC PANEL (05/15/2024 11:11 PM CDT) SODIUM 140 136 - 145 mmol/L 05/15/2024 11:42 PM [facility] POTASSIUM 3.9 3.5 - 5.1 mmol/L 05/15/2024 11:42 PM [facility] CHLORIDE 104 98 - 107 mmol/L 05/15/2024 11:42 PM [facility] CO2,TOTAL 26 22 - 29 mmol/L 05/15/2024 11:42 PM [facility] ANION GAP 10 5 - 18 05/15/2024 11:42 PM [facility] GLUCOSE 115(H) 70 - 99 mg/dL 05/15/2024 11:42 PM [facility] CALCIUM 9.6 8.6 - 10.0 mg/dL 05/15/2024 11:42 PM [facility] BUN 10 6 - 20 mg/dL 05/15/2024 11:42 PM CDT [facility] CREATININE 0.59 0.50 - 0.90 mg/dL 05/15/2024 11:42 PM CDT [facility] BUN/CREAT RATIO 17 10 - 20 11:42 PM CDT [facility] eGFR >90 >90 mL/min/1.7 3m2 05/15/2024 11:42 PM CDT [facility] Comment:As of 2021, eG FR is calculated by the CKD-EPI creatinine equation without race adjustment. ??eGFR can be influenced by muscle mass, exercise, and diet. ??The reported eGFR is an estimation only and is only applicable if the renal function is stable. Blood BLOOD SPECIMEN / Unknown Butterfly / Unknown 05/15/2024 11:11 PM CDT 05/15/2024 11:15 PM CDT Jose Manuel Steel DO CHEMISTRY [facility] [address] [place] [address] * EKG 12 LEAD (05/15/2024 11:05 PM CDT) Interpretation Normal sinus rhythm Normal ECG No previous ECGs available non specific t wave abnormality in II, III, not aVF compared to prior 06/16/22 [facility] NOW Ventricular Rate 84 BPM BEYOND NOW Atrial Rate 84 BPM BEYOND NOW P-R Interval 158 ms [facility]YOND NOW QRS Duration 70 ms BEYOND NOW QT 386 ms [facility] NOW QTc 456 ms BEYOND NOW P Jones 37 degrees BEYOND NOW R Jones 63 degrees BEYOND NOW T Jones 37 degrees BEYOND NOW 05/15/2024 11:0 5 PM CDT 05/15/2024 11:18 PM CDT Jose Manuel Steel DO EKG ORD Performing Organization Address City/[facility]/ZIP Co de Phone Number [facility] [place], [place] * US ABDOMEN COMPLETE (05/03/2024 10:15 AM CDT) Anatomical Region Laterality Modality Abdomen, LIVER, KIDNEYS, PANCREAS, GALLBLADDER, SPLEEN Ultrasound 05/03/2024 2:17 PM CDT Impressions 05/03/2024 2:17 PM CDT Unremarkable right upper quadrant ultrasound. Dictated by Tadeo Madden MD @ 05/03/2024 2:17:44 PM (Electronically Signed) Narrative 05/03/2024 2:17 PM CDT For Patients: ??As a result of the Cures Act, medical imaging exams and procedure reports are released immediately into your electronic medical record. ??You may view this report before your referring provider. ??If you have questions, please contact your health care provider. INDICATION: Right sided abdominal pain. TECHNIQUE: Ultrasound abdomen limited. ??Sonographic images of the right upper quadrant were obtained using ramirez-scale and color Doppler images. COMPARISON: None. FINDINGS: Liver: Normal in size and echotexture. ??No suspicious masses. ??No intrahepatic biliary dilatation. ?? Gallbladder: No stones or sludge. ??Normal wall thickness. ??No pericholecystic fluid. Negative sonographic Montelongo sign. Common bile duct: 2 mm. ?? Pancreas: Unremarkable, where visualized. Right kidney: Normal in size. ??Normal echotexture and cortex. ??No suspicious masses, stones, or hydronephrosis. Vasculature: Proximal abdominal aorta and IVC are unremarkable. ?? Procedure Note Tadeo Madden MD - 05/03/2024 For Patients: As a result of the s Act, medical imagingexams and procedure reports are released immediately into your electronicmedical record. You may view this report before your referring provider.If you have questions, please contact your health care provider. INDICATION: Right sided abdominal pain. TECHNIQUE: Ultrasound abdomen limited. Sonographic images of the right upperquadrant were obtained using ramirez-scale and color Doppler images. COMPARISON: None. FINDINGS: Liver: Normal in size and echotexture. No suspicious masses. Nointrahepatic biliary dilatation. Gallbladder: No stones or sludge. Normal wall thickness. Nopericholecystic fluid. Negative sonographic Montelongo sign. Common bile duct: 2 mm. Pancreas: Unremarkable, where visualized. Right kidney: Normal in size. Normal echotexture and cortex. Nosuspicious masses, stones, or hydronephrosis. Vasculature: Proximal abdominal aorta and IVC are unremarkable. IMPRESSION: Unremarkable right upper quadrant ultrasound. Dictated by Tadeo Madden MD @ 05/03/2024 2:17:44 PM (Electronically Signed) Evelia Garcia MD * PROLACTIN ([facility]) (04/19/2024 3:33 PM CDT) PROLACTIN 8.2 ng/mL [facility] Comment: ?Reference Range Females ?Non- ?3.0-30.0 ? 10.0-209.0 ?Postmenopausal ?2.0-20.0 ? Blood BLOOD SPECIMEN / Unknown 04/19/2024 3:33 PM CDT 04/19/2024 3:34 PM CDT Meche Kapoor DO SEND OUTS [facility] [address] [place] [address], [facility] [address] [place] [address] * HEMOGLOBIN A1C SCREENING (04/19/2024 3:33 PM CDT) Pathologist [facility] HEMOGLOBIN A1C 4.7 <5.7 % of total Hgb [facility] Comment: For the purpose of screening for the presence of diabetes: <5.7% ? Consistent with the absence of diabetes 5.7-6.4% ?Consistent with increased risk for diabetes ?(prediabetes) > or =6.5% ??Consistent with diabetes This assay result is consistent with a decreased risk of diabetes. Currently, no consensus exists regarding use of hemoglobin A1c for diagnosis of diabetes in children. According to [place] Diabetes Association (ADA) guidelines, hemoglobin A1c <7.0% represents optimal control in non- diabetic patients. Different metrics may apply to specific patient populations. Standards of Medical Care in Diabetes(ADA). ? This test was performed on the Cody rose c503 platform. Effective 10/05/23, a change in test platforms from the [employer] to the [employer] rose c503 may have shifted HbA1c results compared to historical results. Based on laboratory validation testing conducted at [facility], the Cody platform relative to the Johnston platform had an average increase in HbA1c value of < or = 0.3%. This difference is within accepted variability established by the National Glycohemoglobin Standardization Program. Note that not all individuals will have had a shift in their results and direct comparisons between historical and current results for testing conducted on different platforms is not recommended. Blood BLOOD SPECIMEN / Unknown 04/19/2024 3:33 PM CDT 04/19/2024 3:34 PM CDT Meche Kapoor DO CHEMISTRY [facility] [address] [place] [address], [facility])[address] [address] * (ABNORMAL) VITAMIN D 25 (DEFICIENCY) (04/19/2024 3:33 PM CDT) [facility] VITAMIN D,25-OH,TOTAL,IA 17(L) 30 - 100 ng/mL [facility] Comment: Vitamin D Status ? 25-OH Vitamin D: Deficiency: ?<20 ng/mL Insufficiency: ? 20 - 29 ng/mL Optimal: ? > or = 30 ng/mL For 25-OH Vitamin D testing on patients on D2-supplementation and patients for whom quantitation of D2 and D3 fractions is required, the QuestAssureD(TM) 25-OH VIT D, (D2,D3), LC/MS/MS is recommended: order code 97519 (patients >2yrs). See Note 1 Note 1 For additional information, please refer to http://education.Attendify/faq/CLF591 (This link is being provided for informational/ educational purposes only.) Blood BLOOD SPECIMEN / Unknown 04/19/2024 3:33 PM CDT 04/19/2024 3:34 PM CDT Meche Kapoor DO SEND OUTS Performing Organization Address [facility] Co de Phone Number [facility] [address] [place] [address], [facility] [address] [place] [address] * LUTEINIZING HORMONE (04/19/2024 3:33 PM CDT) LH 6.1 mIU/mL [facility] Comment: ?Reference Range Follicular Phase ??1.9-12.5 Mid-Cycle Peak ?8.7-76.3 Luteal Phase ?0.5-16.9 Postmenopausal ?10.0-54.7 Blood BLOOD SPECIMEN / Unknown 04/19/2024 3:33 PM CDT 04/19/2024 3:34 PM CDT Meche Kapoor DO CHEMISTRY Performing Organization Address [facility]/ZIP Co de Phone Number [facility] [address] [place] [address], [place] [phone] [facility] [address] [place] [address] * FSH (04/19/2024 3:33 PM CDT) FSH 5.0 mIU/mL [facility] Comment: ?Reference Range ? Follicular Phase ? 2.5-10.2 ? Mid-cycle Peak ? 3.1-17.7 ? Luteal Phase ? 1.5- 9.1 ? Postmenopausal ? 23.0-116.3 ? Blood BLOOD SPECIMEN / Unknown 04/19/2024 3:33 PM CDT 04/19/2024 3:34 PM CDT Meche Kapoor DO CHEMISTRY Performing Organization Address City/State/[facility] Co de Phone Number [facility] [address] [place] [address], [facility] [address] [place] [address] * COMP METABOLIC PANEL (04/19/2024 3:33 PM CDT) GLUCOSE 67 65 - 99 mg/dL [facility] Comment: ? Fasting reference interval UREA NITROGEN (BUN) 12 7 - 25 mg/dL [facility] CREATININE 0.73 0.50 - 0.96 mg/dL [facility] EGFR 121 > OR = 60 mL/min/1. 73m2 [facility] BUN/CREATININE RATIO SEE NOTE: 6 (calc) [facility] Comment: ?? Not Reported: BUN and Creatinine are within ?? reference range. ? SODIUM 138 135 - 146 mmol/L [facility] POTASSIUM 4.2 3.5 - 5.3 mmol/L [facility] CHLORIDE 104 98 - 110 mmol/L [facility] CARBON DIOXIDE 26 20 - 32 mmol/L [facility] CALCIUM 9.9 8.6 - 10.2 mg/dL [facility] PROTEIN, TOTAL 7.9 6.1 - 8.1 g/dL [facility] ALBUMIN 4.8 3.6 - 5.1 g/dL [facility] GLOBULIN 3.1 1.9 - 3.7 g/dL (calc) [facility] ALBUMIN/GLOBULIN RATIO 1.5 1.0 - 2.5 (calc) [facility] BILIRUBIN, TOTAL 0.5 0.2 - 1.2 mg/dL [facility] ALKALINE PHOSPHATASE 72 31 - 125 U/L [facility] AST 17 10 - 30 U/L [facility] ALT 11 6 - 29 U/L [facility] Blood BLOOD SPECIMEN / Unknown 04/19/2024 3:33 PM CDT 04/19/2024 3:34 PM CDT Meche Kapoor DO CHEMISTRY [facility] [address] [place] [address], [facility] [address] [place] [address] from Last 3 Months Care Teams Benefits Analyst Relationship Specialty Start Date End Date Evelia Garcia MD [address] [place] [address] PCP - General Family Practice 08/06/22
== END 2024-05-15 22:03 | disposition home or self-care (01) ==
LOC: AMB 05-31 15:09
PROVIDERS: PCP Family Medicine; Visit Provider Emergency Medicine Emergency Medical Services
DX: R56.9 Unspecified convulsions (principal)
CPT/HCPCS: A0425; A0429

== ENCOUNTER 2024-09-27 21:02 | Outpatient (CLI) | payer MEDICAID, SELFPAY | END 2024-09-27 21:03 | disposition home or self-care (01) | LOC: AMB 09-28 11:47 | PROVIDERS: PCP Family Medicine; Visit Provider Family Medicine | DX: T78.40XA Allergy, unspecified, initial encounter (principal) | CPT/HCPCS: A0998 ==

== ENCOUNTER 2024-12-14 01:15 | Emergency (ER) | payer MEDICAID, SELFPAY ==
--- OUTSIDE RECORDS SUMMARY | 2024-12-14 01:17 | XMS_ITS | Clinical Summary ---
Author Organization [facility] Address [address] [place] [id number] Care Team Providers Care Video Presentation Operator Name Role Phone Evelia Garica MD Primary Care Provider Allergies Active Allergy Reactions Criticality Noted Date Comments Adhesive *Unknown,*Unknown - Follow up needed 04/13/2023 Cantaloupe Chest Pain,Hives,Itching,Rash 05/15/2023 [place] And Derivatives Anaphylaxis High 12/15/2022 Dust Mites Itching,Runny Nose 08/13/2024 Grapefruit GI Upset,Rash 04/20/2022 Lactase GI Upset High 12/15/2022 Pineapple Hives,Rash Medium 03/09/2022 Radish Cough,Hives,Itching, Nausea Only,Rash Low 09/30/2014 Tomato Itching,Rash High 10/12/2022 Unlisted Allergen (Include Detail In Comments) Cough,Hives,Itching,Rash 09/30/2014 Medications fluticasone (50 mcg per actuation) nasal solution (FLONASE) Inhale 1 [place] into affected nostril(s). 01/07/20 Active loratadine (CLARITIN) 10 mg tablet Take 10 mg by mouth. 01/07/20 Active ibuprofen (ADVIL; MOTRIN) 600 mg tablet Take 600 mg by mouth every 6 hours if needed. 04/19/20 23 Active blood-glucose meterIndications: Hypoglycemia Dispense meter, test strips, lancets covered by pt ins. For Hypoglycemia. Check blood sugar when symptoms occur. 1 Each 06/13/20 23 Active polyethylene glycoL (MIRALAX) 17 gram/scoop powderIndications :Constipation, unspecified constipation type Mix 1 scoop (17 g) in liquid then take by mouth once daily if needed for Constipation. 510 g 11/09/19 24 Active Aerochamber MV Use as instructed 02/03/20 24 Active OneTouch Delica Plus Lancet 33 gauge misc DIRECTED CHECK BLOOD SUGAR WHEN SYMPTOMS OCCUR 06/13/20 Active sucralfate (CARAFATE) 1 gram tabletIndications :Chronic constipation,Abdo jenna pain, generalized Take 1 Tablet (1 g) by mouth four times daily before meals and at bedtime. 120 Tablet 05/10/20 24 Active albuterol HFA (PRO-AIR; VENTOLIN; PROVENTIL) 90 mcg/actuation inhalerIndication s:Mild intermittent asthma without complication (HC) Inhale 2 Puffs by mouth every 4 hours if needed for Shortness Of Breath or Wheezing. 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 Max 12 puffs per day. 1 Each 07/02/20 24 Active EPINEPHrine (EpiPen) 0.3 mg/0.3 mL auto-injectorIndi cations:Urticaria Inject 0.3 mg (1 Pen) intramuscular each time if needed for Allergic Reaction. 2 Each 07/02/20 24 Active ondansetron (ZOFRAN ODT) 4 mg disintegrating tabletIndications :Nausea PLACE 1 TABLET (4 MG) ON THE TONGUE EVERY 8 HOURS IF NEEDED FOR NAUSEA/VOMITING. 20 Tablet 07/04/20 24 Active blood sugar diagnostic (OneTouch Ultra Test) stripIndications: Hypoglycemia As directed 3 times daily if needed (Hypoglycemia). Dispense item covered by pt ins. Intermittent hypoglycemia, testing three times daily as needed 100 Each 3 09/25/19 25 Active blood-glucose meterIndications: Hypoglycemia As directed 3 times daily if needed (Hypoglycemia). Dispense item covered by pt ins. Intermittent hypoglycemia, testing three times daily as needed 1 Each 09/25/19 25 Active blood sugar diagnostic (Contour Next Test Strips) stripIndications: Hypoglycemia Dispense item covered by pt ins. Three times daily as needed for symptoms 100 Each 09/25/19 25 Active lancetsIndication s:Hypoglycemia As directed. Test 3 times per day. 200 Each 12 09/25/19 25 Active methylphenidate ER (Concerta) 27 mg extended release tabletIndications :Attention deficit hyperactivity disorder (ADHD), predominantly inattentive type Take 1 Tablet (27 mg) by mouth once daily. 30 Tablet 11/22/19 25 025 Active omeprazole 20 mg tabletIndications :History of Helicobacter pylori infection,Abdomin al pain, epigastric Take 1 Tablet (20 mg) by mouth once daily before a meal. 30 Tablet 11/02/19 25 Active hydrOXYzine HCL 50 mg tabletIndications :Generalized anxiety disorder Take 1 tablet (50 mg) by mouth twice daily as needed for anxiety/sleep. 90 Tablet 1 12/13/19 25 Active sertraline 100 mg tabletIndications :Generalized anxiety disorder,Obsessiv e-compulsive disorder, unspecified type Take 1 Tablet (100 mg) by mouth once daily. 90 Tablet 12/13/19 25 Active methylphenidate ER (Concerta) 27 mg extended release tabletIndications :Attention deficit hyperactivity disorder (ADHD), predominantly inattentive type Take 1 Tablet (27 mg) by mouth once daily. 30 Tablet 01/16/20 25 025 Active methylphenidate ER (Concerta) 27 mg extended release tabletIndications :Attention deficit hyperactivity disorder (ADHD), predominantly inattentive type Take 1 Tablet (27 mg) by mouth once daily. 30 Tablet 02/15/20 25 025 Active methylphenidate ER (Concerta) 27 mg extended release tabletIndications :Attention deficit hyperactivity disorder (ADHD), predominantly inattentive type Take 1 Tablet (27 mg) by mouth once daily. 30 Tablet 03/16/20 25 Active hydrOXYzine HCL 50 mg tabletIndications :Generalized anxiety disorder Take 1 tablet (50 mg) by mouth twice daily as needed for anxiety/sleep. 90 Tablet 1 10/23/19 25 025 Discontin ued(Reord er (E-cancel not sent)) methylphenidate ER (Concerta) 27 mg extended release tabletIndications :Attention deficit hyperactivity disorder (ADHD), predominantly inattentive type Take 1 Tablet (27 mg) by mouth once daily. 30 Tablet 10/23/19 25 025 methylphenidate ER (Concerta) 27 mg extended release tabletIndications :Attention deficit hyperactivity disorder (ADHD), predominantly inattentive type Take 1 Tablet (27 mg) by mouth once daily. 30 Tablet 12/22/19 25 025 Discontin ued(*Avai lability/ Formulary change/Co st of medicatio n) sertraline 100 mg tabletIndications :Generalized anxiety disorder,Obsessiv e-compulsive disorder, unspecified type Take 1 Tablet (100 mg) by mouth once daily. 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 11/01/2024 Obsessive-compulsive disorder 08/13/2024 Eating disorder 08/13/2024 Borderline personality disorder 08/13/2024 Polycystic ovaries 04/19/2024 POTS (postural orthostatic tachycardia syndrome) 06/13/2023 Syncope and collapse 06/13/2023 Generalized anxiety disorder 10/13/2022 Attention deficit hyperactiv ity disorder (ADHD), predominantly inattentive type 10/13/2022 Controlled substance agreement signed 10/12/2022 Overview (10/12/2022): 10/12/2022, Laith Spears NP, Psychairty Resolved Problems Problem Noted Date Diagnosed Date Resolved Date AN (anorexia nervosa) 11/01/20242024 Bipolar II disorder 08/26/2022 10/23/19 25 Encounters Date Type Department Care Team Description 12/12/2024 9:15 AM CDT Office Visit [facility] [address] [facility] [place] [id number] Shila Spears NP Medication Management (Things are going okay) 12/12/2024 Travel 12/07/2024 Travel 12/06/2024 10:50 AM CDT Office Visit [facility] [address] [place] [address] Evelia Garcia MD Follow Up (IV fluids started 11:42) 12/05/2024 Travel 11/26/2024 Travel 11/02/2024 Travel 11/02/2024 Telephone [facility] [address] [place] [address] Evelia Garcia MD Follow Up 11/01/2024 2:45 PM CDT Orders Only [facility] [address] [place] [address] Lab, [facility] 11/01/2024 12:45 PM CDT Office Visit [facility] [address] [place] [address] Evelia Garcia MD Follow Up 10/31/2024 Travel 10/22/2024 8:45 AM CDT Office Visit [address] [address] Shila Spears NP Medication Management (Things are going well) 10/22/2024 Travel 10/19/2024 Travel 09/27/2024 Travel 09/25/[address] [address] Evelia Garcia MD Medication Management (Lancets) 09/25/[address] [address] Evelia Garcia MD Medication Management 09/24/2024 10:15 AM [employer] INSTRUMENT REPAIRER Office Visit [address] [address] Shila Spears NP Medication Management 09/24/[address] [address] Evelia Garcia MD Medication Management (OneTouch Ultra Test strip ) 09/24/2024 Travel 09/21/2024 Refill [facility] [address] [place] [address] Deejay Graf MD Refill Request (Onetouch Ultra Test) from Last 3 Months Immunizations Immunization Administration Dates Next Due COVID-19 VACCINE SPIKEVAX [...] conj 7-Valent (Prevnar 7) 1 2004,03/30/2005,09/08/2004,12/24 Tdap 11/01/2024,09/25/2014 Varicella Vaccine 04/24/2008,11/11/2004 Social History Tobacco Use Types Packs/Day Years Used Date Smoking Tobacco: Never Passive Smoke Exposure: Never Smokeless Tobacco: Never Tobacco Cessation:Counseling Given: Yes Alcohol Use Standard Drinks/Week Comments Not Currently 0 (1 standard drink = 0.6 oz pur e alcohol) rare PHQ-2 Answer Date Recorded PHQ-2 TOTAL SCORE 4 12/12/2024 Social Connections Answer Date Recorded Do you often feel lonely or isolated from those around you? 0 10/31/2024 Financial Resource Strain Answer Date R ecorded Difficulty of Paying Living Expenses 3 10/31/2024 Difficulty of Paying Living Expenses Not on file 10/31/2024 Food Insecurity Answer Date Recorded Do you worry your food will run out before you are able to buy more? 1 10/31/2024 Transportation Needs Answer Date Record ed Does lack of transportation keep you from medica l appointments? 1 10/31/2024 Does lack of transportation keep you from work, meetings or getting things that you need? 1 10/31/2024 Housing Stability Answer Date Recorded What is your housing situation today? 1 10/31/2024 Interpersonal Safety Answer Date Record ed Are you being hit, kicked, p ushed or yelled at (see row info)? No 05/15/2024 Interpersonal Safety Abuse 12 - 18 Not on file 05/15/2024 Interpersonal Safety Ambulatory Vulnerability No t on file 05/15/2024 Utilities Answer Date Recorded Do you have trouble paying f or utilities (for example, heat, electricity, water, phone)? 1 10/31/2024 Comments No Sex and Gender Information Value Date Recorded Sex Assigned at Female 08/31/2022 10:12 AM [employer] INSTRUMENT REPAIRER Legal Sex Female 9:15 AM CDT Gender Identity nonbinary 09/04/2022 11:21 PM [employer] INSTRUMENT REPAIRER Sexual Orientation Not on file Obstetrics History Last Filed Vital Signs Vital Sign Reading Time Taken Comments Blood Pressure 125/80 12/12/2024 9:10 AM CDT Pulse 84 12/12/2024 9:10 AM CDT Temperature 36.9 C (98.4 F) 07/02/2024 9:05 AM [employer] INSTRUMENT REPAIRER Respiratory Rate 16 05/16/2024 12:1 9 AM CDT Oxygen Saturation 98% 12/06/2024 10: 50 AM CDT Inhaled Oxygen Concentration - - Weight 118.5 kg (261 lb 4.8 oz) 10/22/2024 9:00 AM CDT Height 174 cm (5' 8.5) 07/02/2024 9:05 AM [employer] INSTRUMENT REPAIRER Body Mass Index - - Plan of Treatment Upcoming Encounters Date Type Department Care Team (Late st Contact Info) Description 04/16/2025 9:15 AM CDT Office Visit [facility] [address] [place] [address] Shila Spears NP [address] [facility] [address] Health Maintenance Due Date Last Done Comments HIV for age 15-65 2018 Chlamydia for age 16-24 2019 Hepatitis C screening for ag e 18-79 2021 Pneumococcal series for age 6-49 (1 of 2 - PCV) 2022 07/12/2005, 03/30/2005, 09/08/2004, Additional history exists Pap test for age 21-65 2024 BMI (ht and wt on same day) for age 18+ 07/02/2025 07/02/2024, 04/22/2023, 11/09/2022, Additional history exists Depression screening for age 12+ 12/12/2025 12/13/19 Tetanus booster 11/01/2034 11/01/2024, 09/25/2014 HPV series for age 9-26 Completed 05/08/20 15, 01/06/2015, 09/25/2014 HPV series for age 9-26 Completed 05/08/20 15, 01/06/2015, 09/25/2014 Meningococcal series for age 11-21 Completed 2019, 01/06/2015 COVID-19 vaccine series Completed 05/10/20 24, 05/11/2023, 04/20/2022, Additional history exists Influenza Vaccine Completed 05/10/2024, , 07/29/2022, Additional history exists Tdap Completed 11/01/2024, 09/25/2014 Procedures Procedure Name Priority Date/Time Associated Diagnosis Comments H PYLORI ANTIGEN,STOOL Routine 11/02/2024 11:30 AM CDT History of Helicobacter pylori infection COMPLIANCE DRUG ANALYSIS Routine 10/22/2024 9:26 AM CDT Attention deficit hyperactivity disorder (ADHD), predominantly inattentive type from Last 3 Months Results * H PYLORI ANTIGEN,STOOL (11/02/2024 11:30 AM CDT) HELICOBACTER PYLORI AG, EIA, STOOL SEE NOTE [facility] Comment: HELICOBACTER PYLORI AG, EIA, STOOL Micro Number: [id number] Test Status: Final Specimen Source: Stool/feces Specimen Quality: Adequate H.pylori Ag: Not Detected Antimicrobials, proton pump inhibitors, and bismuth preparations inhibit H. pylori and ingestion up to two weeks prior to testing may cause false negative results. If clinically indicated the test should be repeated on a new specimen obtained two weeks after discontinuing treatment. Reference Range: Not Detected Stool STOOL SPECIMEN / Unknown 11/02/2024 11:30 AM CDT 11/02/2024 11:30 AM CDT Evelia Garcia MD MICROBIOLOGY Final Resul t Front App [facility] [address] [place] [address], [facility] [address] [place] [address] * COMPLIANCE DRUG ANALYSIS (10/22/2024 9:26 AM CDT) 6-MONOACETYL MORPHINE NEG NEG ng/mL 10/24/2024 1:01 PM CDT [facility] AMPHETAMINE URINE NEG <=500 ng/mL 10/24/2024 1:01 PM T [facility] BARBITURATE URINE NEG <=200 ng/mL 10/24/2024 1:01 PM CDT [facility] BENZODIAZEPINE URINE NEG <=100 ng/mL 10/24/2024 1:01 PM CDT [facility] BUPRENORPHRINE URINE NEG <=5 ng/mL 09/30 1:01 PM T [facility] COCAINE METAB URINE NEG <=300 ng/mL 10/24/2024 1:01 PM T [facility] ETHYLGLUCURONIDE URINE NEG <=250 ng/mL 10/24/2024 1:01 PM [facility] FENTANYL URINE NEG <=5 ng/mL 10/24/2024 1:01 PM [facility] METHADONE URINE NEG <=300 ng/mL 10/24/2024 1:01 PM [facility] OPIATES URINE NEG <=300 ng/mL 10/24/2024 1:01 PM [facility] OXYCODONE URINE NEG <=100 ng/mL 10/24/2024 1:01 PM [facility] PROPOXYPHENE URINE NEG <=300 ng/mL 10/24/2024 1:01 PM [facility] THC 50 URINE NEG <=50 ng/mL 10/24/2024 1:01 PM [facility] TRAMADOL NEG <=200 ng/mL 10/24/2024 1:01 PM [facility] PH URINE 5.5 5.0 - 7.0 10/24/2024 1:01 PM [facility] CREAT UR 333 >=20 mg/dL 10/24/2024 1:01 PM [facility] MASS SPECTROMETRY URINE See Below 10/24/2024 1:01 PM [facility] Comment:Hydroxyzine, Ritalin ic Acid and Sertraline present. Urine URINE SPECIMEN / Unknown Non-Blood / Unknown 10/22/2024 9:26 AM T 10/22/2024 9:[address] [facility] - 10/24/2024 1:[address] [facility] Current Outpatient Medications: Aerochamber MV, Use as instructed albuterol HFA (PRO-AIR; VENTOLIN; PROVENTIL) 90 mcg/actuation inhaler, Inhale 2 Puffs by mouth every 4 hours if needed for Shortness Of Breath or Wheezing. blood sugar diagnostic (Contour Next Test Strips) strip, Dispense item covered by pt ins. Three times daily as needed for symptoms blood sugar diagnostic (OneTouch Ultra Test) strip, As directed 3 times daily if needed (Hypoglycemia). Dispense item covered by pt ins. Intermittent hypoglycemia, testing three times daily as needed blood-glucose meter, As directed 3 times daily if needed (Hypoglycemia). Dispense item covered by pt ins. Intermittent hypoglycemia, testing three times daily as needed blood-glucose meter, Dispense meter, test strips, lancets covered by pt ins. For Hypoglycemia. Check blood sugar when symptoms occur. budesonide-formoteroL (SYMBICORT) 80-4.5 mcg/actuation (80-4.5 mcg each actuation) inhaler, Inhale 2 puffs twice daily and 1-2 puffs every 4 hours as needed for asthma exacerbations. Max 12 puffs per day. EPINEPHrine (EpiPen) 0.3 mg/0.3 mL auto-injector, Inject 0.3 mg (1 Pen) intramuscular each time if needed for Allergic Reaction. fluticasone (50 mcg per actuation) nasal solution (FLONASE), Inhale 1 [place] into affected nostril(s). hydrOXYzine HCL (ATARAX) 50 mg tablet, Take 1 tablet (50 mg) by mouth twice daily as needed for anxiety/sleep. ibuprofen (ADVIL; MOTRIN) 600 mg tablet, Take 600 mg by mouth every 6 hours if needed. lancets, As directed. Test 3 times per day. loratadine (CLARITIN) 10 mg tablet, Take 10 mg by mouth. methylphenidate (Concerta) 27 mg extended-release tablet, Take 1 Tablet (27 mg) by mouth once daily. methylphenidate ER (Concerta) 27 mg extended release tablet, Take 1 Tablet (27 mg) by mouth once daily. ondansetron (ZOFRAN ODT) 4 mg disintegrating tablet, PLACE 1 TABLET (4 MG) ON THE TONGUE EVERY 8 HOURS IF NEEDED FOR NAUSEA/VOMITING. OneTouch [facility], DIRECTED CHECK BLOOD SUGAR WHEN SYMPTOMS OCCUR polyethylene glycoL (MIRALAX) 17 gram/scoop powder, Mix 1 scoop (17 g) in liquid then take by mouth once daily if needed for Constipation. sertraline (ZOLOFT) 100 mg tablet, Take 1 Tablet (100 mg) by mouth once daily. sertraline (ZOLOFT) 25 mg tablet, Take 1 Tablet (25 mg) by mouth once daily. Take with 100 mg tablet for total of 125 mg daily. sucralfate (CARAFATE) 1 gram tablet, Take 1 Tablet (1 g) by mouth four times daily before meals and at bedtime. No current facility-administered medications for this visit. As of 10/22/2024 Release to patient->Immediate us Shila Spears BOTTOM CRANE OPERATOR URINE Final Resul t [facility] [place] [address] [place] [address], [place] from Last 3 Months Insurance [facility] Care Teams Video Presentation Operator Relationship Specialty Start Date End Date Evelia Garcia MD [address] [place] [address] PCP - General Family Practice 08/06/22
[2024-12-14 01:21] VITALS: BP 135/59; PULSE 81; RESP 16; TEMP 36.7; O2SAT 98; BMI 39.9
--- NOTE | 2024-12-14 01:26 | ED_ITS ---
HPI - General Adult General Chief complaint: Syncope/Fainted Stated complaint: syncope Time Seen by Provider: 12/14/24 01:25 History of Present Illness HPI narrative: Patient is a 19-year-old comes in tonight after a syncopal episode in their dorm room. Patient has a history of syncope which is being evaluated as an outpatient. Patient states that they were getting ready for bed and suddenly felt like they are when a pass out and woke up on the floor. They do not believe the hit her head. There is no seizure activity. No nausea no vomiting no fevers no chills. The patient has no neck pain. They are now feeling fine. Workup is now patient has been unremarkable. Patient is otherwise in their usual state of health. Related Data Home Medications ?Medication ?Instructions ?Recorded ?Confirmed fluticasone propionate 50 1 spray intranasal DAILY 06/19/22 11/03/23 mcg/actuation nasal spray,suspension loratadine 10 mg tablet 10 mg PO DAILY 06/19/22 11/03/23 sertraline 100 mg tablet (Zoloft) 100 mg PO Q24H 06/19/22 12/14/24 sertraline 25 mg tablet (Zoloft) 25 mg PO DAILY 06/19/22 11/03/23 dextroamphetamine-amphetamine ER 1 cap PO DAILY 12/15/22 11/03/23 10 mg 24hr capsule,extend release (Adderall XR) hydroxyzine HCl 25 mg tablet 25 - 50 mg PO DAILY PRN anxiety 04/13/23 12/14/24 albuterol sulfate 90 mcg/actuation inhalation 09/19/23 11/03/23 aerosol inhaler cholecalciferol (vitamin D3) 25 PO 09/19/23 11/03/23 mcg (1,000 unit) tablet hydroxyzine pamoate 25 mg capsule 25 mg PO DAILY PRN 09/19/23 11/03/23 Previous Rx's ?Medication ?Instructions ?Recorded albuterol sulfate 90 mcg/actuation 2 puff inhalation Q4-6H PRN 10/10/23 aerosol inhaler shortness of breath or wheezing #6.7 grams Allergies Allergy/AdvReac Type Severity Reaction Status Date / Time Cataract And Derivatives Allergy Severe Anaphylaxis Verified 11/03/23 18:11 tomato Allergy Intermediate Rash Verified 11/03/23 18:11 adhesive Allergy Unknown Verified 11/03/23 18:11 grapefruit Allergy Unknown Rash Verified 11/03/23 18:11 pineapple Allergy Unknown Rash Verified 11/03/23 18:11 dairy Allergy Intermediate Gi Uncoded 11/03/23 18:11 intolerance Review of Systems Status of ROS: Reports: 10 or more systems reviewed and unremarkable except as noted in History and below [facility] Medical History Seasonal allergies ?J30.2 - Other seasonal allergic rhinitis (ICD-10) Fainting ?R55 - Syncope and collapse (ICD-10) Anxiety and depression ?F41.9 - Anxiety disorder, unspecified (ICD-10) ?F32.A - Depression, unspecified (ICD-10) Asthma ?J45.909 - Unspecified asthma, uncomplicated (ICD-10) Anemia ?D64.9 - Anemia, unspecified (ICD-10) Surgical History History of wisdom tooth extraction ?K08.409 - Partial loss of teeth, unspecified cause, unspecified class (ICD- 10) Social History Smoking Status: Never smoker Do you use any of these nicotine containing products: None and Vaping Products Second hand tobacco smoke exposure: No How often do you have a drink containing alcohol: never How often do you have six or more drinks on one occasion: Never AUDIT-C Alcohol total score: 0 Non-prescribed substance use: denies use service: No Exam Narrative: Exam Narrative: EXAM GENERAL: Patient appears comfortable and well. EYES: No scleral icterus. ENT: Tympanic membranes and oropharynx normal. THYROID: no thyroid nodules or thyromegaly. LYMPH: No supraclavicular or cervical lymphadenopathy. SKIN: Visible skin seen during exam normal or with benign process only. EXT: No dependent lower extremity pedal edema. HEART: Regular rate and rhythm with no murmurs, rubs, or gallops. LUNGS: Clear to auscultation bilaterally with no crackles or wheezes. ABD: Soft, non tender, non distended. PSYCH: Good eye contact, speech is not pressured. Neurologic cranial nerves 2-12 grossly intact no focal defects. Const: Vital Signs, click to edit/add: Vital Signs - 24 hr 12/14/24 01:21 Temperature 98.1 F Pulse Rate [Pulse Oximeter] 81 Respiratory Rate 16 Blood Pressure [Ri ght Upper Arm] 135/59 L Pulse Oximetry 98 Oxygen Delivery Me thod Room Air Course Course ED Course: Patient seen and examined. CBC D-dimer troponin basic metabolic panel UA EKG pending. Vital Signs Vital signs: Initial Vital Signs Temperature 98.1 F 12/14/24 01:21 Temperature Source Temporal Artery Scan 12/14/24 01:21 Pulse Rate 81 12/14/24 01:21 Respiratory Rate 16 12/14/24 01:21 Blood Pressure 135/59 L 12/14/24 01:21 Blood Pressure Mean 84 12/14/24 01:21 Blood Pressure Position Sitting 12/14/24 01:21 Pulse Oximetry 98 12/14/24 01:21 Oxygen Delivery Method Room Air 12/14/24 01:21 Vital Signs Temperature 98.1 F 12/14/24 01:21 Pulse Rate 81 12/14/24 01:21 Respiratory Rate 16 12/14/24 01:21 Blood Pressure 135/59 L 12/14/24 01:21 Pulse Oximetry 98 12/14/24 01:21 Oxygen Delivery Method Room Air 12/14/24 01:21 Temperature 98.1 F 12/14/24 01:21 Pulse Rate 81 12/14/24 01:21 Respiratory Rate 16 12/14/24 01:21 Blood Pressure 135/59 L 12/14/24 01:21 Pulse Oximetry 98 12/14/24 01:21 Oxygen Delivery Method Room Air 12/14/24 01:21 Medical Decision Making [facility] Narrative Medical decision making narrative: Patient is a 19-year-old woman with recurrent syncope you had a syncopal episode tonight. They did not injure themselves. EKG shows normal sinus rhythm. Laboratory workup including troponin D-dimer CBC electrolytes normal. This point the exam is normal the vital signs are normal lab workup and EKG are normal. I did discharged home to continue outpatient follow-up and evaluation for her syncopal episodes. Lab Data Labs: Lab Results 12/14/24 12/14/24 Range/Units 01:30 01:35 WBC 6.60 (4.50-11.00) K/uL RBC 4.23 (4.00-5.20) m/uL Hgb 12.0 (12.0-16.0) gm/dL Hct 38.7 (33.0-51.0) % MCV 92 (80-100) fL MCH 28 (26-34) pg MCHC 31 L (32-36) gm/dL RDW Coeff of Preeti 11.4 L (11.5-15.5) % Plt Count 232 (140-440) K/uL Neut % (Auto) 48.7 (42.0-72.0) % Lymph % (Auto) 38.9 (20-44) % [place] % (Auto) 9.2 (0.0-11.0) % Eos % (Auto) 2.7 (0.0-7.0) % Baso % (Auto) 0.3 (0.0-3.0) % Neut # (Auto) 3.21 (1.7-7.0) K/uL Lymph # (Auto) 2.57 (0.90-2.90) K/uL [place] # (Auto) 0.60 (0.00-0.90) K/UL Eos # (Auto) 0.18 (0.00-0.50) K/uL Baso # (Auto) 0.02 (0.00-0.30) K/uL Abs Immat Gran (auto) 0.01 (0.00-0.30) K/uL Imm/Tot Granulo (auto) 0.2 % D-Dimer Quant (PE/DVT) 0.15 (0.00-0.50) ug/ml Sodium 141 (135-149) mmol/L Potassium 4.2 (3.6-5.1) mmol/L Chloride 106 (96-114) mmol/L Carbon Dioxide 27 (20-32) mmol/L Anion Gap 8 (7-15) mEq/L BUN 13 (5-24) mg/dL Creatinine 0.7 (0.5-1.5) mg/dL Estimated Creat Clear 132.86 Estimated GFR 126 ml/min Glucose 91 (60-115) mg/dL Calcium 9.0 (8.4-10.6) mg/dL Troponin I < 0.01 (0.01-0.04) ng/mL Urine Color Yellow (Yellow) Urine Appearance Clear (Clear) Urine pH 5.5 (5.0-8.5) Ur Specific [place] >= 1.030 (1.000-1.030) Urine Protein Negative (Negative) Urine Glucose (UA) Negative (Negative) Urine Ketones Negative (Negative) Urine Blood Negative (Negative) Urine Nitrite Negative (Negative) Urine Bilirubin Negative (Negative) Urine Urobilinogen 0.2 (0.2-1.0) Ur Leukocyte Esterase Negative (Negative) Discharge Plan Discharge Clinical Impression: Fainting Patient Disposition: Home, Self-Care Condition: Stable Instructions: Syncope (ED) Additional Instructions: Continue outpatient evaluation for symptoms. Continue current medications. Follow-up with your doctor as discussed. Activity Level: No Restrictions Discharge Diet: Regular Prescriptions: No Action albuterol sulfate 90 mcg/actuation HFA aerosol inhaler 2 puff inhalation Q4-6H PRN (Reason: shortness of breath or wheezing) Qty: 6.7 0RF fluticasone propionate 50 mcg/actuation spray,suspension 1 spray INTRANASAL DAILY Patient Comments: INSTILL 1 SPRAY INTO AFFECTED NOSTRIL/S DAILY loratadine 10 mg tablet 10 mg PO DAILY Patient Comments: TAKE 1 TABLET (10 MG TOTAL) BY MOUTH DAILY sertraline [Zoloft] 100 mg tablet 100 mg PO Q24H sertraline [Zoloft] 25 mg tablet 25 mg PO DAILY albuterol sulfate 90 mcg/actuation HFA aerosol inhaler inhalation hydroxyzine pamoate 25 mg capsule 25 mg PO DAILY PRN cholecalciferol (vitamin D3) 25 mcg (1,000 unit) tablet PO dextroamphetamine-amphetamine [Adderall XR] 10 mg capsule,extended release 24hr 1 cap PO DAILY hydroxyzine HCl 25 mg tablet 25 - 50 mg PO DAILY PRN (Reason: anxiety) Follow Up/Referrals: Evelia Garcia MD [Primary Care Provider] - Stand Alone Forms: Forward Talent Info Instructions
[2024-12-14 01:41] LABS: Basophils Absolute Auto 0.02 K/uL (0.00-0.30); Basophils Percent Auto 0.3 % (0.0-3.0); Eosinophils Absolute Auto 0.18 K/uL (0.00-0.50); Eosinophils Percent Auto 2.7 % (0.0-7.0); Hematocrit 38.7 % (33.0-51.0); Immature Granulocytes Abs Auto 0.01 K/uL (0.00-0.30); Immature Granulocytes Pct Auto 0.2 %; Lymphocytes Absolute Auto 2.57 K/uL (0.90-2.90); Lymphocytes Percent Auto 38.9 % (20-44); Mean Corpuscular HGB Conc 31 gm/dL (32-36); Mean Corpuscular Hemoglobin 28 pg (26-34); Mean Corpuscular Volume 92 fL (80-100); Monocytes Percent Auto 9.2 % (0.0-11.0); Neutrophils Absolute Auto 3.21 K/uL (1.7-7.0); Neutrophils Percent Auto 48.7 % (42.0-72.0); Platelet Count* 232 K/uL (140-440); RDW Coefficient of Variation % 11.4 % (11.5-15.5); Red Blood Count 4.23 m/uL (4.00-5.20)
--- OUTSIDE RECORDS SUMMARY | 2024-12-14 01:42 | XMS_ITS | Clinical Summary ---
Author Organization [facility] Address [address] [place] [id number] Care Team Providers Care Program Analyst Name Role Phone Evelia Garcia MD Primary Care Provider Allergies Active Allergy Reactions Criticality Noted Date Comments Adhesive *Unknown,*Unknown - Follow up needed 04/13/2023 Cantaloupe Chest Pain,Hives,Itching,Rash 05/15/2023 [place] And Derivatives Anaphylaxis High 12/15/2022 Dust Mites Itching,Runny Nose 08/13/2024 Grapefruit GI Upset,Rash 04/20/2022 Lactase GI Upset High 12/15/2022 Pineapple Hives,Rash Medium 03/09/2022 Radish Cough,Hives,Itching, Nausea Only,Rash Low 09/30/2014 Tomato Itching,Rash High 10/12/2022 Unlisted Allergen (Include Detail In Comments) Cough,Hives,Itching,Rash 09/30/2014 Medications fluticasone (50 mcg per actuation) nasal solution (FLONASE) Inhale 1 [place] into affected nostril(s). 01/07/20 Active loratadine (CLARITIN) [...] Description 12/12/2024 9:15 AM CDT Office Visit [facility] [[email or web address]] [address] [facility] [place] [id number] Shila Spears NP Medication Management (Things are going okay) 12/12/2024 Travel 12/07/2024 Travel 12/06/2024 10:50 AM CDT Office Visit [facility] [[email or web address]] [address] [place] [address] Evelia Garcia MD Follow Up (IV fluids started 11:42) 12/05/2024 Travel 11/26/2024 Travel 11/02/2024 Travel 11/02/2024 Telephone [facility] [[email or web address]] [address] [place] [address] Evelia Garcia MD Follow Up 11/01/2024 2:45 PM CDT Orders Only [facility] [[email or web address] [address] [place] [address] Lab, [place] [facility] 11/01/2024 12:45 PM CDT Office Visit [facility] [[email or web address]] [address] [place] [address] Evelia Garcia MD Follow Up 10/31/2024 Travel 10/22/2024 8:45 AM CDT Office Visit [address] [address] Shila Spears NP Medication Management (Things are going well) 10/22/2024 Travel 10/19/2024 Travel 09/27/2024 Travel 09/25/[address] [address] Evelia Garcia MD Medication Management (Lancets) 09/25/[address] [address] Evelia Garcia MD Medication Management 09/24/2024 10:15 AM PROSTHODONTIST/OWNER Office Visit [address] [address] Shila Spears NP Medication Management 09/24/[address] [address] Evelia Garcia MD Medication Management (OneTouch Ultra Test strip ) 09/24/2024 Travel 09/21/2024 Refill [facility] [[email or web address]] [address] [place] [address] Deejay Graf MD Refill Request (Onetouch Ultra [...] Sex Assigned at Female 08/31/2022 10:12 AM PROSTHODONTIST/OWNER Legal Sex Female 9:15 AM CDT Gender Identity nonbinary 09/04/2022 11:21 PM PROSTHODONTIST/OWNER Sexual Orientation Not on file Obstetrics History Last Filed Vital Signs Vital Sign Reading Time Taken Comments Blood Pressure 125/80 12/12/2024 9:10 AM CDT Pulse 84 12/12/2024 9:10 AM CDT Temperature 36.9 C (98.4 F) 07/02/2024 9:05 AM PROSTHODONTIST/OWNER Respiratory Rate 16 05/16/2024 12:1 9 AM CDT Oxygen Saturation 98% 12/06/2024 10: 50 AM CDT Inhaled Oxygen Concentration - - Weight 118.5 kg (261 lb 4.8 oz) 10/22/2024 9:00 AM CDT Height 174 cm (5' 8.5) 07/02/2024 9:05 AM PROSTHODONTIST/OWNER Body Mass Index - - Plan of Treatment Upcoming Encounters Date Type Department Care Team (Late st Contact Info) Description 04/16/2025 9:15 AM CDT Office Visit [facility] [[email or web address]] [address] [place] [address] Shila Spears NP [address] [facility] [address] Health Maintenance Due Date Last Done Comments [...] [employer], EIA, STOOL SEE NOTE [employer] rember[employer] Wells Comment: [employer], EIA, STOOL Micro Number: [id number] Test Status: Final Specimen Source: Stool/feces Specimen [...] Evelia Garcia MD MICROBIOLOGY Final Resul t [employer] [facility] [address] [place] [address], [facility] [address] [place] [address] * COMPLIANCE DRUG ANALYSIS (10/22/2024 9:26 AM CDT) 6-MONOACETYL MORPHINE NEG NEG ng/mL 10/24/2024 1:01 PM CDT [facility] AMPHETAMINE URINE NEG <=500 ng/mL 10/24/2024 1:01 PM T [facility] BARBITURATE URINE NEG <=200 ng/mL 10/24/2024 1:01 PM CDT [facility] BENZODIAZEPINE URINE NEG <=100 ng/mL 10/24/2024 1:01 PM CDT [facility] BUPRENORPHRINE URINE NEG <=5 ng/mL 09/30 1:01 PM T [facility] COCAINE METAB URINE NEG <=300 ng/mL 10/24/2024 1:01 PM T [facility] ETHYLGLUCURONIDE URINE NEG <=250 ng/mL 10/24/2024 1:01 PM [facility] FENTANYL URINE NEG <=5 ng/mL 10/24/2024 1:01 PM [facility] METHADONE URINE NEG <=300 ng/mL 10/24/2024 1:01 PM [facility] OPIATES URINE NEG <=300 ng/mL 10/24/2024 1:01 PM [facility] OXYCODONE URINE NEG <=100 ng/mL 10/24/2024 1:01 PM [facility] PROPOXYPHENE URINE NEG <=300 ng/mL 10/24/2024 1:01 PM [facility] THC 50 URINE NEG <=50 ng/mL 10/24/2024 1:01 PM [facility] TRAMADOL NEG <=200 ng/mL 10/24/2024 1:01 PM [facility] PH URINE 5.5 5.0 - 7.0 10/24/2024 1:01 PM [facility] CREAT UR 333 >=20 mg/dL 10/24/2024 1:01 PM [facility] MASS SPECTROMETRY URINE See Below 10/24/2024 1:01 PM [facility] Comment:Hydroxyzine, Ritalin ic Acid and Sertraline present. Urine URINE SPECIMEN / Unknown Non-Blood / Unknown 10/22/2024 9:26 AM T 10/22/2024 9:26 AM [facility] - 10/24/2024 1:01 PM [facility] Current Outpatient Medications: Aerochamber MV, Use as [...] per actuation) nasal solution (FLONASE), Inhale 1 [place] into affected nostril(s). hydrOXYzine HCL (ATARAX) 50 [...] OneTouch Delica Plus Lancet [facility], DIRECTED CHECK BLOOD SUGAR WHEN SYMPTOMS [...] 10/22/2024 Release to patient->Immediate us Shila Spears [employer] URINE Final Resul t [facility] [place] [facility] [address] [place] [address], [place] from Last 3 Months Insurance [facility] Care Teams Program Analyst Relationship Specialty Start Date End Date Evelia Garcia MD [address] [place] [address] PCP - General Family Practice 08/06/22
[2024-12-14 01:56] LABS: Chloride* 106 mmol/L (96-114); Potassium* 4.2 mmol/L (3.6-5.1); Sodium* 141 mmol/L (135-149)
[2024-12-14 01:57] LABS: Slide Review Reflex No
[2024-12-14 01:59] LABS: Anion Gap 8 mEq/L (7-15); Blood Urea Nitrogen* 13 mg/dL (5-24); Carbon Dioxide* 27 mmol/L (20-32); Creatinine* 0.7 mg/dL (0.5-1.5); Est. Creatinine Clearance* 132.86; Estimated Glomerular Filt Rate 126 ml/min
[2024-12-14 02:00] LABS: Glucose* 91 mg/dL (60-115)
[2024-12-14 02:00] LABS: Appearance Urine Clear (Clear); Bilirubin Urine Negative (Negative); Blood Urine Negative (Negative); Color Urine Yellow (Yellow); Glucose Urine Negative (Negative); Ketones Urine Negative (Negative); Leukocyte Esterase Urine Negative (Negative); Nitrite Urine Negative (Negative); Protein Urine Negative (Negative); Specific Gravity Urine >= 1.030 (1.000-1.030); Urobilinogen Urine 0.2 (0.2-1.0); pH Urine 5.5 (5.0-8.5)
[2024-12-14 02:15] LABS: D Dimer Quantitative* 0.15 ug/ml (0.00-0.50); Troponin I* < 0.01 ng/mL (0.01-0.04)
[2024-12-14] MEDS: 0.9 % SODIUM CHLORIDE 1000 ml 1,000 ML IV (02:25)
[2024-12-14 03:16] VITALS: BP 125/74; PULSE 79; RESP 16; TEMP 36.9; O2SAT 98
== END 2024-12-14 03:17 | disposition home or self-care (01) ==
PROVIDERS: Emergency Provider Internal Medicine; PCP Family Medicine
DX: R55 Syncope and collapse (principal)
CPT/HCPCS: 36415; 80048; 81003; 84484; 85025; 85379; 93005; 99283; 99284; J7030

== ENCOUNTER 2025-04-17 12:53 | Outpatient (CLI) | payer MEDICAID, SELFPAY | END 2025-04-17 12:54 | disposition home or self-care (01) | LOC: AMB 04-18 11:50 | PROVIDERS: PCP Family Medicine; Visit Provider Family Medicine | DX: S99.912A Unspecified injury of left ankle, initial encounter (principal); W10.9XXA Fall (on) (from) unspecified stairs and steps, initial encounter; Y92.9 Unspecified place or not applicable | CPT/HCPCS: A0425; A0433 ==

== ENCOUNTER 2025-04-17 13:33 | Emergency (ER) | payer MEDICAID, SELFPAY ==
--- OUTSIDE RECORDS SUMMARY | 2025-02-18 15:45 | XMS_ITS | Encounter Summary ---
Author Organization [facility], [facility], [facility], and Affiliates Address [address] [place] [address] Care Team Providers Care Gas Meter Repairer Name Role Phone Provider, None Per Patient Primary Care Provider Reason for Referral * Surgical (Routine) - Closed Specialty Diagnoses / Procedures Referred By Jonathon soriano Referred To Contact Plastic Surgery Diagnoses Menstrual bleeding problem Diasy Spears MD [address] [place] [address] Phone: tel: fax: [facility] Plastic & Reconstructive Surgery [address] [place] [address] Phone: tel: fax: Referral ID Status Reason Start Date Expiration Date V isits Requested Visits Authorized [id number] Closed Specialty Services Required 02/18/2025 02/18/2026 1 1 Question Answer Reason for Referral? breast reduction consultation Reason for Visit * Reason Comments Menorrhagia Encounter Details Date Type Department Care Team (Late st Contact Info) Description 02/18/2025 1:45 PM PDT Office Visit [facility] [address] [place] [address] Chio Mcintyre MD [address] [place] [id number] Menstrual bleeding problem; Anxiety Social History Tobacco Use Types Packs/Day Years Used Date Smoking Tobacco: Some Days Vape Passive Smoke Exposure: Never Smokeless Tobacco: Never Tobacco Cessation:Ready to Q uit: Not Asked; Counseling Given: Not Answered Comments:Occasional vaping Alcohol Use Standard Drinks/Week Comments Never 0 (1 standard drink = 0.6 oz pur e alcohol) [facility] Utilities Answer Date Recorded In the past 12 months has th e electric, gas, oil, or water company threatened to shut off services in your home? No 09/21/2023 AUDIT-C Answer Date Recorded Q1: How often do you have a drink containing alc ohol? Monthly or less 09/21/2023 Q2: How many drinks containi ng alcohol do you have on a typical day when you are drinking? 1 or 2 09/21/2023 Q3: How often do you have si x or more drinks on one occasion? Never 09/21/2023 Overall Financial Resource Strain (CARDIA) Answe r Date Recorded How hard is it for you to pa y for the very basics like food, housing, medical care, and heating? Not hard at all 09/21/2023 Hunger Vital Sign Answer Date Recorded Within the past 12 months, y ou worried that your food would run out before you got the money to buy more. Never true 09/21/19 24 Within the past 12 months, t he food you bought just didn't last and you didn't have money to get more. Never true 09/21/2023 PRAPARE - Transportation Answer Date Re corded In the past 12 months, has l ack of transportation kept you from medical appointments or from getting medications? No 09/02 In the past 12 months, has l ack of transportation kept you from meetings, work, or from getting things needed for daily living? No 09/21/2023 Housing Stability Vital Sign Answer Dustin e Recorded In the last 12 months, was t here a time when you were not able to pay the mortgage or rent on time? No 09/21/2023 In the last 12 months, how many places have you lived? 2 09/21/2023 In the last 12 months, was t here a time when you did not have a steady place to sleep or slept in a fdc (including now)? No 09/21/2023 Comments No Sex and Gender Information Value Date Recorded Sex Assigned at Female 08/25/2022 4:24 PM PST Legal Sex Female 2:42 PM PST Gender Identity Nonbinary / Gender Queer 023 4:24 PM PST Sexual Orientation Queer 07/04/2023 8: 54 AM PST documented as of this encounter Last Filed Vital Signs Vital Sign Reading Time Taken Comments Blood Pressure 124/75 02/18/2025 1:36 PM PDT Pulse 92 02/18/2025 1:36 PM PDT Temperature 37.1 C (98.8 F) 02/18/2025 1:36 PM PDT Respiratory Rate 20 02/18/2025 1:36 PM PDT Oxygen Saturation - - Inhaled Oxygen Concentration - - Weight - - Height - - Body Mass Index - - documented in this encounter Patient Instructions * Patient Instructions* Chio Mcintyre MD - 02/18/2025 1:45 PM PDT Your child has been referred to Plastic Surgery. Please call the department directly to schedule an appointment. Collazo regine(a) pacheco sido referido al departamento [facility]. Por favor llame para hacer leon neema para collazo regine (a). Plastic & Reconstructive Surgery [address] [place] [id number] We discussed your concerns about prolonged vaginal bleeding: - You have been experiencing vaginal bleeding for 12 days. Based on your symptoms, we decided to start provera 5mg daily until follow-up - Please follow up with your primary care provider (PCP) in [place] to discuss whether you would like to continue with Depo-Provera injections or the oral progestin. We discussed your concerns about dizziness and anemia: - You reported increased dizziness over the past 12 days, which is more than your baseline dizziness related to POTS. - Continue drinking kale smoothies and maintaining a diet rich in iron to help prevent anemia. - If your dizziness worsens or you experience additional symptoms such as fainting, please seek medical attention. We discussed your concerns about breast reduction: - You mentioned back pain related to your breast size and are interested in pursuing a breast reduction. - We recommend consulting with a plastic surgeon to discuss this further. You can decide whether topursue this in [place] or locally, depending on your preference. We discussed your concerns about constipation: - You have not had a bowel movement in one week but have been taking Miralax daily for the past five days. - Continue taking Miralax as directed. If your symptoms do not improve, please follow up with your PCP. Follow-Up: - Please follow up with your PCP in [place] after you return to college in five weeks to continuemanaging your care, including your bleeding, dizziness, and breast reduction consultation. - If you experience worsening symptoms or have any new concerns before then, please contact our office. You have been referred to a subspecialty clinic or community resource. Call the number(s) below to schedule an appointment or for more information. Pacheco sido derivado a leon cl??jah de subespecialidad o recurso comunitario. Llamea los n??meros a continuaci??n para hacer leon neema o para obtener m??s informaci??n. documented in this encounter Progress Notes * Chio Mcintyre MD - 02/18/2025 1:45 PM PDT Justus Nagy is a 19 y.o. adult. History was provided by the Patient. Chief complaint: Chief Complaint Patient presents with Menorrhagia Interval History/HPI: HPI Justus is a 19 y.o with PMH of ADHD and POTS presenting with a 12 day history of vaginal bleeding. Justus's last period was in August. Justus began taking Depo injection on December 28, 2024. Prior to starting their period Early had cramps for which they used heating pads. First 12 days Early changed their cup 4-5 times daily, and last 3 days they changed the cup 2-3 tomes. Today Justus changed their cup 2 times. Justus had concerns regarding her anemia and has been drinking kale smoothies. Justus has POTS and experiences dizziness, however it has been above her baseline during the last 12 days. Justus has been experiencing hair loss and shaved her hair off 3 weeks ago. They leave for college in 5 weeks. Justus is also interested in breast reduction surgery in [place] after graduating college in 5 weeks. Justus attends college in [place] and has a PCP there. They have an appointment scheduled in April. History of Present Illness Justus Nagy is a 19-year-old with a history of ADHD and POTS, presenting with concerns about prolonged vaginal bleeding and breast reduction. Justus reports 12 days of vaginal bleeding. Their last menstrual period was in August, and they received their first Depo-Provera injection in November. They were advised that the injections would be administered every 3 months. During the first 8 days of bleeding, they used menstrual cups, changing them 4-5 times daily. Over the last 3 days, they have changed the cups 2-3 times daily, and today, only twice. They express concern about potential anemia and have been consuming kale. They note increased dizziness over the past 12 days, which is more pronounced than their baseline dizziness associated with POTS. They experienced pain prior to the onset of bleeding and have been using pads and heating pads for relief. They mention a history of chronic painsince jack COVID-19. Additionally, Justus reports hair loss beginning 3 weeks ago, prompting them to shave their head. They are uncertain if this is related to their current symptoms. They are scheduled to return to college in [place] in 5 weeks and have a primary care provider there. Justus also inquires about breast reduction surgery due to back pain. They have not had a bowel movement in 1 week but have been taking Miralax 1 capsule daily for the past 5 days, anticipating improvement. I obtained consent from the Patient or Surrogate Decision Maker, as well as from all individuals accompanying the patient, to record and utilize a fire warden to assist with the creation of documentation of the visit. I also obtained consent from any others recorded during the encounter. Review of Systems Constitutional: Positive for appetite change. Negative for fever and unexpected weight change. HENT: Positive for sneezing. Negative for rhinorrhea and sore throat. Eyes: Negative for pain, discharge, redness and itching. Respiratory: Negative for cough and wheezing. Gastrointestinal: Positive for abdominal pain, constipation and nausea. Negative for diarrhea and vomiting. Genitourinary: Positive for vaginal bleeding. Negative for decreased urine volume, dysuria and pelvic pain. Musculoskeletal: Negative for arthralgias. Skin: Negative for rash. Neurological: Positive for dizziness. Negative for syncope. Allergies: Tucker and derivatives, Tomato, Grapefruit, Pineapple, Adhesive, Milk, and Radish Objective: BP 124/75 Pulse 92 Temp 37.1 ??C (98.8 ??F) Resp 20 Pain Score: 2 Location: Abdomen WT: Facility age limit for growth %abe is 20 years. HT: Facility age limit for growth %abe is 20 years. HC: Facility age limit for growth %abe is 20 years. BMI: No height and weight on file for this encounter. BP: Growth %ile Smart[employer] can only be used for patients less than 20 years old., BP reviewed, no action needed Physical Exam Constitutional: Appearance: Normal appearance. Justus is normal weight. HENT: Head: Normocephalic and atraumatic. Right Ear: Tympanic membrane, ear canal and external ear normal. Left Ear: Tympanic membrane, ear canal and external ear normal. Nose: Nose normal. Eyes: Extraocular Movements: Extraocular movements intact. Conjunctiva/sclera: Conjunctivae normal. Pupils: Pupils are equal, round, and reactive to light. Cardiovascular: Rate and Rhythm: Normal rate and regular rhythm. Heart sounds: Normal heart sounds. No murmur heard. No friction rub. Pulmonary: Effort: Pulmonary effort is normal. Breath sounds: Normal breath sounds. Abdominal: Palpations: Abdomen is soft. Tenderness: There is abdominal tenderness. Musculoskeletal: Cervical back: Normal range of motion. Skin: General: Skin is warm and dry. Neurological: Mental Status: Justus is alert and oriented to person, place, and time. Psychiatric: Mood and Affect: Mood normal. Assessment: Justus is a 19 y.o. adult with PMH of ADHD and POTS Assessment/Plan # Menstrual bleeding problem (N92.6) Patient has experienced 12 days of vaginal bleeding following their first Depo- Provera injection in[place]. No menstrual period since August prior to this episode. Increased dizziness noted, more than baseline associated with POTS. Concerns about potential anemia due to prolonged bleeding. Physical exam reveals abdominal discomfort with rebound tenderness, clear lung sounds, no heart murmurs, and erythematous ear canals. - Initiated oral medroxyprogesterone therapy. - Advised patient to follow up with PCP in [place] for ongoing management and to discuss the option of continuing Depo-Provera versus oral progestin therapy. - Discussed potential need for plastic surgery consultation for breast reduction due to back pain; Consultation to be locally as Early will return to the area after graduating college in [place] NOVEMBER 2025 - [facility] Spears. Assessment/Plan # Menstrual bleeding problem (N92.6) Patient has experienced 12 days of vaginal bleeding [place] No menstrual period since August prior to this episode. Increased dizziness noted, more than baseline associated with POTS. Concerns about potential anemia due to prolonged bleeding. Physical exam reveals abdominal discomfort with rebound tenderness, clear lung sounds, no heart murmurs, and erythematous ear canals. - Administered Depo-Provera injection in clinic. - Initiated oral medroxyprogesterone therapy. - Advised patient to follow up with PCP in [place] for ongoing management and to discuss the option of continuing Depo-Provera versus oral progestin therapy. - Discussed potential need for plastic surgery consultation for breast reduction due to back pain; will determine if consultation should occur in [place] or locally. Plan: Immunization Status: Not discussed, address at next visit. Dental: N/A Problem List Items Addressed This Visit None Visit Diagnoses Menstrual bleeding problem Relevant Orders POC HEMOGLOBIN (HEMOCUE) (Completed) Ambulatory Referral to Plastic Surgery Return in about 2 weeks (around 03/04/2025) for Please schedule with daisy at [facility] clinic for follow-up menstrual management. Future Appointments Date Time Provider Department Center 03/18/2025 10:30 AM Delio Fajardo MD [facility] Enrolled Chio Mcintyre MD Cosigned by Daisy Spears MD at 03/09/2025 9:04 PM PDT Associated attestation - Daisy Spears MD - 03/09/2025 9:04 PM PDT 03/09/25 ATTESTATION: My date of service is 02/18/2025. I was present for hitchcock portions of the encounter and am personally involved in the management of the patient. I reviewed, verified, and revised the note as necessary. - medroxyprogesterone 5mg for menstrual suppression, will follow-up in [facility] - Referral to plastic surgery and adult gender clinic for discussion of gender- affirming surgeries. Daisy Spears MD 03/09/2025 documented in this encounter Miscellaneous Notes * Addendum Note - Daisy Spears MD - 02/18/2025 1:45 PM PDTAddended by: DAISY SPEARS on: 03/09/2025 09:06 PM Modules accepted: Orders, Level of Service documented in this encounter Plan of Treatment Scheduled Referrals Name Type Priority Associated Diagnoses Order Schedule Ambulatory Referral to Plastic Surgery Outpatient Referral Routine Menstrual bleeding problem Expected: 02/18/2025 (Approximate), Expires: 02/18/2026 documented as of this encounter Procedures Procedure Name Priority Date/Time Associated Diagnosis Comments HC BLOOD COUNT HEMOGLOBIN 134 Routine 02/18/2025 2:19 PM PDT documented in this encounter Results * POC Hemoglobin (02/18/2025 2:19 PM PDT) [facility] Signature Hemoglobin 12.0 g/dL 02/19/2025 8:37 AM PDT [facility] Blood BLOOD SPECIMEN / Unknown 02/18/2025 2:19 PM PDT 02/19/2025 8:37 AM PDT Narrative [facility] - 02/19/2025 8:37 AM PDT Performed at [facility] Performed by Giselle Beck Patient may be transgender or non-binary/gender expansive. The reference interval attached to this test result is based on the lowest and highest reference interval value considering both female and male reference intervals. The reference intervals for some or all test results may be impacted. Please verify if hormone therapy is used, and use appropriate reference interval for the hormonal gender ([place]: [email or web address] [place]: [email or web address]). Chio Mcintyre MD POCT ORDERABLES - NO CE Final Result [facility] [address] [place] [address], [address] documented in this encounter Visit Diagnoses Diagnosis Menstrual bleeding problem Unspecified disorder of menstruation and other abnormal bleeding from female genital tract Anxiety Anxiety state, unspecified documented in this encounter Care Teams Gas Meter Repairer Relationship Specialty Start Date End Date Provider, None Per Patient PCP - General 01/07/25 documented as of this encounter
--- OUTSIDE RECORDS SUMMARY | 2025-03-05 16:00 | XMS_ITS | Encounter Summary ---
Author Organization [facility], [facility], [facility], and Affiliates Address [address] 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 Yes - Is plugged into therapy Does patient have medical clearance referral letter on file? 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 No 09/21/2023 Comments No Sex and Gender Information Value Date Recorded Sex Assigned at Female 08/25/2022 4:24 PM PST Legal Sex Female 2:42 PM PST Gender Identity Nonbinary / Gender Queer 023 4:24 PM PST Sexual Orientation Queer 07/04/2023 8: 54 AM PST documented as of this encounter Last Filed Vital Signs Vital Sign Reading Time Taken Comments Blood Pressure 119/72 03/05/2025 1:57 PM PDT Pulse 92 03/05/2025 1:57 PM PDT Temperature 36.7 C (98.1 F) 03/05/2025 1:57 PM PDT Respiratory Rate 18 03/05/2025 1:57 PM PDT Oxygen Saturation - - Inhaled Oxygen Concentration - - Weight 121.9 kg (268 lb 11.9 oz) 03/05/2025 1:57 PM PDT Height 173.3 cm (5' 8.23) 03/05/2025 1:57 PM PD T Body Mass Index 40.59 03/05/2025 1:57 PM PDT documented in this encounter Progress Notes * Fito Farah - 03/05/2025 2:00 PM PDT Justus Nagy is a 19 y.o. adult. Chief complaint: Chief Complaint Patient presents with Follow-up Periods Interval History/HPI: Justus is a 19 y.o. adult with PMH of ADHD and POTS, presenting for follow up for menorrhagia after starting oral medroxyprogesterone for menstrual suppression. Patient started provera on 02/18 and reports that bleeding has stopped since then. They are tolerating the medication well and expressed a lot of relief from menstrual suppression. They do not have any other side effects from the medication, and deny spotting cramping, nausea, vomiting, abdominal pain, or headaches aside from baseline. They have no trouble with taking the provera and are able to take it daily alongside other meds. Patient expressed concern about demineralization in association with provera and would like to start on vitamin D + calcium supplements, was unable to refill last prescription. Following up on gender dysphoria, patient expresses that they would still like to get plugged into gender clinic. They are still exploring their identity on the spectrum of being non-binary to identifying as male, and would like more support with resources. Patient is still considering options of breast reduction vs top surgery, and would like further consultation with gender clinic and plastic surgery before making a decision. Review of Systems Constitutional: Negative for activity change, appetite change, chills, fatigue, fever and unexpected weight change. HENT: Negative for sore throat. Respiratory: Negative for cough and shortness of breath. Cardiovascular: Negative for chest pain. Gastrointestinal: Positive for constipation. Negative for abdominal pain, blood in stool and diarrhea. Genitourinary: Negative for difficulty urinating, dysuria, frequency and hematuria. Menstrual History: Patient's last menstrual period was 02/09/2025 (exact date). Allergies: [place] and derivatives, Tomato, Grapefruit, Pineapple, Adhesive, Milk, and Radish Document Housing Status in Specialty Tools Objective: BP 119/72 (BP Location: Right upper arm, Patient Position: Sitting) Pulse 92 Temp 36.7 ??C (98.1 ??F) (Temporal) Resp 18 Ht 173.3 cm (5' 8.23) Wt (!) 121.9 kg (268 lb 11.9 oz) LMP 02/09/2025 (Exact Date) BMI 40.59 kg/m?? Pain Score: 0 Location: WT: Facility age limit for growth %abe is 20 years. . HT: Facility age limit for growth %abe is 20 years. BMI: Facility age limit for growth %abe is 20 years., BMI > or = 95th; diabetes testing and education provided. BP: Growth %ile [employer] can only be used for patients less than 20 years old., BP reviewed, no action needed Physical Exam Constitutional: Appearance: Normal appearance. Cardiovascular: Rate and Rhythm: Normal rate and regular rhythm. Pulses: Normal pulses. Heart sounds: Normal heart sounds. No murmur heard. No gallop. Pulmonary: Effort: Pulmonary effort is normal. No respiratory distress. Breath sounds: Normal breath sounds. No stridor. No wheezing or rhonchi. Abdominal: General: Abdomen is flat. There is no distension. Palpations: Abdomen is soft. Tenderness: There is no abdominal tenderness. There is no guarding or rebound. Neurological: Mental Status: Early is alert. Assessment: Early Nagy is a 19 y.o. adult with a past medical history of ADHD, POTS, and menorrhagia who is presenting to clinic for follow up after starting oral medroxyprogesterone for menstrual suppression.Patient is overall doing better and tolerating the medication well with no side effects. Discussed staying at 5 mg dose for continued therapeutic effect. Also discussed establishing care with gender clinic in [place], where patient will be until November 2025 for their last year of college. Patient isopen to establishing care around their campus, while remaining on the wait list for gender clinic at [facility]. Patient to receive meningitis vaccine today. Plan: Problem List Items Addressed This Visit None Visit Diagnoses Need for meningococcal vaccination - Primary Relevant Medications meningococcal B vacc,4-component (BEXSERO) injection 0.5 mL (Completed) Immunization Status: Risks and benefits of vaccines discussed. Immunizations given. Justus Nagy - is not currently - does not have any significant illness that contraindicates vaccination - is not allergic to any of the vaccine components - has not had a serious vaccine reaction in the past - has not received blood products in the last 4 months - has not received IVIG within a timeframe that would compromise vaccine administration - has not been diagnosed with Guillan Burnett Syndrome - is not taking oral steroids or other immunosuppressive medications - has not received any live virus vaccinations in the last 28 days Dental: N/A No follow-ups on file. Fito Farah, MS3 Cosigned by Ela Spears MD at 03/10/2025 10:27 AM PDT Associated attestation - Ela Spears MD - 03/10/2025 10:27 AM PDT 03/10/25 ATTESTATION: My date of service is 03/05/2025. I was present for the visit and am personally involved in the management of the patient. I performed the medical decision- making portions of the service and reviewed, verified, and revised the note as necessary. - Continue provera for menstrual management - Refilled ADHD medication prior to going to school - refilled vitamin D/calcium - referral to adult gender clinic for surgery options. 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 Expected: 03/05/2025 (Approximate), Expires: 03/05/2026 documented as of this encounter Visit Diagnoses Diagnosis Need for meningococcal vaccination- Primary Need for other specified prophylactic vaccination against single bacterial disease Menstrual bleeding problem Unspecified disorder of menstruation and other abnormal bleeding from female genital tract Attention deficit hyperactivity disorder (ADHD), 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
[2025-04-17 13:52] VITALS: BP 126/87; PULSE 98; RESP 16; TEMP 36.6; O2SAT 96; BMI 39.9
--- NOTE | 2025-04-17 14:00 | CRLHL7_ITS ---
For Patients: As a result of the Century Cures Act, medical imaging exams and procedure reports are released immediately into your electronic medical record. You may view this report before your referring provider. If you have questions, please contact your health care provider. Indication: Ankle injury, pain, discomfort Technique: Left ankle 3 views. Comparison: None Findings: Bones: Alignment is normal. No acute fracture. Small incidental ossicle adjacent to the anterior tibiotalar joint. Joint spaces: Unremarkable. Soft tissues: Unremarkable. Impression: No sign of acute injury. Dictated by Sin Oquendo MD @ 04/17/2025 2:41:54 PM (Electronically Signed)
--- NOTE | 2025-04-17 14:20 | ED.LOWEXIN ---
HPI - Extremity Injury (Lower) General Time Seen by Provider: 14:20 Date Seen: 04/17/25 Chief Complaint: Extremity Pain/Injury, Lower Stated Complaint: ankle injury Time Seen by Provider: 04/17/25 13:42 Source: patient and RN notes reviewed Mode of arrival: ambulatory Limitations: no limitations History of Present Illness HPI Narrative: This 19-year-old female from [facility] is brought in by EMS with left ankle injury. She was going down stairs at school and passed out. She has no neurologic cardiogenic syncope. EMS gave her 100 mcg of fentanyl IV, 1000 mg IV Tylenol and 2 mg IV morphine EN route. She states nobody witnessed the injury. She has not fainted in about 6 months. She is not sure if just having excessive heat here, coming back to a different elevation, coming back to school may have all affected things. She has been trying to set up just getting IV fluids every 2 weeks, has seem to help her with her symptoms. She feels she gets relatively dehydrated even despite trying to keep enough oral fluids in. She has a 32 oz bottle of water with her which she tries to drink. She has not been sick with anything, no cough or cold symptoms, no illness. She has no other reported injuries right now. She cannot bear weight on the left ankle, states it hurts on both the inside and outside of the ankle. No drug use, no alcohol use. Related Data Home Medications ?Medication ?Instructions ?Recorded ?Confirmed fluticasone propionate 50 1 spray intranasal DAILY 06/19/22 11/03/23 mcg/actuation nasal spray,suspension loratadine 10 mg tablet 10 mg PO DAILY 06/19/22 11/03/23 sertraline 100 mg tablet (Zoloft) 100 mg PO Q24H 06/19/22 12/14/24 sertraline 25 mg tablet (Zoloft) 25 mg PO DAILY 06/19/22 11/03/23 dextroamphetamine-amphetamine ER 1 cap PO DAILY 12/15/22 11/03/23 10 mg 24hr capsule,extend release (Adderall XR) hydroxyzine HCl 25 mg tablet 25 - 50 mg PO DAILY PRN anxiety 04/13/23 12/14/24 albuterol sulfate 90 mcg/actuation inhalation 09/19/23 11/03/23 aerosol inhaler cholecalciferol (vitamin D3) 25 PO 09/19/23 11/03/23 mcg (1,000 unit) tablet hydroxyzine pamoate 25 mg capsule 25 mg PO DAILY PRN 09/19/23 11/03/23 Previous Rx's ?Medication ?Instructions ?Recorded albuterol sulfate 90 mcg/actuation 2 puff inhalation Q4-6H PRN 10/10/23 aerosol inhaler shortness of breath or wheezing #6.7 grams Allergies Allergy/AdvReac Type Severity Reaction Status Date / Time [place] And Derivatives Allergy Severe Anaphylaxis Verified 11/03/23 18:11 tomato Allergy Intermediate Rash Verified 11/03/23 18:11 adhesive Allergy Unknown Verified 11/03/23 18:11 grapefruit Allergy Unknown Rash Verified 11/03/23 18:11 pineapple Allergy Unknown Rash Verified 11/03/23 18:11 dairy Allergy Intermediate Gi Uncoded 11/03/23 18:11 intolerance Review of Systems Status of ROS: Reports: 6 or more systems reviewed and unremarkable except as noted in History and below [facility] Medical History Seasonal allergies ?J30.2 - Other seasonal allergic rhinitis (ICD-10) Fainting ?R55 - Syncope and collapse (ICD-10) Anxiety and depression ?F41.9 - Anxiety disorder, unspecified (ICD-10) ?F32.A - Depression, unspecified (ICD-10) Asthma ?J45.909 - Unspecified asthma, uncomplicated (ICD-10) Anemia ?D64.9 - Anemia, unspecified (ICD-10) Surgical History History of wisdom tooth extraction ?K08.409 - Partial loss of teeth, unspecified cause, unspecified class (ICD-10) Social History Smoking Status: Never smoker Do you use any of these nicotine containing products: None and Vaping Products Second hand tobacco smoke exposure: No How often do you have a drink containing alcohol: never How often do you have six or more drinks on one occasion: Never AUDIT-C Alcohol total score: 0 Non-prescribed substance use: denies use service: No Exam Const: Vital Signs, click to edit/add: Vital Signs - 24 hr 04/17/25 13:52 04/17/25 14:42 04/17/25 14:45 Temperature 97.9 F Pulse Rate 95 92 Pulse Rate [Pulse Oximeter] 98 Respiratory Rate 16 Blood Pressure Blood Pressure [Ri ght Upper Arm] 126/87 Pulse Oximetry 96 96 97 Oxygen Delivery Me thod Room Air 04/17/25 15:00 04/17/25 15:14 Temperature Pulse Rate 86 Pulse Rate [Pulse Oximeter] Respiratory Rate Blood Pressure 137/88 Blood Pressure [Ri ght Upper Arm] Pulse Oximetry 98 Oxygen Delivery Me thod This 19-year-old female is alert, interactive, no apparent distress. She is seeing exam room 7. Face head atraumatic. Sclera clear. Lungs are clear, good air entry, no wheezing or crackles, no tachypnea, no accessory muscle use. CV regular rate and rhythm, no murmur, normal S1-S2, no S3-S4. Abdomen soft, nontender, nondistended, no organomegaly. No pain on palpation of her pelvis. She has no pain through her hips, thighs knees or lower extremities until you get to her left ankle. She has diffuse tenderness and is definitely quite tender when I palpate over the lateral malleolus, medial malleolus, the anterior joint line. Pulses are symmetric in her feet, she has normal warmth of her toes, normal cap refill bilaterally. She does not want to move the toes, the foot or the ankle at all on the left side, states it hurts in the ankle. There is little swelling that is noticed anteriorly to the left lateral malleolus. She has no complaints in her upper extremities. Documenting provider has reviewed patient's vital signs: yes Course Course ED Course: Nursing staff did appropriately order three view ankle x-ray after triage. I have taken a preliminary look at that and I do not see any fracture. We did take down the splint she had on from EMS. We discussed management if this is a sprain. We also discussed crutch use and my concerns with her syncope. We will give her L of fluids as she does feel this helps her syncopal disorder. It certainly is possible that she could be relatively dehydrated with the extremely warm weather we are having. She will continue to try to drink her oral fluids as well. Reevaluation(s) Time of Reevaluation #1: 15:28 Reevaluation #1: Patient is where the radiologist over read is negative for fracture. Discussed Tio wrapping for comfort. She states she needs something with more stability than that. We do not have stirrup splints here. We can provide a cam walker. She states she is not going to be able to move her leg without something quite stable. Thus, feel like we half to provide a cam walker. We have already brought crutches into her. Vital Signs Vital signs: Initial Vital Signs Temperature 97.9 F 04/17/25 13:52 Temperature Source Temporal Artery Scan 04/17/25 13:52 Pulse Rate 98 04/17/25 13:52 Respiratory Rate 16 04/17/25 13:52 Blood Pressure 126/87 04/17/25 13:52 Blood Pressure Mean 100 04/17/25 13:52 Blood Pressure Position Sitting 04/17/25 13:52 Pulse Oximetry 96 04/17/25 13:52 Oxygen Delivery Method Room Air 04/17/25 13:52 Vital Signs Temperature 97.9 F 04/17/25 13:52 Pulse Rate 98 04/17/25 13:52 Respiratory Rate 16 04/17/25 13:52 Blood Pressure 126/87 04/17/25 13:52 Pulse Oximetry 96 04/17/25 13:52 Oxygen Delivery Method Room Air 04/17/25 13:52 Temperature 97.9 F 04/17/25 13:52 Pulse Rate 86 04/17/25 15:00 Respiratory Rate 16 04/17/25 13:52 Blood Pressure 137/88 04/17/25 15:14 Pulse Oximetry 98 04/17/25 15:00 Oxygen Delivery Method Room Air 04/17/25 13:52 Medications Administered Medications: Generic Name Dose Route Start Last Admin Trade Name Freq PRN Reason Stop Dose Admin Sodium Chloride 1,000 mls @ 1,000 mls/hr 04/17/25 14:29 04/17/25 14:45 0.9 % Sodium Chloride 1000 Ml IV 04/17/25 15:28 1,000 mls/hr .Q1H DANYEL Administration MDM - Extremity Injury (Lower) Imaging Data XR left ankle: Attestation: I have reviewed the pertinent imaging results. My impression: I do not appreciate any acute fracture or traumatic change of my preliminary review. Radiologist's impression: Patient: [facility] [place] Facility:?[facility] Patient ID:?[id number] Site Patient ID:?[id number]. Site :?[id number] Study:?XRay-Extremity Left Ankle-04/17/2025 2:18:08 PM Ordering Physician:Ronny Thomas Final Report: Indication: Ankle injury, pain, discomfort Technique: Left ankle 3 views. Comparison: None Findings: Bones: Alignment is normal. No acute fracture. Small incidental ossicle adjacent to the anterior tibiotalar joint. Joint spaces: Unremarkable. Soft tissues: Unremarkable. Impression: No sign of acute injury. Dictated by Sin Oquendo MD @ 04/17/2025 2:41:54 PM (Electronic Signature) Discharge Plan Discharge Clinical Impression: Ankle sprain and strain Patient Disposition: Home, Self-Care Condition: Stable Instructions: Ankle Sprain (ED) Additional Instructions: Use crutches an boot as needed for comfort. You can start ambulating as soon as you are able to without pain. Ice and elevate your leg as much as you can to help decrease pain and swelling. Tylenol and ibuprofen per bottle directions for pain management. Follow-up with nurse practitioner at school if not improving over the next week. If you are having further issues or concerns, may need to see Orthopedics for further evaluation. Activity Level: Activity as Tolerated Prescriptions: No Action albuterol sulfate 90 mcg/actuation HFA aerosol inhaler 2 puff inhalation Q4-6H PRN (Reason: shortness of breath or wheezing) Qty: 6.7 0RF fluticasone propionate 50 mcg/actuation spray,suspension 1 spray INTRANASAL DAILY Patient Comments: INSTILL 1 SPRAY INTO AFFECTED NOSTRIL/S DAILY loratadine 10 mg tablet 10 mg PO DAILY Patient Comments: TAKE 1 TABLET (10 MG TOTAL) BY MOUTH DAILY sertraline [Zoloft] 100 mg tablet 100 mg PO Q24H sertraline [Zoloft] 25 mg tablet 25 mg PO DAILY albuterol sulfate 90 mcg/actuation HFA aerosol inhaler inhalation hydroxyzine pamoate 25 mg capsule 25 mg PO DAILY PRN cholecalciferol (vitamin D3) 25 mcg (1,000 unit) tablet PO dextroamphetamine-amphetamine [Adderall XR] 10 mg capsule,extended release 24hr 1 cap PO DAILY hydroxyzine HCl 25 mg tablet 25 - 50 mg PO DAILY PRN (Reason: anxiety) Follow Up/Referrals: Evelia Garcia MD [Primary Care Provider, Family Practice] Stand Alone Forms: [employer] Info Instructions
[2025-04-17 14:42] VITALS: PULSE 95; O2SAT 96
[2025-04-17 14:45] VITALS: PULSE 92; O2SAT 97
[2025-04-17 15:00] VITALS: PULSE 86; O2SAT 98
--- OUTSIDE RECORDS SUMMARY | 2025-04-17 15:01 | XMS_ITS | Encounter Summary ---
Author Organization [facility], [facility], [facility], and Affiliates Address [address] [place] [address] Care Team Providers Care Occupational Health And Safety Manager Name Role Phone Tamera Barnard MD Primary Care Provider Provider, None Per Patient Primary Care Provider Encounter Details Date Type Department Care Team ([facility] st Contact Info) Description 01/02/2025 Results Follow-Up [facility] Medicine [address] [place] [address] Marcelle Jameson MD [address] [place] [address] Social History Tobacco Use Types Packs/Day Years Used Date Smoking Tobacco: Some Days Vape Passive Smoke Exposure: Never Smokeless Tobacco: Never Comments:Occasional vaping Alcohol Use Standard Drinks/Week Comments Never 0 (1 standard drink = 0.6 oz pur e alcohol) [facility] Utilities Answer Date Recorded In the past 12 months has [facility] [place], oil, or water [employer] threatened to shut off services in your [...] place to sleep or slept in a half-way (including now)? No 09/21/2023 Comments No Sex and Gender Information Value Date Recorded Sex Assigned at Female 08/25/2022 4:24 PM PST Legal Sex Female 2:42 PM PST Gender Identity Nonbinary / Gender Queer 023 4:24 PM PST Sexual Orientation Queer 07/04/2023 8: 54 AM PST documented as of this encounter Plan of Treatment Not on file documented as of this encounter Visit Diagnoses Not on filedocumented in this encounter Care Teams Occupational Health And Safety Manager Relationship Specialty Start Date End Date Tamera Barnard MD PCP - General Pediatrics 04/18/21 01/06/25 Provider, None Per Patient PCP - General 01/07/25 documented as of this encounter
--- OUTSIDE RECORDS SUMMARY | 2025-04-17 15:01 | XMS_ITS | Clinical Summary ---
Author Organization [facility] Address [address], [address] [place] [address] Care Team Providers Care Carpet Winder Name Role Phone PCP NOT ASSIGNED (Assignment Exception - NOPCP), PCP Primary Care Physician Unavailable [facility] Attending Clinician U navailable [facility] Admitting Clinician U navailable Problems This patient has no known problems. Allergies, Adverse Reactions, Alerts This patient has no known allergies or adverse reactions. Procedures Procedure Date / Time Performed Performing Clinicia n Device Other specified case management service not elsewhere classified 2025-02-26 00:00:00 [facility], Other specified case management service not elsewhere classified 2025-01-29 00:00:00 [facility], Other specified case management service not elsewhere classified 2025-01-09 00:00:00 [facility], Other specified case management service not elsewhere classified 2025-01-03 00:00:00 [facility], Other specified case management service not elsewhere classified 2024-11-21 00:00:00 [facility], Other specified case management service not elsewhere classified 2024-09-20 00:00:00 [facility], Other specified case management service not elsewhere classified 2024-08-17 00:00:00 [facility], Encounters Start Date/Time End Date/Time Encounter Type Admission Type Attending [facility] [place] Facility Care Department Encounter ID 2025-02-26 00:00:00 Professional Claim [facility], [place] Unknown [id number] 2025-01-29 00:00:00 Professional Claim [facility], [place] Unknown [id number] 2025-01-09 00:00:00 Professional Claim [facility], [place] Unknown [id number] 2025-01-03 00:00:00 Professional Claim [facility], [place] Unknown [id number] 2024-11-21 00:00:00 Professional Claim [facility] Shaila CHO Unknown [id number] 2024-09-20 00:00:00 Professional Claim [facility] Shaila CHO Unknown [id number] 2024-08-17 00:00:00 Professional Claim [facility] Shaila CHO Unknown [id number] Results [facility] Results SEX HORMONE BINDING GLOBULIN???2024-12-30 00:00:00 Test Item Value Reference Range Comments Sex hormone binding globulin [Moles/volume] in Serum or Plasma 22 nmol/L 17-HYDROXYPROGESTERONE???2024-12-30 00:00:00 Test Item Value Reference Range Comments 17-Hydroxyprogesterone [Mass /volume] in Serum or Plasma 99 ng/dL JUAN RAMON GRASS (G6) IGE???2024-08-06 00:00:00 Test Item Value Reference Range Comments Juan Ramon IgE Ab [Units/volume] in Serum <0.10 kU/L BIRCH (T3) IGE???2024-08-06 00:00:00 Test Item Value Reference Range Comments Silver Birch IgE Ab [Units/volume] in Serum <0.10 kU/L COMMON RAGWEED (SHORT) (W1) IGE???2024-08-06 00:00:00 Test Item Value Reference Range Comments Common Ragweed IgE Ab [Units/volume] in Serum <0.10 kU /L Assessments Condition Name Status Diagnosis Date Treating Cl inician Encounter for screening exam ination for mental health and behavioral disorders, unspecified Unknown Encounter for screening exam ination for mental health and behavioral disorders, unspecified Unknown Encounter for screening exam ination for mental health and behavioral disorders, unspecified Unknown Encounter for screening exam ination for mental health and behavioral disorders, unspecified Unknown Encounter for screening exam ination for mental health and behavioral disorders, unspecified Unknown Encounter for screening exam ination for mental health and behavioral disorders, unspecified Unknown Encounter for screening exam ination for mental health and behavioral disorders, unspecified Unknown
--- OUTSIDE RECORDS SUMMARY | 2025-04-17 15:01 | XMS_ITS | Encounter Summary ---
Author Organization [facility], [facility], [facility], and Affiliates Address [address] [place] [address] Care Team Providers Care Medical Device Name Role Phone Tamera Barnard MD Primary Care Provider Provider, None Per Patient Primary Care Provider Encounter Details Date Type Department Care Team ([facility] st Contact Info) Description 07/30/2021 Orders Only [facility] Pediatric Medicine [address] [place] [address] Tamera Barnard MD [address] [place] [address] Anxiety Social History Tobacco Use Types Packs/Day Years Used Date Smoking Tobacco: Never Smokeless Tobacco: Never Alcohol Use Standard Drinks/Week Comments Never 0 (1 standard drink = 0.6 oz pur e alcohol) AUDIT-C Answer Date Recorded Frequency of Alcohol Consumption Never 12/18/2019 Average Number of Drinks Not on file 020 Frequency of Binge Drinking Not on file 11/29 Overall Financial Resource Strain (CARDIA) Answe r Date Recorded Difficulty of Paying Living Expenses Not hard at all 12/18/2019 Hunger Vital Sign Answer Date Recorded Worried About Running Out of Food in the Last Ye ar Never true 12/18/2019 Ran Out of Food in the Last Year Never true 12/18/2019 PRAPARE - Transportation Answer Date Re corded Lack of Transportation (Medical) No 12/18/2019 Lack of Transportation (Non-Medical) No 12/18/2019 Comments No Sex and Gender Information Value Date Recorded Sex Assigned at Female 08/25/2022 4:24 PM PST Legal Sex Female 2:42 PM PST Gender Identity Nonbinary / Gender Queer 023 4:24 PM PST Sexual Orientation Queer 07/04/2023 8: 54 AM PST documented as of this encounter Plan of Treatment Not on file documented as of this encounter Visit Diagnoses Diagnosis Anxiety Anxiety state, unspecified documented in this encounter Care Teams Medical Device Relationship Specialty Start Date End Date Tamera Barnard MD PCP - General Pediatrics 04/18/21 01/06/25 Provider, None Per Patient PCP - General 01/07/25 documented as of this encounter
--- OUTSIDE RECORDS SUMMARY | 2025-04-17 15:02 | XMS_ITS | Clinical Summary ---
Author Organization [facility], [facility], [facility], and Affiliates Address [address] [place] [address] Care Team Providers Care Radiation / Chemistry Technician Name Role Phone Provider, None Per Patient Primary Care Provider Allergies Active Allergy Reactions Criticality Noted Date Comments Adhesive Unknown 04/13/2023 [place] And Derivatives Anaphylaxis High 12/15/2022 Grapefruit Other (See Comments),Rash Medium 04/20/2022 Milk Abdominal Pain 11/29/2019 Pineapple Hives,Rash Medium 03/09/2022 Radish Itching Low 08/04/2023 Tomato Itching,Rash High 10/12/2022 Medications * This document contains information received from the source organization and may not represent a complete record from that organization. albuterol 90 mcg/actuation metered dose inhalerIndicatio ns:Wheeze Inhale 2 puffs into the lungs every 4 (four) hours as needed for Wheezing 1 each 12/30/19 24 Active inhalational spacing device (AEROCHAMBER MV) inhalerIndicatio ns:Wheeze Use as instructed 1 each 3 07/16/20 24 Active sertraline (ZOLOFT) 100 mg tabletIndication s:Anxiety Take 1 tablet (=100 mg) daily by mouth for total daily dose of Zoloft 125 mg per day. 90 tablet 1 07/16/20 24 Active budesonide-formo terol (SYMBICORT) 80-4.5 mcg/actuation inhaler Inhale 2 puffs into the lungs every 4 (four) hours as needed 07/02/20 24 Active EPINEPHrine (EPIPEN) 0.3 mg/0.3 mL injection Inject 1 Pen into the muscle daily as needed 07/02/20 24 Active hydrOXYzine (ATARAX) 50 mg tablet Take 1 tablet (50 mg total) by mouth 2 (two) times daily as needed 07/05/20 24 Active ondansetron (ZOFRAN-ODT) 4 mg rapid dissolve tablet Place 1 tablet (4 mg total) under the tongue every 8 (eight) hours as needed 07/04/20 24 Active omeprazole (PRILOSEC) 20 mg capsule Take 1 capsule (20 mg total) by mouth 2 (two) times daily 06/21/20 24 Active polyethylene glycol (MIRALAX) 17 gram/dose powderIndication s:Constipation, unspecified constipation type Take 17 g by mouth in the morning and 17 g in the evening. 850 g 1 07/27/20 24 Active loratadine (CLARITIN) 10 mg tablet Take 1 tablet (10 mg total) by mouth daily 90 tablet 1 02/07/20 25 Active methylphenidate HCl 27 mg 24 hr ER tabletIndication s:Attention deficit hyperactivity disorder (ADHD), predominantly inattentive type Take 1 tablet (27 mg total) by mouth every morning 30 tablet 03/30/20 25 2024 Active calcium carbonate-vitami n D (CALCIUM 500 + D) 1,250 mg (500 mg elemental)-200 unit tabletIndication s:Dysmenorrhea Take 1 tablet by mouth in the morning and 1 tablet in the evening. Take with meals. 60 tablet 3 03/10/20 25 Active hydrOXYzine (VISTARIL) 25 mg capsuleIndicatio ns:Anxiety TAKE 1 CAPSULE BY MOUTH NIGHTLY NEEDED FOR ITCHING FOR UP TO 60 DOSES 30 capsule 1 03/21/20 25 Active medroxyPROGESTER one (PROVERA) 5 mg tabletIndication s:Menstrual bleeding problem Take 1 tablet (5 mg total) by mouth daily 30 tablet 3 04/12/20 25 Active medroxyPROGESTER one (PROVERA) 5 mg tabletIndication s:Menstrual bleeding problem Take 1 tablet (5 mg total) by mouth daily 30 tablet 3 03/05/20 25 2024 Discontinued(R eorder - no eCancel/exclud e from AVS) hydrOXYzine (VISTARIL) 25 mg capsuleIndicatio ns:Anxiety Take 2 capsules (50 mg total) by mouth nightly as needed for Itching for up to 60 doses 30 capsule 1 03/09/20 25 2024 Discontinued Active Problems Problem Noted Date Diagnosed Date Vitamin D deficiency 01/11/2025 Seizure-like activity (CMS code) 08/04/2023 Eating disorder 03/31/2023 Nausea 03/03/2023 Vasovagal syncope 03/03/2023 Controlled substance agreement signed 10/12/2022 Overview (03/03/2023): 10/12/2022, Laith Spears NP, Psychairty Generalized anxiety disorder 08/17/2022 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 Anxiety 12/18/2019 Ganglion cyst of dorsum of right wrist 0 Insomnia 12/18/2019 Learning difficulty 10/25/2019 Attention deficit hyperactiv ity disorder (ADHD), 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 Dysmenorrhea in adolescent 04/15/2019 Other iron deficiency anemias 04/15/2019 Bilateral pronation deformity of feet 06/19/2018 Stress due to family tension 06/05/2018 Allergic rhinitis 12/24/2016 Bunion 09/27/2014 Resolved Problems Problem Noted Date Diagnosed Date Resolved Date Severe obesity due to excess calories without serious comorbidity with body mass index (BMI) greater than 99th percentile for age in pediatric patient (CMS code) 04/15/2019 10/17/2021 Chronic pain of both knees 06/19/2018 0 04/19/2020 Encounters Date Type Department Care Team Description 03/05/2025 2:00 PM PDT Office Visit [facility] Adolescent Medicine [address] [place] [phone] Ela Spears MD Need for meningococcal vaccination (Primary Dx); Menstrual bleeding problem; Attention deficit hyperactivity disorder (ADHD), predominantly inattentive type; 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; Dysmenorrhea 02/18/2025 1:45 PM PDT Office Visit [facility] General Pediatric Medicine [address] [place] [id number] Chio Mcintyre MD Menstrual bleeding problem; Anxiety from Last 3 Months Immunizations Immunization Administration Dates Next Due DTaP 04/24/2008, 6,03/30/2005,09/08,2003,2003 HPV 4 GARDASIL 01/06/2015,09/25/2014 HPV 9 GARDASIL 05/08/2015 Hep B/HiB 11/11/2004 Hepatitis A 11/22/2006,04/07/2006 Hepatitis B, Ped/Adol 11/11/2004,09/08/2004,11/30 Hib, Unspecified 11/11/2004,09/08/2004, 4 IPV 04/24/2008, 5,09/08/2004,12/24 Influenza 07/29/2022,06/05/2019 Influenza Nasal 06/04/2015 Influenza Split 09/06/2017 Influenza, Unspecified 07/29/2022,06/05/2019,12/2017 Influenza-CC 05/05/2023 MMR 04/24/2008,11/11/2004 Meningococcal Group A/C/W/Y conjugate 04/16/2020 ,01/06/2015 Meningococcal Group B (Bexsero) 03/05/2025 Pfizer Bivalent Covid (12+) 04/20/2022 Pfizer Covid Vaccine ([place] Top) 08/26/2021 Pfizer Sars-Cov-2 Vaccine (Purple Top) ,11/21/2020 Pneumococcal Conjugate (Prevnar 7) 07/12,03/30/2005,09/08/2004,12/24 Tdap 11/01/2024,09/25/2014 Varicella 04/24/2008,11/11/2004 Social History Tobacco Use Types Packs/Day Years Used Date Smoking Tobacco: Some Days Vape Passive Smoke Exposure: Never Smokeless Tobacco: Never Tobacco Cessation:Ready to Q uit: Not Asked; Counseling Given: Not Answered Comments:Occasional vaping Alcohol Use Standard Drinks/Week Comments Never 0 (1 standard drink = 0.6 oz pur e alcohol) [facility] Utilities Answer Date Recorded In the past 12 months has [employer], gas, oil, or water company threatened to [...] place to sleep or slept in a fpc (including now)? No 09/21/2023 Comments No Sex and Gender Information Value Date Recorded Sex Assigned at Female 08/25/2022 4:24 PM PST Legal Sex Female 2:42 PM PST Gender Identity Nonbinary / Gender Queer 023 4:24 PM PST Sexual Orientation Queer 07/04/2023 8: 54 AM PST Last Filed Vital Signs Vital Sign Reading [...] Mass Index 40.59 03/05/2025 1:57 PM PDT Plan of Treatment Health Maintenance Due Date Last Done Comments Hepatitis B Routine Screening 2003 Organ Inventory 2003 Chlamydia and Gonorrhea Screening 2019 HIV Routine Screening 2021 Hepatitis C Routine Screening 2021 Pneumococcal Vaccine (0-49 y ears) (1 of 2 - PCV) 2022 07/12/2005, 03/30/2005, 09/08/2004, Additional history exists Cervical Cancer Screening 2024 Tobacco Cessation Counseling 02/14/2025, 02/15/2024, 03/11/2021 Influenza Vaccines (#1) 2025 05/05/20 23, 07/29/2022, 07/29/2022, Additional history exists Depression: Monitoring: Full PHQ-9 05/05/20252024 Meningitis B Vaccines (2 of 2 - Bexsero SCDM 2-dose series) 09/05/2025 03/05/2025 Tobacco Screening 02/18/2026 02/18/2025 Td Immunization 11/01/2034 11/01/2024, 09/25/2014 Zoster Vaccines (1 of 2) 2053 Hepatitis B Vaccines Completed 11/11/2004, 11/11/2004, 09/08/2004, Additional history exists HPV Vaccines Completed 05/08/2015, 03/2015, 09/25/2014 Covid-19 Vaccine Completed 05/10/2024, 06/2023, 04/20/2022, Additional history exists Tdap Immunization Completed 11/01/2024, 09/25/2014 Depression Screening (Annual PHQ2) Completed 2024, 07/27/2024 Procedures Procedure Name Priority Date/Time Associated Diagnosis Comments HC BLOOD COUNT HEMOGLOBIN 134 Routine 02/18/2025 2:19 PM PDT from Last 3 Months Results * POC Hemoglobin (02/18/2025 2:19 PM PDT) [facility] Signature Hemoglobin 12.0 g/dL 02/19/2025 8:37 AM PDT [facility] Blood BLOOD SPECIMEN / Unknown 02/18/2025 2:19 PM PDT 02/19/2025 8:37 AM PDT Narrative [facility] - 02/19/2025 8:37 AM PDT Performed at [facility] Performed by Giselle Beck Patient may be [...] appropriate reference interval for the hormonal gender ([facility]: [email or web address] [facility]: [email or web address]). Chio Mcintyre MD POCT ORDERABLES - NO CE Final Result [facility] [address] [place] [address], 000 from Last 3 Months Insurance [facility] [employer] [facility] Address: [place] [address] [phone] [address] Care Teams Radiation / Chemistry Technician Relationship Specialty Start Date End Date Provider, None Per Patient PCP - General 01/07/25
--- OUTSIDE RECORDS SUMMARY | 2025-04-17 15:02 | XMS_ITS | Clinical Summary ---
Author Organization [facility] Address [address] [place] [id number] Care Team Providers Care Concrete Layer Name Role Phone Evelia Garcia MD Primary Care Provider Allergies Active Allergy Reactions Criticality Noted Date Comments Adhesive *Unknown,*Unknown - Follow up needed 04/13/2023 Cantaloupe Chest Pain,Hives,Itching,Rash 05/15/2023 [place] And Derivatives Anaphylaxis High 12/15/2022 Dust Mites Itching,Runny Nose 08/13/2024 Grapefruit GI Upset,Rash 04/20/2022 Lactase GI Upset High 12/15/2022 Pineapple Hives,Rash Medium 03/09/2022 Radish Cough,Hives,Itching, Nausea Only,Rash Low 09/30/2014 Tomato Itching,Rash High 10/12/2022 Unlisted Allergen (Include Detail In Comments) Cough,Hives,Itching,Rash 09/30/2014 Medications fluticasone (50 mcg per actuation) nasal solution (FLONASE) Inhale 1 [place] into affected nostril(s). 023 Active loratadine (CLARITIN) 10 mg tablet Take 10 mg by mouth. 023 Active ibuprofen (ADVIL; MOTRIN) 600 mg tablet Take 600 mg by mouth every 6 hours if needed. 023 Active polyethylene glycoL (MIRALAX) 17 gram/scoop powderIndications :Constipation, unspecified constipation type Mix 1 scoop (17 g) in liquid then take by mouth once daily if needed for Constipation. 510 g Active Aerochamber MV Use as instructed Active OneTouch Delica Plus Lancet 33 gauge misc DIRECTED CHECK BLOOD SUGAR WHEN SYMPTOMS OCCUR Active sucralfate (CARAFATE) 1 gram tabletIndications :Chronic constipation,Abdo jenna pain, generalized Take 1 Tablet (1 g) by mouth four times daily before meals and at bedtime. 120 Tablet Active albuterol HFA (PRO-AIR; VENTOLIN; PROVENTIL) 90 mcg/actuation inhalerIndication s:Mild intermittent asthma without complication (HC) Inhale 2 Puffs by mouth every 4 hours if needed for Shortness Of Breath or Wheezing. 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 Max 12 puffs per day. 1 Each Active EPINEPHrine (EpiPen) 0.3 mg/0.3 mL auto-injectorIndi cations:Urticaria Inject 0.3 mg (1 Pen) intramuscular each time if needed for Allergic Reaction. 2 Each Active ondansetron (ZOFRAN ODT) 4 mg disintegrating tabletIndications :Nausea PLACE 1 TABLET (4 MG) ON THE TONGUE EVERY 8 HOURS IF NEEDED FOR NAUSEA/VOMITING . 20 Tablet Active blood sugar diagnostic (OneTouch Ultra Test) stripIndications: Hypoglycemia As directed 3 times daily if needed (Hypoglycemia). Dispense item covered by pt ins. Intermittent hypoglycemia, testing three times daily as needed 100 Each 3 025 Active blood-glucose meterIndications: Hypoglycemia As directed 3 times daily if needed (Hypoglycemia). Dispense item covered by pt ins. Intermittent hypoglycemia, testing three times daily as needed 1 Each Active blood sugar diagnostic (Contour Next Test Strips) stripIndications: Hypoglycemia Dispense item covered by pt ins. Three times daily as needed for symptoms 100 Each 025 Active methylphenidate ER (Concerta) 27 mg extended release tabletIndications :Attention deficit hyperactivity disorder (ADHD), predominantly inattentive type Take 1 Tablet (27 mg) by mouth once daily. 30 Tablet 025 Active Blood-Glucose Meter (Accu-Chek Guide Glucose Meter)Indications :Hypoglycemia As directed 3 times daily if needed (Hypoglycemia). Dispense item covered by pt ins. Intermittent hypoglycemia, testing three times daily as needed. 1 Each 025 Active blood sugar diagnostic (Accu-Chek Guide test strips) stripIndications: Hypoglycemia As directed 3 times daily if needed (Hypoglycemia). Dispense item covered by pt ins. Intermittent hypoglycemia, testing three times daily as needed 300 Each 3 025 Active lancetsIndication s:Hypoglycemia As directed. Test 3 times per day. 300 Each 3 025 Active omeprazole (PRILOSEC) 20 mg Delayed-Release capsuleIndication s:History of Helicobacter pylori infection,Abdomin al pain, epigastric TAKE 1 CAPSULE (20 MG) BY MOUTH ONCE DAILY BEFORE A MEAL. 30 Capsule 025 Active hydrOXYzine HCL (ATARAX) 50 mg tabletIndications :Generalized anxiety disorder Take 1 tablet (50 mg) by mouth twice daily as needed for anxiety/sleep. 90 Tablet 1 025 Active sertraline (ZOLOFT) 100 mg tabletIndications :Generalized anxiety disorder,Obsessiv e-compulsive disorder, unspecified type Take 1 Tablet (100 mg) by mouth once daily. 90 Tablet 1 025 Active methylphenidate ER (Concerta) 27 mg extended release tabletIndications :Attention deficit hyperactivity disorder (ADHD), predominantly inattentive type Take 1 Tablet (27 mg) by mouth once daily. 30 Tablet 025 2024 Active methylphenidate ER (Concerta) 27 mg extended release tabletIndications :Attention deficit hyperactivity disorder (ADHD), predominantly inattentive type Take 1 Tablet (27 mg) by mouth once daily. 30 Tablet 025 2024 Active methylphenidate ER (Concerta) 27 mg extended release tabletIndications :Attention deficit hyperactivity disorder (ADHD), predominantly inattentive type Take 1 Tablet (27 mg) by mouth once daily. 30 Tablet Active blood-glucose meterIndications: Hypoglycemia Dispense meter, test strips, lancets covered by pt ins. For Hypoglycemia. Check blood sugar when symptoms occur. 1 Each 023 2024 Discontinued(D uplicate therapy (E-cancel not sent)) lancetsIndication s:Hypoglycemia As directed. Test 3 times per day. 200 Each 12 025 2024 Discontinued(R eorder (E-cancel not sent)) omeprazole 20 mg tabletIndications :History of Helicobacter pylori infection,Abdomin al pain, epigastric Take 1 Tablet (20 mg) by mouth once daily before a meal. 30 Tablet 025 2024 Discontinued hydrOXYzine HCL 50 mg tabletIndications :Generalized anxiety disorder Take 1 tablet (50 mg) by mouth twice daily as needed for anxiety/sleep. 90 Tablet 1 025 2024 Discontinued(R eorder (E-cancel not sent)) sertraline 100 mg tabletIndications :Generalized anxiety disorder,Obsessiv e-compulsive disorder, unspecified type Take 1 Tablet (100 mg) by mouth once daily. 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 11/01/2024 Obsessive-compulsive disorder 08/13/2024 Eating disorder 08/13/2024 Borderline personality disorder 08/13/2024 Polycystic ovaries 04/19/2024 POTS (postural orthostatic tachycardia syndrome) 06/13/2023 Syncope and collapse 06/13/2023 Generalized anxiety disorder 10/13/2022 Attention deficit hyperactiv ity disorder (ADHD), predominantly inattentive type 10/13/2022 Controlled substance agreement signed 10/12/2022 Overview (10/12/2022): 10/12/2022, Laith SpearsBASE FILLER, Psychairty Resolved Problems Problem Noted Date Diagnosed Date Resolved Date AN (anorexia nervosa) 11/01/20242024 Bipolar II disorder 08/26/2022 10/23/19 Encounters Date Type Department Care Team Description 04/15/2025 9:45 AM CDT Office Visit [facility] [address] [place] [address] Shila Spears NP Follow Up; Medication Management 04/15/2025 Travel 04/11/2025 Refill [facility] [address] [place] [address] Shila Spears, RONY Refill Request (Sertraline) 04/11/2025 Refill [facility] [address] [place] [address] Evelia Garcia MD Refill Request (Omeprazole) 04/10/2025 Travel 04/09/2025 Refill [facility] [address] [place] [address] Evelia Garcia MD Refill Request (Diabetic Meter, Lancets, Strips) from Last 3 Months Immunizations Immunization Administration [...] (Flumist) 06/04/2015 MMR 04/24/2008,11/11/2004 Meningococcal Vaccine (Menactra) 04/16/2020,06/0 03/2015 Pneumococcal conj 7-Valent (Prevnar 7) 1 2004,03/30/2005,09/08/2004,12/24 Tdap 11/01/2024,09/25/2014 Varicella Vaccine 04/24/2008,11/11/2004 Social History Tobacco Use Types Packs/Day Years Used Date Smoking Tobacco: Never Passive Smoke Exposure: Never Smokeless Tobacco: Never Tobacco Cessation:Counseling Given: Yes Alcohol Use Standard Drinks/Week Comments Not Currently 0 (1 standard drink = 0.6 oz pur e alcohol) rare PHQ-2 Answer Date Recorded PHQ-2 TOTAL SCORE 4 04/15/2025 Social Connections Answer Date Recorded Do you [...] Sex Assigned at Female 08/31/2022 10:12 AM 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 Legal Sex Female 9:15 AM CDT Gender Identity nonbinary 09/04/2022 11:21 PM 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 Sexual Orientation Not on file Travel History Travel Start Travel End [place] 12/20/2024 04/01/2025 Obstetrics History Last Filed Vital Signs Vital Sign Reading Time Taken Comments Blood Pressure 120/74 04/15/2025 9:40 AM CDT Pulse 92 04/15/2025 9:40 AM CDT Temperature 36.9 C (98.4 F) 07/02/2024 9:05 AM [employer] 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 Respiratory Rate 16 05/16/2024 12:19 AM CDT Oxygen Saturation 98% 12/06/2024 10:50 AM CDT Inhaled Oxygen Concentration - - Weight 123.4 kg (272 lb) 04/15/2025 9:40 AM CDT Height 174 cm (5' 8.5) 07/02/2024 9:05 AM 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 Body Mass Index - - Plan of Treatment Upcoming Encounters Date Type Department Care Team (Late st Contact Info) Description 04/23/2025 2:50 PM CDT Office Visit [facility] [address] [place] [address] Evelia Garcia MD [address] [place] [address] 07/16/2025 9:15 AM 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 Office Visit [facility] [address] [place] [address] Shila Spears NP [address] [place] [address] Health Maintenance Due Date Last Done Comments HIV for age 15-65 2018 Chlamydia for age 16-24 2019 Hepatitis C screening for ag e 18-79 2021 Pneumococcal series for age 6-49 (1 of 2 - PCV) 2022 07/12/2005, 03/30/2005, 09/08/2004, Additional history exists Pap test for age 21-65 2024 Influenza Vaccine (#1) 2025 , 05/05/2023, 07/29/2022, Additional history exists BMI (ht and wt on same day) for age 18+ 07/02/2025 07/02/2024, 04/22/2023, 11/09/2022, Additional history exists Depression screening for age 12+ 04/15/2026 04/15/2025, 10/22/2024, 09/25/2024, Additional history exists Tetanus booster 11/01/2034 11/01/2024, 09/25/2014 RSV vaccine for adults or (1 - 1-dose 75+ series) 2078 Hepatitis B series for 19+ Completed 11/11, 11/11/2004, 09/08/2004, Additional history exists HPV series for age 9-45 Completed 05/08/20 15, 01/06/2015, 09/25/2014 HPV series for age 9-45 Completed 05/08/20 15, 01/06/2015, 09/25/2014 Meningococcal series for age 11-21 Completed 2019, 01/06/2015 COVID-19 vaccine series Completed 05/10/20, 05/11/2023, 04/20/2022, Additional history exists Insurance Care Teams Concrete Layer Relationship Specialty Start Date End Date Evelia Garcia MD [address] [place] [address] PCP - General Family Practice 08/06/22
--- OUTSIDE RECORDS SUMMARY | 2025-04-17 15:02 | XMS_ITS | Referral Summary ---
Author Organization [facility], [facility], and Affiliates Address [address] [place] [address] Care Team Providers Care Supervisor Paint Department Name Role Phone Provider, None Per Patient Primary Care Provider Encounters Date Type Department Care Team Description 03/05/2025 2:00 PM PDT Office Visit [facility] Adolescent Medicine [address] [place] [address] Ela Spears MD Need for meningococcal vaccination (Primary Dx); Menstrual bleeding problem; Attention deficit hyperactivity disorder (ADHD), predominantly inattentive type; 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; Dysmenorrhea 02/18/2025 1:45 PM PDT Office Visit [facility] General Pediatric Medicine [address] [place] [address] Chio Mcintyre MD Menstrual bleeding problem; Anxiety from Last 3 Months Allergies Active Allergy Reactions Criticality Noted Date Comments Adhesive Unknown 04/13/2023 [place] And Derivatives Anaphylaxis High 12/15/2022 Grapefruit Other [...] pain of both knees 06/19/2018 0 04/19/2020 Immunizations Immunization Administration Dates Next Due DTaP [...] drink = 0.6 oz pur e alcohol) [facility] Utilities Answer Date Recorded In the past 12 months has [employer], gas, oil, or water company threatened to [...] place to sleep or slept in a jail (including now)? No 09/21/2023 Comments No Sex [...] 03/05/2025 1:57 PM PDT Plan of Treatment Not on file Procedures Procedure Name Priority Date/Time Associated Diagnosis Comments HC BLOOD COUNT HEMOGLOBIN 134 Routine 02/18/2025 2:19 PM PDT from Last 3 Months Results * POC Hemoglobin (02/18/2025 2:19 PM PDT) [facility] Hemoglobin 12.0 g/dL 02/19/2025 8:37 AM PDT [facility] Blood BLOOD SPECIMEN / Unknown 02/18/2025 2:19 PM PDT 02/19/2025 8:37 AM PDT Narrative [facility] - 02/19/2025 8:37 AM PDT Performed at [place] Performed by Giselle Beck Patient may be [...] appropriate reference interval for the hormonal gender ([facility]: [email or web address] [facility]: [email or web address]). us Chio Mcintyre MD POCT ORDERABLES - NO CE Final Result [facility] [address] [place] [address], 000 from Last 3 Months Insurance [facility] [place] [id number] [facility] Care Teams Supervisor Paint Department Relationship Specialty Start Date End Date Provider, None Per Patient PCP - General 01/07/25
[2025-04-17 15:14] VITALS: BP 137/88
== END 2025-04-17 15:47 | disposition home or self-care (01) ==
PROVIDERS: Emergency Provider Family Medicine; PCP Family Medicine
DX: S93.402A Sprain of unspecified ligament of left ankle, initial encounter (principal); W10.9XXA Fall (on) (from) unspecified stairs and steps, initial encounter
CPT/HCPCS: 73610; 99283; 99284; J7030